=== PATIENT | female | born 1995 | race Caucasian/White ===

== ENCOUNTER 2019-03-23 10:57 | Outpatient (CLI) | payer BC, SELFPAY ==
[2019-03-23 11:50] LABS: Abs Immature Grans 0.01 k/cumm (0.0-0.09); Absolute Basophil Count 0.03 k/cumm (0.0-0.2); Absolute Eosinophil Count 0.13 k/cumm (0.0-0.7); Absolute Lymphocyte Count 1.49 k/cumm (1.2-3.4); Absolute Monocyte Count 0.58 k/cumm (0.11-0.7); Absolute Neutrophil Count 4.79 k/cumm (1.2-6.7); Basophils % 0.4; Eosinophils % 1.8; HCT 35.7 % (36.0-46.0); HGB 12.5 g/dL (12.0-15.5); Immature Grans % 0.1; Lymphocytes % 21.2; Mean Corpuscular Hemoglobin 32.1 pg (27.0-33.0); Mean Corpuscular Volume 91.5 fL (80-95); Mean Platelet Volume 11.5 fL (8.0-11.0); Monocytes % 8.3; Neutrophils % 68.2; Platelet Count 220 x1000/uL (130-400); White Blood Cell Count 7.03 k/cumm (4.4-10.8)
[2019-03-23 13:10] LABS: HCG Quant, Pregnancy 45346 mIU/mL (1-3); TSH (W/Ref FT4) 2.03 uIU/mL (0.36-3.74)
[2019-03-24 10:12] LABS: Rubella IgG Ab (UVM) Positive; Varicella IgG Antibody Negative
[2019-03-24 10:33] LABS: Hepatitis B Surface Ag Negative (NEGAT)
[2019-03-24 10:49] LABS: HIV-1/2 Ag & Ab Screen Negative (NEGAT)
[2019-03-24 10:50] LABS: Hepatitis C Ab w Rflx HCV PCR Negative (NEGAT)
[2019-03-24 12:57] LABS: Syphilis Total Ab w/Reflex Nonreactive (Nonreactive)
== END 2019-03-23 11:17 ==
PROVIDERS: PCP Internal Medicine; Visit Provider Advanced Practice Midwife
DX: Z34.91 Encounter for supervision of normal pregnancy, unspecified, first trimester (principal); R10.9 Unspecified abdominal pain
CPT/HCPCS: 36415; 86787; 86803; 86850; 86900; 86901; 87340; 87389; 84443; 84702; 85025; 86762; 86780

== ENCOUNTER 2019-04-02 11:03 | Outpatient (CLI) | payer BC, SELFPAY ==
[2019-04-02 13:50] LABS: HCG Quant, Pregnancy 53870 mIU/mL (1-3)
== END 2019-04-02 11:23 ==
PROVIDERS: PCP Internal Medicine; Visit Provider Obstetrics & Gynecology
DX: Z34.91 Encounter for supervision of normal pregnancy, unspecified, first trimester (principal)
CPT/HCPCS: 36415; 84702

== ENCOUNTER 2019-04-04 04:45 | Outpatient (CLI) | payer BC, SELFPAY | END 2019-04-04 05:05 | PROVIDERS: PCP Internal Medicine; Visit Provider Obstetrics & Gynecology | DX: Z34.91 Encounter for supervision of normal pregnancy, unspecified, first trimester (principal) | CPT/HCPCS: 36415; 84702 ==

== ENCOUNTER 2019-04-07 16:46 | Outpatient (CLI) | payer BC, SELFPAY ==
[2019-04-07 17:15] LABS: Abs Immature Grans 0.01 k/cumm (0.0-0.09); Absolute Basophil Count 0.03 k/cumm (0.0-0.2); Absolute Eosinophil Count 0.22 k/cumm (0.0-0.7); Absolute Lymphocyte Count 1.66 k/cumm (1.2-3.4); Absolute Monocyte Count 0.54 k/cumm (0.11-0.7); Absolute Neutrophil Count 5.07 k/cumm (1.2-6.7); Basophils % 0.4; Eosinophils % 2.9; HCT 37.5 % (36.0-46.0); HGB 12.9 g/dL (12.0-15.5); Immature Grans % 0.1; Mean Corp. HGB Concentration 34.4 g/dL (32.0-36.0); Mean Corpuscular Hemoglobin 31.4 pg (27.0-33.0); Mean Corpuscular Volume 91.2 fL (80-95); Mean Platelet Volume 11.4 fL (8.0-11.0); Monocytes % 7.2; Neutrophils % 67.4; Platelet Count 210 x1000/uL (130-400); RBC 4.11 m/cumm (4.00-5.20); RBC Distribution Width 12.1 % (11.7-14.6); White Blood Cell Count 7.53 k/cumm (4.4-10.8)
== END 2019-04-07 17:06 ==
PROVIDERS: PCP Internal Medicine; Visit Provider Urology
DX: O02.1 Missed abortion (principal)
CPT/HCPCS: 36415; 86850; 86900; 86901; 85025

== ENCOUNTER 2019-04-08 13:47 | Observation (INO) | payer BC, SELFPAY ==
[2019-04-08] VITALS (26 sets, daily range): BP systolic 86–116; BP diastolic 39–68; PULSE 60–91; RESP 10–20; TEMP 36.2–37.1; O2SAT 96–100
[2019-04-08] MEDS: Lactated Ringers 1,000 ML 125 ML IV ×3 (07:43→16:35)
--- NOTE | 2019-04-08 08:35 | POCSPONT_PTH ---
PATIENT: Madeleine Menchaca LOC: OBS U#:[id number] AGE/SX: 23/F ROOM: OBS.305 RE04/08/[address]: Marlon Bauer MD : 1995 BED: A DIS: 04/08/2019 SPEC #: [id number] RECD: 04/08/19 13:01 STATUS: RACHAEL REJessica #: [id number] MIAH: 04/08/19 08:[address]: Marlon Bauer DEPT: Surgical Specimen RECD BY: Naomi De La Cruz ENTERED: 04/08/19 13:04 SP TYPE: POCSPONT NAZ DR: Alis Castellon Tissues: 1 - ,SPONTANEOUS Procedures: GROSS AND MICRO LEVEL 4 Comments: [id number]
[2019-04-08] MEDS: fentaNYL 100 MCG/2 ML VIAL IVP ×3 (09:18→09:35)
--- NOTE | 2019-04-08 09:34 | W.PM.DSUDISC ---
Discharge Plan Disposition Patient Disposition: HOME Condition: Good Discharge Details Attending Provider: Marlon Bauer Primary Care Provider: Alis Castellon Home Meds and New Rx's Prescriptions: New hydrocodone-acetaminophen 5-325 mg Tablet 1 tab PO Q4H PRN PRNQty: 10 RF: 0 Continued acetaminophen 500 mg capsule 1,000 mg PO Q4H PRNRF: 0 albuterol sulfate 90 mcg/actuation HFA aerosol inhaler 2 puff IH Q4H PRNRF: 0 vitamin B complex Capsule 1 cap PO DAILY RF: 0 dicyclomine 20 mg tablet 20 mg PO QID PRNRF: 0 sucralfate [Carafate] 1 gram tablet 1 gm PO Q6H PRNRF: 0 pantoprazole [Protonix] 20 mg tablet,delayed release (DR/EC) 20 mg PO BID RF: 0 albuterol sulfate 8.5 GM HFA aerosol inhaler 2 puff PRN RF: 0 DS: Diagnosis Discharge Diagnosis (1) Missed : Status: Acute
[2019-04-08] MEDS: HYDROcodone 5/Acetaminophen 325 TAB PO (10:13)
[2019-04-08] MEDS: HYDROmorphone 2 MG/ML VIAL 0.5 MG IVP (11:15)
[2019-04-08] MEDS: LORazepam 2 MG/ML VIAL 0.5 MG IVP (11:31)
--- NOTE | 2019-04-08 14:45 | SUR.PHASEI ---
Pt was re-admitted to Phase 1 at 1110 for uncontrolled pain in Phase 2 recovery. Gege Neal from anesthesia was present and ordering pain medication to be administered. Pt was monitored and also received 0.5 mg ativan IV. Vital signs remained stable. When pt awoke from a nap her painand nausea were gone and she was ready to again be transferred to Phase 2 at 1216.
[2019-04-08] MEDS: Ketorolac 30 MG/ML VIAL IVP (16:33)
--- NOTE | 2019-04-08 17:05 | W.PM.OP ---
Date of service: 04/08/19 Time of Service: 17:05 Operative Note Operative Note DATE OF PROCEDURE: 04/08/19 PRE-OP DIAGNOSIS: Missed POST-OP DIAGNOSIS: same PROCEDURE: Suction D&C SURGEON: Marlon Bauer ANESTHESIA: MICHELLE ESTIMATED BLOOD LOSS: 50 PATHOLOGY: other (POC) COMPLICATIONS: None Patient was transported to: PACU Patient's condition: stable Procedure Description: The patient was taken to the operating room and after adequate level of general anesthesia was obtained the patient was placed in lithotomy position. The patient was prepped and draped in usual sterile manner. A weighted speculum was placed in the vagina with good visualization of the cervix. The anterior lip of the was grasped with a single-tooth tenaculum. The cervix was gently dilated with Echevarria dilators. An 8 [place] curved suction curette was advanced easily. Suction apparatus have been tested and activated. The curette was rotated. Copious products of conception were retrieved. Sharp curettage was performed. A second pass with the suction curette yielded additional products. A final sharp curettage confirmed uterine evacuation. The procedure was concluded at this point. All instrumentation was removed. The patient was transferred to PACU in stable condition.
--- NOTE | 2019-04-08 17:07 | W.PM.PROGNOT ---
Date of Service Date of service: 04/08/19 Time of Service: 17:08 Assessment and Plan Assessment and plan (1) Missed : Status: Acute Assessment and plan: Poor pain control postoperatively. This seems to be improved now. I feel that the patient is suitable for discharge home. We will follow-up with the patient over the phone tomorrow morning and she will follow-up in the office next week. Subjective Subjective Interval history since last seen: Postoperatively the patient was somewhat hypotensive in recovery. Her pain was poorly controlled. She had received 100 mcg of fentanyl immediately postoperatively. She was also supplied with 30 mg of IV Toradol and recovery. Due to pain she was given an additional dose of Dilaudid which did help her pain but also made her somewhat obtunded and nauseous. The decision was made to transfer the patient to the floor for observation through the day. Upon transfer she was given IV Tylenol and a B&O suppository. This afternoon she is still somewhat tired but feels better. Her pain is well controlled. Still has some mild nausea but has had no vomiting. Bleeding is minimal. Exam GI Other: On exam her abdomen is soft and appropriately tender. Objective Objective Clinical Data: Vital Signs Temperature 98.2 F 04/08/19 16:15 Temperature Source Tympanic 04/08/19 16:30 Pulse 87 04/08/19 16:30 Pulse Rhythm Regular 04/08/19 16:00 Respiratory Rate 18 04/08/19 16:30 Respiratory Effort 04/08/19 16:00 Respiratory Depth Normal 04/08/19 16:00 Respiratory Pattern Normal 04/08/19 16:00 Blood Pressure 116/68 04/08/19 16:30 Pulse Oximetry 96 04/08/19 16:30 Oxygen Delivery Method Room Air 04/08/19 16:30 Oxygen Flow Rate 0 04/08/19 16:30 Pain Level 5 04/08/19 16:33 Intake & Output 04/07/19 04/08/19 04/08/19 23:59 11:59 23:59 Intake Total 1022.917 / 2122.917 1100 / 2122.917 Balance 1022.917 / 2122.917 1100 / 2122.917 Weight 139 lb 15.896 oz Intake: IV 822.917 / 7045.216 4558 / 1822.917 Oral 200 / 300 100 / 300 Other: Urine Appearance Clear Emesis Description None None
== END 2019-04-08 17:34 | disposition home or self-care (01) ==
LOC: SUR 14:07 → OBS 16:33
PROVIDERS: Admitting Provider Obstetrics & Gynecology; PCP Internal Medicine; Visit Provider Obstetrics & Gynecology
PROC: 10D17ZZ Extraction of Products of Conception, Retained, Via Natural or Artificial Opening (ICD-10-PCS; CPT 59841; principal; 2019-04-08 08:15)
DX: O02.1 Missed abortion (principal); G89.18 Other acute postprocedural pain
CPT/HCPCS: 59820; 88305; 99233; J1100; J1885; J2060; J2250; J2405; J3010

== ENCOUNTER 2019-04-12 10:09 | Outpatient (CLI) | payer BC, SELFPAY ==
--- NOTE | 2019-04-12 09:47 | DI.US_ITS ---
EXAM: US PELVIS TRANSVAGINAL CLINICAL HISTORY: Missed , O02.1, Rule out retained products of conception, S/P D C TECHNIQUE: Ultrasound performed using standard protocol. COMPARISON: CHEST ABD PELVIS WITH CONTRAST from 05/30/2016 FINDINGS: The uterus measures 9.1 x 4.4 x 6.5 cm. There is mixed echogenicity material seen within the endome trium, which is avascular, likely representing clot. There is no definite evidence of retained produ cts of conception. The clot measures 4.3 x 1.8 x 3.5 cm. The ovaries are normal in size and appeara nce. There is no free fluid. IMPRESSION: Heterogeneous material within the endometrial cavity, consistent with clot. No visible retained prod ucts of conception.
[2019-04-12 10:39] LABS: Abs Immature Grans 0.01 k/cumm (0.0-0.09); Absolute Basophil Count 0.01 k/cumm (0.0-0.2); Absolute Eosinophil Count 0.19 k/cumm (0.0-0.7); Absolute Lymphocyte Count 0.91 k/cumm (1.2-3.4); Absolute Monocyte Count 0.65 k/cumm (0.11-0.7); Basophils % 0.2; Eosinophils % 3.1; HCT 29.7 % (36.0-46.0); HGB 10.1 g/dL (12.0-15.5); Immature Grans % 0.2; Lymphocytes % 14.7; Mean Platelet Volume 11.3 fL (8.0-11.0); Monocytes % 10.5; Neutrophils % 71.3; Platelet Count 173 x1000/uL (130-400); RBC 3.16 m/cumm (4.00-5.20); RBC Distribution Width 12.6 % (11.7-14.6); White Blood Cell Count 6.17 k/cumm (4.4-10.8)
== END 2019-04-12 10:29 ==
PROVIDERS: PCP Internal Medicine; Visit Provider Obstetrics & Gynecology
DX: O02.1 Missed abortion (principal); R10.9 Unspecified abdominal pain; N85.8 Other specified noninflammatory disorders of uterus; Z98.890 Other specified postprocedural states
CPT/HCPCS: 36415; 76830; 76856; 85025

== ENCOUNTER 2019-08-16 14:43 | Outpatient (CLI) | payer BC, SELFPAY ==
[2019-08-16 15:20] LABS: HCG Quant, Pregnancy 210 mIU/mL (1-3)
== END 2019-08-16 15:03 ==
PROVIDERS: PCP Internal Medicine; Visit Provider Obstetrics & Gynecology
DX: Z34.91 Encounter for supervision of normal pregnancy, unspecified, first trimester (principal)
CPT/HCPCS: 36415; 84702

== ENCOUNTER 2019-08-18 00:15 | Outpatient (CLI) | payer BC, SELFPAY ==
[2019-08-18 10:59] LABS: HCG Quant, Pregnancy 454 mIU/mL (1-3)
== END 2019-08-18 00:35 ==
PROVIDERS: Obstetrics & Gynecology; PCP Internal Medicine; Visit Provider Internal Medicine Gastroenterology
DX: R10.2 Pelvic and perineal pain (principal); Z32.01 Encounter for pregnancy test, result positive
CPT/HCPCS: 36415; 84702

== ENCOUNTER 2019-09-21 10:53 | Outpatient (REF) | payer BC, SELFPAY ==
--- NOTE | 2019-09-21 10:30 | PAPFT_PTH ---
PATIENT: Madeleine Menchaca LOC: [facility] U#:[id number] AGE/SX: 24/F ROOM: RE09/21/[address]: Rai Bailey RN : 1995 BED: DIS: 09/21/2019 SPEC #: [id number] RECD: 09/21/19 12:19 STATUS: RACHAEL REJessica #: [id number] MIAH: 09/21/19 10:[address]: Rai Bailey DEPT: [facility] Cytology RECD BY: Obed Davis ENTERED: 09/21/19 12:20 SP TYPE: PAPFT OTHR DR: Alis Castellon Tissues: 1 - CX/ENDOCX FOR PAP SMEARS Procedures: PAP THIN PREP/UVM Screening Comments: [id number]
[2019-09-21 11:33] LABS: Abs Immature Grans 0.03 k/cumm (0.0-0.09); Absolute Basophil Count 0.02 k/cumm (0.0-0.2); Absolute Eosinophil Count 0.32 k/cumm (0.0-0.7); Absolute Lymphocyte Count 1.46 k/cumm (1.2-3.4); Absolute Monocyte Count 0.55 k/cumm (0.11-0.7); Absolute Neutrophil Count 6.84 k/cumm (1.2-6.7); Basophils % 0.2; Eosinophils % 3.5; HCT 37.8 % (36.0-46.0); HGB 13.2 g/dL (12.0-15.5); Immature Grans % 0.3 %; Lymphocytes % 15.8; Mean Corp. HGB Concentration 34.9 g/dL (32.0-36.0); Mean Corpuscular Hemoglobin 31.6 pg (27.0-33.0); Mean Corpuscular Volume 90.4 fL (80-95); Mean Platelet Volume 10.4 fL (8.0-11.0); Neutrophils % 74.2; Platelet Count 271 x1000/uL (130-400); RBC 4.18 m/cumm (4.00-5.20); White Blood Cell Count 9.22 k/cumm (4.4-10.8)
[2019-09-21 12:07] LABS: TSH (W/Ref FT4) 1.46 uIU/mL (0.36-3.74)
[2019-09-21 14:31] LABS: *AMPHETAMINES SCREEN URINE Negative (Negative); *BARBITURATES SCREEN URINE Negative (Negative); *BENZODIAZEPINES SCREEN URINE Negative (Negative); Cannabinoids THC Negative (Negative); Cocaine Screen,Urine Negative (Negative); METHADONE URINE SCREEN Negative (Negative); OPIATES URINE SCREEN Negative (Negative)
[2019-09-21 14:36] LABS: Tricyclic Antidepressants Negative (Negative)
[2019-09-22 10:02] LABS: Hepatitis B Surface Ag Negative (Negative)
[2019-09-22 10:26] LABS: HIV-1/2 Ag & Ab Screen Negative (Negative)
[2019-09-22 10:28] LABS: Hepatitis C Ab w Rflx HCV PCR Negative (Negative)
[2019-09-22 14:41] LABS: Chlamydia Result Negative (Negative); GC Result Negative (Negative)
[2019-09-23 10:50] LABS: Syphilis Total Ab w/Reflex Nonreactive (Nonreactive)
[2019-09-24 11:38] LABS: Varicella IgG Antibody Negative (See Note)
[2019-09-24 11:50] LABS: Rubella IgG Ab (UVM) Positive (See Note)
[2019-09-26 05:56] LABS: Buprenorphine Negative; Norbuprenorphine Negative
== END 2019-09-21 11:13 ==
LOC: LBN 10:53
PROVIDERS: PCP Internal Medicine; Visit Provider Advanced Practice Midwife
DX: Z34.91 Encounter for supervision of normal pregnancy, unspecified, first trimester (principal); Z11.4 Encounter for screening for human immunodeficiency virus [HIV]; Z11.59 Encounter for screening for other viral diseases; Z01.84 Encounter for antibody response examination; Z11.3 Encounter for screening for infections with a predominantly sexual mode of transmission; Z12.4 Encounter for screening for malignant neoplasm of cervix
CPT/HCPCS: 80307; 86787; 86803; 86850; 86900; 86901; 87340; 87389; 87491; 87591; 88142; 84443; 85025; 86762; 86780; 87086

== ENCOUNTER 2019-11-22 00:26 | Outpatient (CLI) | payer BC, SELFPAY ==
--- NOTE | 2019-11-22 07:00 | DI.US_ITS ---
EXAM: US OB 2-3 TRIMESTER CLINICAL HISTORY: 18-WK ANATOMY SURVEY, Z3A.18. COMPARISON: No exams were available for comparison TECHNIQUE: Transabdominal obstetrical ultrasound performed. FINDINGS: Sonographic images demonstrate a single intrauterine gestation in breech position. Plancenta:Fundal and posterior Predicted gesational age: 18 weeks 0 days Estimated date of delivery 23 April 2020 weeks heart rate motion is Dopplered at: 157 BPM. BPD: 42 mm = 18+ 5 weeks HC: 154mm = 18+ 2 weeks AC: 125mm = 18+ 1 weeks FL: 27mm = 18+ 2 weeks EFW: N/a Grams = % Sonographically assessed composite gestational age: 18+ 3 weeks Estimated date of delivery based on this ultrasound is: 21 April 2020 Amniotic fluid index: N/a cm. Amount of fluid is within normal limits. The anatomy was reasonably well seen. No abnormalities are identified. IMPRESSION: survey is within normal limits. DATA REPOSITORY:
== END 2019-11-22 00:46 ==
PROVIDERS: PCP Internal Medicine; Visit Provider Advanced Practice Midwife
DX: Z34.92 Encounter for supervision of normal pregnancy, unspecified, second trimester (principal); Z3A.18 18 weeks gestation of pregnancy
CPT/HCPCS: 76805

== ENCOUNTER 2020-01-08 07:27 | Outpatient (CLI) | payer BC, SELFPAY | END 2020-01-08 07:47 | PROVIDERS: PCP Internal Medicine; Visit Provider Obstetrics & Gynecology | DX: O60.02 Preterm labor without delivery, second trimester (principal); Z3A.25 25 weeks gestation of pregnancy | CPT/HCPCS: 59025 ==

== ENCOUNTER 2020-01-17 04:47 | Outpatient (CLI) | payer BC, SELFPAY ==
[2020-01-17 16:46] LABS: Abs Immature Grans 0.07 10^3/uL (0.0-0.06); Absolute Basophil Count 0.02 10^3/uL (0.0-0.2); Absolute Eosinophil Count 0.19 10^3/uL (0.0-0.7); Absolute Lymphocyte Count 1.49 10^3/uL (1.2-3.4); Basophils % 0.2; Eosinophils % 2.2; HCT 30.8 % (36.0-46.0); HGB 10.7 g/dL (11.2-15.7); Immature Grans % 0.8; Lymphocytes % 17.2; MCH 31.6 pg (27.0-33.0); MCHC 34.7 % (32.0-36.0); MCV 90.9 fL (80-95); Monocytes % 6.9; Neutrophils % 72.7; Nucleated RBC 0 %; Platelet Count 202 10^3/uL (130-400); RBC 3.39 10^6/uL (3.93-5.22); RDW 12.2 % (11.7-14.6); RDW-SD 40.3 fL; WBC 8.67 10^3/uL (4.4-10.8)
[2020-01-17 17:00] LABS: Glucose,1 Hr (Glucola) 99 mg/dL (80-140)
== END 2020-01-17 05:07 ==
PROVIDERS: PCP Internal Medicine; Visit Provider Obstetrics & Gynecology
DX: Z34.90 Encounter for supervision of normal pregnancy, unspecified, unspecified trimester (principal)
CPT/HCPCS: 36415; 82950; 85025

== ENCOUNTER 2020-02-27 14:08 | Inpatient (IN) | payer BC, SELFPAY ==
[2020-02-27 14:40] VITALS: BP 103/60; PULSE 86; RESP 20; TEMP 36.6
[2020-02-27] MEDS: Terbutaline 1 MG/ML VIAL 0.25 MG SC ×2 (15:24→22:48)
[2020-02-27 16:08] VITALS: BP 111/67; PULSE 102
[2020-02-27] MEDS: Fluconazole 150 MG TAB PO (16:17)
[2020-02-27 16:21] VITALS: BP 111/67; PULSE 102
--- NOTE | 2020-02-27 18:20 | HPE_ITS ---
Date of service: 02/27/20 Time of Service: 18:20 Assessment and Plan Assessment and plan (1) contractions: Status: Acute Assessment and plan: Will place on 24 hour observation. IVF bolus with LR If contractions continue will trial Nifpedipine 10 mg PO q8h. She did have a history of hypotension from verapamil during treatment for headaches so she is at increased risk of hypotension with this approach. If contractions continue or cervical change occurs, will start on magnesium sulfate and consider transfer to [facility]. Will administer betamethasone series for lung maturity. OB-HPI Labor/Delivery History of Present Illness Reason for Visit: R/O LABOR Chief Complaint: Uterine Contractions. ТАТЬЯНА Calculator Estimated Delivery Date Method Current WG Current Estimate 04/23/20 LMP (Certain) 32w 0d Other Estimates 04/22/20 Ultrasound #1 32w 1d History of Present Expected Delivery Route/Plan - elects MD care FOB/ - Juliano Menchaca Varicella Non-Immune, pt accepts vaccination Specific Issues/Plan 1. low dose asa 2` to: nullip/mother w/ pre-e. Accepts rec. of low dose asa will initiate @ 12 weeks. 2. progesterone suppositories pv till [address] Bauer. 3. Declined all optional ap labs, declination signed al 4. Hx IBS and s/p cholecystectomy 2018 5. 28-week hematocrit 30%. Recommended patient begin daily supplemental iron. 6. Labia tenderness. No evidence of Bartholin's gland swelling. Narrative: 24 year old @ 32.0 weeks presents with complaints of possible contractions since approximately 7 am this morning. She denies leakage of fluid or vaginal bleeding. The contractions are reported as strong and ten minutes apart throughout the day. On initial evaluation the cervix was noted to be closed but 70% effaced and fetus at -3 station. She was provided a single dose of terbutaline which stopped the contractions for approximately one hour but the did recur and increase in frequency again. Review of Systems All systems reviewed & are unremarkable except as noted in HPI and below PFSH Medical History (Updated 02/27/20 @ 18:27 by Marlon Bauer MD) Anxiety Asthma Cyst of Bartholin's gland Dysuria Migraine headache with aura Surgical History History of esophagogastroduodenoscopy (EGD) Hx of appendectomy Family History (Updated 09/21/19 @ 09:55 by Rai Bailey CNM) Mother Diverticulosis of colon with hemorrhage Hypertension w/ Asthma H/O: hysterectomy Father Heart disease COPD (chronic obstructive pulmonary disease) Aneurysm of heart Social History (Updated 04/02/19 @ 10:21 by Dionne Eisenberg RN) Smoking/Tobacco Use Status: Never Alcohol Intake: never Drug use: Never Substance use type: does not use Current gender identity: female Seatbelt use: always Do you feel safe at home: Yes Do you feel safe in your relationship?: Yes History History 2 Para 0 Hx # Term Pregnancies 0 Multiple births 0 Hx # Pregnancies 0 Ectopic pregnancies 0 AB induced 0 Hx Number of Living Children 0 AB spontaneous 1 Past Pregnancies Del. Date GA/Weeks # Outcome Route Wgt Sex Labor Lgth Anesthes ia Location Prov Complic 04/08/[address] Whitman [place] Delivery Date: 04/08/19 Miscarriage at 8 with a D/C on 04/08/19 Belkis Rebolledo LPN [facility] Home Medications and Allergies Home Medications Medication Instructions Recorded Confirmed Type acetaminophen 500 mg capsule 1,000 mg PO Q4H PRN cap 03/23/19 02/27/20 History albuterol sulfate 90 mcg/actuation 2 puff IH Q4H PRN gm 03/23/19 02/27/20 History aerosol inhaler pantoprazole 20 mg tablet,delayed 20 mg PO BID tab 04/02/19 02/27/20 History release calcium carbonate 500 mg calcium 1,000 mg PO DAILY tab 08/20/19 02/27/20 History (1,250 mg) tablet prenat.vits,cierra,itd-pejy-isxla 1 tab PO DAILY 08/20/19 02/27/20 History aspirin 81 mg tablet,delayed 81 mg PO DAILY #90 tab 10/19/19 02/27/20 Rx release epinephrine 0.3 mg/0.3 mL 0.3 mg IM ONCE PRN 10/19/19 02/27/20 History injection, auto-injector promethazine 25 mg tablet 25 mg PO Q6H PRN #30 tab 02/04/20 02/27/20 Rx Allergies Allergy/AdvReac Type Severity Reaction Status Date / Time apple Allergy Verified 02/18/20 15:16 Cephalosporins Allergy Verified 02/18/20 15:16 egg Allergy Verified 02/18/20 15:16 gluten Allergy Verified 02/18/20 15:16 chico Allergy Verified 02/18/20 15:16 peach Allergy Verified 02/18/20 15:16 plum Allergy Verified 02/18/20 15:16 Sulfa (Sulfonamide Allergy Verified 02/18/20 15:16 Antibiotics) verapamil Allergy dizziness, Verified 02/18/20 15:16 headaches almonds Allergy Uncoded 02/18/20 15:16 mushrooms Allergy Uncoded 02/18/20 15:16 Exam Physical Exam Vital signs: Temp Pulse Resp BP 97.9 F 102 H 20 111/67 02/27/20 14:40 02/27/20 16:21 02/27/20 14:40 02/27/20 16:21 Detailed Labor and Delivery Exam Martinez Score: Cervical Points Exam 0 1 2 3 Dilation Closed 1-2cm 3-4 cm 5-6cm Effacement 0-30% 40-50% 60-70% 80% Consistency Firm Medium Soft Station -3 -2 -1,0 +1,+2 Position Posterior Mid Anterior Results Results Group Beta Strep: Not Done Blood Type: O+ Rubella Status: Immune Varicella Immunity: Nonimmune Risk Assessment Risk for Shoulder Dystocia Historical/Initial OB: NEGATIVE FOR: Pelvic Abnormality, Pre- BMI>30, Previous Shoulder Dystocia or Previous Macrosomia Increased Risk?: No Date/Initial: 09/21/19 al Risk for Pre-Eclampsia Daily Dose ASA Indicated: Yes (2` to nullip status & mother with b/p issues w/ her first . al) Date Initiated/Initials: 09/21/19 pt accepts rec. of low dose asa will start @ 12 weeks al. Yes, if one or more: POSTIVE FOR: APA Syndrome; NEGATIVE FOR: Hx Pre-E/Gest HTN, Chronic HTN, Multiple Gestation, Pre- gestational DM, Renal Disease or Systemic Lupus Yes, if 2 or more: POSITIVE FOR: Nulliparity and Mother/Sister w/ Pre-E (pt states her mother had b/p issues w/ her first of 3 pregnancies.); NEGATIVE FOR: Age>= 35 yrs, >10yr btwn pregnancies, BMI>30, ethinicty or Previous IUGR Risk for Post- Hemorrhage Initial: NEGATIVE FOR: Multiple Gestation, Previous PPH, Known Clotting Deficiency, Grand Multiparity or Anticoagulation At Risk?: No (@ iob 09/21/19 al) Risks Reviewed Risks Reviewed Upon Admission: Yes
[2020-02-27 18:23] VITALS: BP 108/59; PULSE 82; RESP 20; TEMP 36.9
[2020-02-27] MEDS: Lactated Ringers 1,000 ML 125 ML IV ×2 (18:24→22:48)
[2020-02-27] MEDS: Normal Saline Flush 10 ML SYR IVP (18:24)
[2020-02-27] MEDS: Lactated Ringers 500 ML IV (18:24)
[2020-02-27] MEDS: Betamet Acet/Betamet Na Ph Inj. 30 MG/5 ML 12 MG IM (19:29)
[2020-02-27 20:55] VITALS: BP 97/56; PULSE 76
[2020-02-27] MEDS: Pantoprazole 40 MG TABCR PO (22:48)
[2020-02-28] VITALS (23 sets, daily range): BP systolic 90–122; BP diastolic 50–58; PULSE 86–103; RESP 16–18; TEMP 36.5–36.8; O2SAT 99
[2020-02-28] MEDS: Normal Saline Flush 10 ML SYR IVP (03:09)
[2020-02-28] MEDS: Ondansetron 4 MG/2 ML VIAL IVP (03:09)
[2020-02-28] MEDS: MAGNESIUM SULFATE 20 GM/500 ML BAG IV ×2 (05:59→14:12)
[2020-02-28] MEDS: Lactated Ringers 1,000 ML 125 ML IV (06:05)
--- NOTE | 2020-02-28 08:19 | W.PM.PROGNOT ---
Date of Service Date of service: 02/28/20 Time of Service: 08:19 Assessment and Plan Assessment and plan (1) contractions: Status: Acute Assessment and plan: Change to full admit Continue magnesium sulfate infusion until betamethasone series is complete. If patient displays cervical change will arrange transfer to [facility]. Obtain CBC, T&S, GBS and Covid today. Subjective Subjective Interval history since last seen: The patient did receive two doses of terbutaline yesterday and continued to report contractions. At approximately 4 am the contractions increased in intensity and she displayed no cervical change overnight on multiple examinations. Because of the increase in intensity of the contractions we did start her on Magnesium sulfate this morning with a 4gm loading dose followed by 2 gm / hour thereafter. First dose of betamethasone was administered at 1900 hrs. Objective Last Vital Signs Temp 97.7 F 02/28/20 07:26 Pulse 90 02/28/20 07:26 Resp 18 02/28/20 07:26 BP 97/54 L 02/28/20 07:26 Pulse Ox 99 02/28/20 06:06
[2020-02-28 08:48] LABS: Abs Immature Grans 0.13 10^3/uL (0.0-0.06); Absolute Basophil Count 0.02 10^3/uL (0.0-0.2); Absolute Lymphocyte Count 0.75 10^3/uL (1.2-3.4); Basophils % 0.2; HCT 31.6 % (36.0-46.0); Immature Grans % 1.1; Lymphocytes % 6.3; MCH 32.4 pg (27.0-33.0); MCHC 34.8 % (32.0-36.0); MCV 92.9 fL (80-95); MPV 10.9 fL (8.0-11.0); Monocytes % 2.5; Neutrophils % 89.9; Nucleated RBC 0 %; Platelet Count 189 10^3/uL (130-400); RDW 12.5 % (11.7-14.6); RDW-SD 42.7 fL; WBC 11.83 10^3/uL (4.4-10.8)
[2020-02-28 08:50] LABS: Absolute Neutrophil Count 10.64 10^3/uL (1.2-6.7)
--- NOTE | 2020-02-28 11:30 | W.PM.PROGNOT ---
Date of Service Date of service: 02/28/20 Time of Service: 11:31 Assessment and Plan Assessment and plan (1) contractions: Status: Acute Assessment and plan: Patient has had contractions at 32 weeks and 1 day. She initially was seen last night and received tocolytics including terbutaline. This did not cease her contractions. She was not a candidate for fibronectin at that time, in light of the fact that she had had a previous cervical examination. Her contractions persisted without significant cervical change though patient at that point was somewhat uncomfortable. She was started on magnesium sulfate for tocolyse this and neuro protection in order to allow patient to have both doses of steroids 24 hours apart. I saw her and evaluated her this morning at approximately 1130. She reports subjective contractions however these do not palpate nor do the graft particularly well. Cervical change is negligible with a cervix that is approximately 50% effaced and closed with vertex high out of the pelvis. Have a 20-minute conversation both with patient and her parent regarding neuro protection, pulmonary lung maturity, delivery at 32 weeks. My impression is that at this point she is clinically stable. The suggestion would be to maintain her on her magnesium sulfate in light of the fact that that was started this morning. No cervical checks if possible for 24 hours for collection of a fibronectin swab in 24 hours time. Laboratory studies that were done are essentially unremarkable. She will have pneumatic compression stockings to help prevent thromboembolism. Spoke with Dr. Dunbar at [facility] who agrees with the current plan. We will continue tocolyse this for now. Patient will receive her second dose of steroids. She will have cervical examination as indicated for increased contractions. If no increasing contractions, defer cervical examination for 24 hours to obtain a fibronectin swab at 11 AM. If negative DC magnesium sulfate. If progression of recurrent contractions to labor would consider transfer of care to tertiary care center at [facility]. (2) : Status: Acute Subjective Subjective Patient reports: no new complaints and no bowel movement Interval history since last seen: Still having contractions, irregular. Concern about transfer to tertiary care posed by patient and mother. Numerous questions answered Exam Narrative Exam Narrative: Comfortable Const General: cooperative, healthy appearing, comfortable and no acute distress Nutritional Appearance: average body habitus Orientation: alert and oriented x3 HENMT Head: normal to inspection Eyes General: appearance normal, both eyes and all related structures Resp Effort & Inspection: normal respiratory effort and able to speak in complete sentences Auscultation: clear to auscultation bilaterally Cardio Jugular venous pressure: no JVD Palpation: normal PMI Rate: regular rate Rhythm: regular rhythm GI Inspection: normal to inspection Palpation: soft External Female Exam: normal external appearance Speculum Exam - Cervix: No cervical os open OB/External & Speculum: no bleeding, no vulvar tenderness and No cervical os open Manual OB Exam: not dilated, effaced 50% and station high Skin General skin exam: no rashes or lesions noted Neuro General: patient alert and patient oriented x3 Cognition: normal cognition Speech: speech normal Objective Last Vital Signs Temp 98.1 F 02/28/20 11:15 Pulse 93 H 02/28/20 11:18 Resp 16 02/28/20 11:15 BP 105/57 L 02/28/20 11:18 Pulse Ox 99 02/28/20 06:06 Laboratory Results - last 24 hr 02/28/20 02/28/20 08:36 08:36 WBC 11.83 H RBC 3.40 L Hgb 11.0 L Hct 31.6 L MCV 92.9 MCH 32.4 MCHC 34.8 RDW 12.5 Plt Count 189 MPV 10.9 Immature Gran % 1.1 Neutrophils % 89.9 Lymphocytes % 6.3 Monocytes % 2.5 Eosinophils % 0.0 Basophils % 0.2 Nucleated RBC % 0 Absolute Neutrophils 10.64 H Absolute Lymphocytes 0.75 L Absolute Monocytes 0.30 Absolute Eosinophils 0.00 Absolute Basophils 0.02 Patient ABO/Rh O Positive Antibody Screen Negative
[2020-02-28] MEDS: Lactated Ringers 1,000 ML 75 ML IV (14:11)
[2020-02-28] MEDS: Acetaminophen 500 MG TAB 1000 MG PO (15:29)
--- NOTE | 2020-02-28 16:40 | PGE_ITS ---
Date of Service Date of service: 02/28/20 Time of Service: 16:40 Assessment and Plan Assessment and plan (1) contractions: Status: Acute Assessment and plan: Patient has had contractions without significant labor. She has had no cervical change. She has had an overwhelmingly reactive heart rate tracing during the course of her stay with us. She has no bleeding or discharge. She is received 1 dose of betamethasone is due for her second to complete a course. Due to her symptomatology and her lack of contractions magnesium sulfate was discontinued. We had a lengthy conversation both with patient and her mother regarding the difference between contractions and true labor. She appears to be well, and not in labor. We will discontinue her magnesium sulfate. She will receive that second dose of betamethasone this evening. If she continues to be asymptomatic, she will be discharged home. She understands pelvic rest. She will be seen back in the hospital tomorrow at 11:00 for fibronectin swab. If her fibronectin is negative she will have a routine care. If it is positive we may modify with more frequent monitoring. Subjective Subjective Interval history since last seen: Patient seen and examined this afternoon. On presentation to the room she states that she was having some chest heaviness in her upper chest and neck area. Her vital signs are stable. She has had a scant and irregular contraction. Baby is moving and active. She denies vaginal bleeding. She has no chest pain other than her reported heaviness. Exam Narrative Exam Narrative: Patient seen and examined and magnesium sulfate was turned off due to this chest heaviness. Her lungs are clear her abdomen is soft and no ntender. Category 1 heart rate tracing with no palpable or appreciable contractions noted. Her extremities have no clubbing cyanosis or edema. She has Objective Last Vital Signs Temp 98.1 F 02/28/20 14:15 Pulse 89 02/28/20 15:12 Resp 16 02/28/20 14:15 BP 98/56 L 02/28/20 15:12 Pulse Ox 99 02/28/20 06:06 Laboratory Results - last 24 hr 02/28/20 02/28/20 08:36 08:36 WBC 11.83 H RBC 3.40 L Hgb 11.0 L Hct 31.6 L MCV 92.9 MCH 32.4 MCHC 34.8 RDW 12.5 Plt Count 189 MPV 10.9 Immature Gran % 1.1 Neutrophils % 89.9 Lymphocytes % 6.3 Monocytes % 2.5 Eosinophils % 0.0 Basophils % 0.2 Nucleated RBC % 0 Absolute Neutrophils 10.64 H Absolute Lymphocytes 0.75 L Absolute Monocytes 0.30 Absolute Eosinophils 0.00 Absolute Basophils 0.02 Patient ABO/Rh O Positive Antibody Screen Negative
--- NOTE | 2020-02-28 16:46 | DSE_ITS ---
Date of service: 02/28/20 Time of Service: 16:46 DS: Diagnosis Discharge Diagnosis (1) contractions: Status: Acute Discharge Plan Disposition Patient Disposition: HOME Condition: Good Discharge Details Reason For Visit: R/O LABOR Admit Date/Time: 02/28/20 08:25 Admit Provider: Marlon Bauer Attending Provider: Marlon Bauer Primary Care Provider: Krys Bey Hospital Course Hospital Course: Patient was admitted to the center with complaints of uterine contractions. She had slight amount of cervical shortening without cervical dilation. This remained persistent. She was given tocolyse this with terbutaline per Dr. Bauer and subsequently started on magnesium sulfate for continued uterine activity. She did receive first dose of betamethasone and laboratory studies. She has also had a COVID-19 swab. Due to the fact that she remained stable without significant contractility or cervical change and some mild symptoms with her magnesium magnesium was discontinued. During the course of her stay, I did also contact maternal- medicine at [facility] and spoke with Dr. Dunbar regarding the patient's condition. If her her condition deteriorated or labor increased they would be happy to receive her as a transfer. She was discharged to home today at modified rest and will be seen in the center tomorrow for a fibronectin swab Home Meds and New Rx's Prescriptions: No Action prenat.vits,cierra,efn-flho-xuzkp Tablet 1 tab PO DAILY RF: 0 calcium carbonate [Calcium 500] 500 mg calcium (1,250 mg) tablet 1,000 mg PO DAILY RF: 0 promethazine 25 mg tablet 25 mg PO Q6H PRN (Reason: nausea and vomiting) Qty: 30 RF: 1 acetaminophen 500 mg capsule 1,000 mg PO Q4H PRNRF: 0 albuterol sulfate 90 mcg/actuation HFA aerosol inhaler 2 puff IH Q4H PRNRF: 0 pantoprazole [Protonix] 20 mg tablet,delayed release (DR/EC) 20 mg PO BID RF: 0 epinephrine [EpiPen 2-[place]] 0.3 mg/0.3 mL auto-injector 0.3 mg IM ONCE PRNRF: 0 aspirin 81 mg tablet,delayed release (DR/EC) 81 mg PO DAILY Qty: 90 RF: 4 Discharge Instructions Activity:: Pelvic rest Equipment/Supplies:: No Equipment Needed Diet:: Normal Diet Discharge Orders Discharge Orders: Discharge Order (Routine); Ordered 02/28/20 Ordered By: Shima Medrano DS: Summary Summary Time spent discussing smoking cessation with patient: more than 10 minutes Status at Discharge Functional status at discharge: independent ambulation Overall status at discharge: patient is back to baseline Mental Status: mental status grossly normal Speech and Movement: speech and movement normal Mood: congruent mood Affect: normal affect Time Spent with Patient providing and/or coordinating discharge services: Greater than 30 minutes Exam Const General: cooperative, healthy appearing, comfortable and no acute distress Orientation: alert and oriented x3 HENMT Head: normocephalic and atraumatic Eyes General: appearance normal, both eyes and all related structures Resp Effort & Inspection: normal respiratory effort, no cough and not labored Auscultation: clear to auscultation bilaterally, no rales, no rhonchi and no wheezes Cardio Jugular venous pressure: no JVD Palpation: normal PMI Rate: regular rate Rhythm: regular rhythm Heart Sounds: S1 normal, S2 normal and no murmurs GI Inspection: normal to inspection Palpation: soft OB/External & Speculum: deferred, external exam normal and no bleeding Other: Uterus soft, no contractions noted Skin General skin exam: no rashes or lesions noted Hair: normal Psych Mental Status: mental status grossly normal Speech and Movement: speech and movement normal Mood: congruent mood Affect: normal affect DS: Data Vitals/I&O Vitals and I&O: Vital Signs Temperature 98.1 F 02/28/20 14:15 Pulse 89 02/28/20 15:12 Pulse Rhythm Regular 02/28/20 08:00 Respiratory Rate 16 02/28/20 14:15 Blood Pressure 98/56 L 02/28/20 15:12 Blood Pressure Mean 81 02/27/20 16:21 Pulse Oximetry 99 02/28/20 06:06 Oxygen Delivery Method Room Air 02/27/20 14:40 Oxygen Flow Rate 0 02/27/20 14:40 Pain Level 3 02/28/20 15:29 Intake & Output 02/27/20 02/28/20 02/28/20 23:59 11:59 23:59 Intake Total 1450 / 1450 1545.834 / 3182.917 1637.083 / 3182.917 Output Total 550 / 550 2225 / 3625 1400 / 3625 Balance 900 / 900 -679.166 / -442.083 237.083 / -442.083 Weight 162 lb Intake: IV 1050 / 1050 1545.834 / 2182.917 637.083 / 2182.917 Oral 400 / 400 1000 / 1000 Output: Urine 550 / 550 2225 / 3625 1400 / 3625 Other: Urine Color Yellow Yellow Data Completed and Pending Labs on day of discharge: Labs from last 24 hours 02/28/20 02/28/20 02/28/20 08:36 08:36 08:15 WBC 11.83 H RBC 3.40 L Hgb 11.0 L Hct 31.6 L MCV 92.9 MCH 32.4 MCHC 34.8 RDW 12.5 Plt Count 189 MPV 10.9 Immature Gran % 1.1 Neutrophils % 89.9 Lymphocytes % 6.3 Monocytes % 2.5 Eosinophils % 0.0 Basophils % 0.2 Nucleated RBC % 0 Absolute Neutrophils 10.64 H Absolute Lymphocytes 0.75 L Absolute Monocytes 0.30 Absolute Eosinophils 0.00 Absolute Basophils 0.02 COVID-19 PCR Pending Nasopharyn COVID-19 PCR Pending Ref Test Perform Site Pending Patient ABO/Rh O Positive Antibody Screen Negative 02/28/20 08:40 Vaginal/Rectal Group B Streptococcus Screen (QING) - Pending Preliminary micro results at discharge 02/28/20 08:40 Group B Streptococcus Screen (QING) - Pending Vaginal/Rectal PFSH Medical History (Updated 02/27/20 @ 18:27 by Marlon Bauer MD) Anxiety Asthma Cyst of Bartholin's gland Dysuria Migraine headache with aura Surgical History History of esophagogastroduodenoscopy (EGD) Hx of appendectomy Family History (Updated 09/21/19 @ 09:55 by Rai Bailey CNM) Mother Diverticulosis of colon with hemorrhage Hypertension w/ Asthma H/O: hysterectomy Father Heart disease COPD (chronic obstructive pulmonary disease) Aneurysm of heart Social History (Updated 04/02/19 @ 10:21 by Dionne Eisenberg RN) Smoking/Tobacco Use Status: Never Alcohol Intake: never Drug use: Never Substance use type: does not use Current gender identity: female Seatbelt use: always Do you feel safe at home: Yes Do you feel safe in your relationship?: Yes History History 2 Para 0 Hx # Term Pregnancies 0 Multiple births 0 Hx # Pregnancies 0 Ectopic pregnancies 0 AB induced 0 Hx Number of Living Children 0 AB spontaneous 1 Past Pregnancies Del. Date GA/Weeks # Outcome Route Wgt Sex Labor Lgth Anesthes ia Location Prov Complic 04/08/[address] Antonette mayberry Delivery Date: 04/08/19 Miscarriage at 8 with a D/C on 04/08/19 Belkis Rebolledo LPN
[2020-02-28 21:02] LABS: COVID-19 RT-PCR UVMMC Result Negative (Negative)
== END 2020-02-28 18:10 | disposition home or self-care (01) | DRG 833 ==
PROVIDERS: Admitting Provider Obstetrics & Gynecology; PCP Internal Medicine; Visit Provider Obstetrics & Gynecology
DX: O60.03 Preterm labor without delivery, third trimester (principal); Z79.82 Long term (current) use of aspirin; Z11.59 Encounter for screening for other viral diseases; Z3A.32 32 weeks gestation of pregnancy
CPT/HCPCS: 36415; 86850; 86900; 86901; 96360; 96361; 96365; 96366; 96372; 99232; 99233; 99239; U0003; 85025; 87081; G0378; J0702; J2405; J3475

== ENCOUNTER 2020-02-29 20:49 | Outpatient (REF) | payer BC, SELFPAY ==
[2020-02-29 15:22] LABS: Fetal Fibronectin Negative (Negative)
== END 2020-02-29 21:09 ==
LOC: LBN 20:49
PROVIDERS: PCP Internal Medicine; Visit Provider Obstetrics & Gynecology
DX: O47.9 False labor, unspecified (principal)
CPT/HCPCS: 82731

== ENCOUNTER 2020-03-28 12:44 | Outpatient (REF) | payer BC, SELFPAY ==
[2020-03-28 14:13] LABS: *AMPHETAMINES SCREEN URINE Negative (Negative); *BARBITURATES SCREEN URINE Negative (Negative); *BENZODIAZEPINES SCREEN URINE Negative (Negative); Cannabinoids THC Negative (Negative); Cocaine Screen,Urine Negative (Negative); METHADONE URINE SCREEN Negative (Negative); OPIATES URINE SCREEN Negative (Negative)
[2020-03-28 14:14] LABS: Tricyclic Antidepressants Negative (Negative)
[2020-04-01 11:08] LABS: Buprenorphine Negative
== END 2020-03-28 13:04 ==
LOC: LBN 12:44
PROVIDERS: Obstetrics & Gynecology Gynecology; PCP Internal Medicine; Visit Provider Nurse Practitioner
DX: Z34.93 Encounter for supervision of normal pregnancy, unspecified, third trimester (principal)
CPT/HCPCS: 80307; 87081

== ENCOUNTER 2020-04-24 09:53 | Outpatient (CLI) | payer BC, SELFPAY ==
[2020-04-24 11:50] VITALS: BP 110/63; PULSE 90; TEMP 36.6
--- NOTE | 2020-04-24 12:42 | W.OBNST ---
Date of service: 04/24/20 Time of Service: 12:42 NST Evaluation Reason for NST Reasons for Nonstress Test: POSTDATES Gestational Age Gestational Age in Weeks and Days: 40 Weeks and 1Days Test and Monitor Explained Test/Monitor Explained: Test Explained Vital Signs Blood Pressure: 110/63 Pulse: 90 Temperature: 97.9 F NST Information Date on Monitor: 04/24/20 Time on Monitor: 11:50 Date off Monitor: 04/24/20 Time off Monitor: 12:10 Total Time on Monitor: 20 NST Interventions: None Contraction Frequency: rare NST Evaluation Patient States Movement: Present FHR Baseline: 135 Variability: Moderate 6-25 bpm Accelerations: 15x15 Decelerations: None NST Results: Reactive Note NST Note Note: Category 1 nonstress test. Cervical exam closed, 50%, posterior, firm. Will follow up on for NST. Possible induction next week if undelivered. NST Reviewed and Verified by: Shima Medrano
[2020-04-24 12:43] VITALS: BP 110/63; PULSE 90; TEMP 36.6
== END 2020-04-24 12:25 | disposition home or self-care (01) ==
LOC: BCD 09:54 → OBS 12:16
PROVIDERS: PCP Internal Medicine; Visit Provider Obstetrics & Gynecology
DX: O48.0 Post-term pregnancy (principal); Z3A.41 41 weeks gestation of pregnancy
CPT/HCPCS: 59025

== ENCOUNTER 2020-04-27 07:07 | Outpatient (CLI) | payer BC, SELFPAY ==
[2020-04-27 11:30] VITALS: BP 104/62; PULSE 77; TEMP 36.8
[2020-04-27 12:08] VITALS: BP 104/62; PULSE 77
--- NOTE | 2020-04-27 17:11 | W.OBNST ---
Date of service: 04/27/20 Time of Service: 17:14 NST Evaluation Reason for NST Reasons for Nonstress Test: POSTDATES Gestational Age Gestational Age in Weeks and Days: 40 Weeks and 4Days Test and Monitor Explained Test/Monitor Explained: Test Explained, Monitor Explained and Patient Verbalized Understanding Vital Signs Blood Pressure: 104/62 Pulse: 77 Temperature: 98.2 F NST Information Date on Monitor: 04/27/20 Time on Monitor: 11:54 NST Interventions: None NST Evaluation Patient States Movement: Present FHR Baseline: 140 Variability: Moderate 6-25 bpm Accelerations: 15x15 Decelerations: None NST Results: Reactive Note ZULAY (2 of 4 quadrants measured. ) Results of ZULAY: 10.3cm NST Note Note: Pt reports lots of Switchback Junior contractions. OK with admission 05/01/20 in PM for cervical ripening secondary to postdates. NST Reviewed and Verified by: Mone Vincent
[2020-04-27 17:14] VITALS: BP 104/62; PULSE 77; TEMP 36.8
--- NOTE | 2020-06-15 10:53 | W.OBNST ---
Date of service: 06/15/20 Time of Service: 10:53 NST Evaluation Reason for NST Reasons for Nonstress Test: POSTDATES Gestational Age Gestational Age in Weeks and Days: 41 Weeks and 1Days Test and Monitor Explained Test/Monitor Explained: Test Explained, Monitor Explained and Patient Verbalized Understanding Vital Signs Blood Pressure: 104/62 Pulse: 77 Temperature: 98.2 F NST Information Date on Monitor: 04/27/20 Time on Monitor: 11:54 NST Interventions: None NST Evaluation Patient States Movement: Present FHR Baseline: 140 Variability: Moderate 6-25 bpm Accelerations: 15x15 Decelerations: None NST Results: Reactive Note NST Note Note: Reactive NST. Pt will f/u in office regarding plans for postdates management. NST Reviewed and Verified by: Mone Vincent
[2020-06-15 10:54] VITALS: BP 104/62; PULSE 77; TEMP 36.8
== END 2020-04-27 12:40 ==
LOC: BCD 07:10 → OBS 11:46
PROVIDERS: PCP Internal Medicine; Visit Provider Obstetrics & Gynecology Gynecology
DX: O48.0 Post-term pregnancy (principal); Z3A.40 40 weeks gestation of pregnancy
CPT/HCPCS: 59025; 76815

== ENCOUNTER 2020-05-01 17:25 | Inpatient (IN) | payer BC, SELFPAY ==
[2020-05-01 17:44] VITALS: BP 112/67; PULSE 77; RESP 18; TEMP 36.6; O2SAT 98
[2020-05-01 18:14] LABS: HCT 34.6 % (36.0-46.0); HGB 11.9 g/dL (11.2-15.7); MCH 31.3 pg (27.0-33.0); MCHC 34.4 % (32.0-36.0); MCV 91.1 fL (80-95); MPV 12.7 fL (8.0-11.0); Platelet Count 166 10^3/uL (130-400); RDW 12.5 % (11.7-14.6); RDW-SD 41.4 fL; WBC 9.09 10^3/uL (4.4-10.8)
--- NOTE | 2020-05-01 18:29 | HPE_ITS ---
Date of service: 05/01/20 Time of Service: 18:29 Assessment and Plan Assessment and plan (1) Post-dates : Status: Acute Assessment and plan: Patient is a 25-year-old functional primip. Who is now at 41 weeks gestation. She did have a history of having contractions during this at approximately 30 weeks where she received magnesium sulfate for prophylaxis and tocolyse she had received 1 course of betamethasone. Her contractions ceased and she went on to the point that she is now postdates. She is here for day for cervical ripening, followed by subsequent Pitocin augmentation of labor. The risks and benefits of this were explained to the patient in full informed consent was obtained. She will have Ms. ca for cervical ripening followed by Pitocin augmentation of labor when her cervix is more favorable. She has a category 1 heart rate tracing OB-HPI Labor/Delivery History of Present Illness Reason for Visit: IOL POSTDATES Chief Complaint: Scheduled Induction of Labor Indication for Induction: Post Date. ТАТЬЯНА Calculator Estimated Delivery Date Method Current WG Current Estimate 04/23/20 LMP (Certain) 41w 1d Other Estimates 04/22/20 Ultrasound #1 41w 2d History of Present Expected Delivery Route/Plan - elects MD care FOB/ - Juliano Menchaca Varicella Non-Immune, pt accepts vaccination Specific Issues/Plan 1. low dose asa 2` to: nullip/mother w/ pre-e. Accepts rec. of low dose asa will initiate @ 12 weeks. 2. progesterone suppositories pv till [address] Bauer. 3. Declined all optional ap labs, declination signed al 4. Hx IBS and s/p cholecystectomy 2018 5. 28-week hematocrit 30%. Recommended patient begin daily supplemental iron. 04/05/20. Stopped Iron secondary to constipation. 6. Labia tenderness. No evidence of Bartholin's gland swelling. Review of Systems All systems reviewed & are unremarkable except as noted in HPI and below Constitutional Constitutional: Reports as per HPI, Denies fatigue, Denies headache(s) and Denies poor appetite Eyes Eyes: Reports system reviewed and no additional complaints, except as documented ENT Ears, Nose, Mouth, and Throat: Denies headache(s) Cardiovascular Cardiovascular: Reports system reviewed and no additional complaints, except as documented Respiratory Respiratory: Reports system reviewed and no additional complaints, except as documented Gastrointestinal Gastrointestinal: Reports system reviewed and no additional complaints, except as documented Genitourinary Genitourinary: Reports system reviewed and no additional complaints, except as documented Comments: Normal movement. No signs or symptoms of preeclampsia. No vaginal bleeding or loss of fluid. Occasional irregular contractions Musculoskeletal Musculoskeletal: Reports system reviewed and no additional complaints, except as documented Neurologic Neurologic: Reports system reviewed and no additional complaints, except as documented and Denies headache(s) Endocrine Endocrine: Denies fatigue PFSH Medical History Anxiety Asthma Cyst of Bartholin's gland Dysuria Migraine headache with aura Surgical History History of esophagogastroduodenoscopy (EGD) Hx of appendectomy Family History Mother Diverticulosis of colon with hemorrhage Hypertension w/ Asthma H/O: hysterectomy Father Heart disease COPD (chronic obstructive pulmonary disease) Aneurysm of heart Social History Smoking/Tobacco Use Status: Never Smoking risk assessment performed?: Yes Alcohol Intake: never Drug use: Never Substance use type: does not use Current gender identity: female Seatbelt use: always Do you feel safe at home: Yes Do you feel safe in your relationship?: Yes History History 2 Para 0 Hx # Term Pregnancies 0 Multiple births 0 Hx # Pregnancies 0 Ectopic pregnancies 0 AB induced 0 Hx Number of Living Children 0 AB spontaneous 1 Past Pregnancies Del. Date GA/Weeks # Outcome Route Wgt Sex Labor Lgth Anesthes ia Location Prov Complic 04/08/[address] Antonette mayberry Delivery Date: 04/08/19 Miscarriage at 8 with a D/C on 04/08/19 Belkis Rebolledo LPN Home Medications and Allergies Home Medications Medication Instructions Recorded Confirmed Type acetaminophen 500 mg capsule 1,000 mg PO Q4H PRN cap 03/23/19 04/19/20 History albuterol sulfate 90 mcg/actuation 2 puff IH Q4H PRN gm 03/23/19 04/19/20 History aerosol inhaler pantoprazole 20 mg tablet,delayed 20 mg PO BID tab 04/02/19 04/19/20 History release calcium carbonate 500 mg calcium 1,000 mg PO DAILY tab 08/20/19 04/19/20 History (1,250 mg) tablet prenat.vits,cierra,[id number] 1 tab PO DAILY 08/20/19 04/19/20 History aspirin 81 mg tablet,delayed 81 mg PO DAILY #90 tab 10/19/19 04/19/20 Rx release epinephrine 0.3 mg/0.3 mL 0.3 mg IM ONCE PRN 10/19/19 04/19/20 History injection, auto-injector promethazine 25 mg tablet 25 mg PO Q6H PRN #30 tab 02/04/20 04/19/20 Rx Allergies Allergy/AdvReac Type Severity Reaction Status Date / Time apple Allergy Verified 04/19/20 10:17 Cephalosporins Allergy Verified 04/19/20 10:17 egg Allergy Verified 04/19/20 10:17 gluten Allergy Verified 04/19/20 10:17 chico Allergy Verified 04/19/20 10:17 peach Allergy Verified 04/19/20 10:17 plum Allergy Verified 04/19/20 10:17 Sulfa (Sulfonamide Allergy Verified 04/19/20 10:17 Antibiotics) verapamil Allergy dizziness, Verified 04/19/20 10:17 headaches almonds Allergy Uncoded 04/19/20 10:17 mushrooms Allergy Uncoded 04/19/20 10:17 Exam Physical Exam Vital signs: Temp Pulse Resp BP Pulse Ox 97.9 F 77 18 112/67 98 05/01/20 17:44 05/01/20 17:44 05/01/20 17:44 05/01/20 17:44 05/01/20 17:44 Detailed Labor and Delivery Exam Martinez Score: Cervical Points Exam 0 1 2 3 Dilation Closed 1-2cm 3-4 cm 5-6cm Effacement 0-30% 40-50% 60-70% 80% Consistency Firm Medium Soft Station -3 -2 -1,0 +1,+2 Position Posterior Mid Anterior Fetus A Heart Rate Baseline: 140 Monitor Accelerations: 10 X 10 Monitor Decelerations: None Variability: Moderate (6-25 BPM) Presentation: Cephalic Categories: Category I Est. Weight: 7 lb Assessment Note: Category 1 heart rate tracing HEENT Exam HEENT Exam: Normal Neck Exam Neck Exam: Normal Respiratory Exam Respiratory Exam: Normal Cardiovascular Exam Cardiovascular Exam: Normal Abdominal Exam Abdominal Exam: Normal Exam Exam: Normal Back/Spine/Pelvis Exam Back Exam: Normal Pelvis Adequate: Yes Skin Exam Skin Exam: Normal Detailed Neurological Exam Neurological: Present alert and oriented X3 Psychiatric Exam Psychiatric Exam: Normal Additional findings Additional findings: Cervix fingertip, 60%, mid position, firm . Score calculation is 5 Results Results Group Beta Strep: Negative Blood Type: O+ Rubella Status: Immune Varicella Immunity: Nonimmune Abnormal Lab Findings: Abnormal Labs 05/01/20 18:00 RBC 3.80 L Hct 34.6 L MPV 12.7 H Risk Assessment Risk for Shoulder Dystocia Historical/Initial OB: NEGATIVE FOR: Pelvic Abnormality, Pre- BMI>30, Previous Shoulder Dystocia or Previous Macrosomia 40 Weeks: POSTIVE FOR: Post Dates Increased Risk?: No Date/Initial: 09/21/19 al Delivery Plan @ 40 wks: Labor induction Risk for Pre-Eclampsia Daily Dose ASA Indicated: No Date Initiated/Initials: 09/21/19 pt accepts rec. of low dose asa will start @ 12 weeks al. Yes, if one or more: POSTIVE FOR: APA Syndrome; NEGATIVE FOR: Hx Pre-E/Gest HTN, Chronic HTN, Multiple Gestation, Pre- gestational DM, Renal Disease or Systemic Lupus Yes, if 2 or more: POSITIVE FOR: Nulliparity and Mother/Sister w/ Pre-E (pt states her mother had b/p issues w/ her first of 3 pregnancies.); NEGATIVE FOR: Age>= 35 yrs, >10yr btwn pregnancies, BMI>30, ethinicty or Previous IUGR Risk for Post- Hemorrhage Initial: NEGATIVE FOR: Multiple Gestation, Previous PPH, Known Clotting Deficiency, Grand Multiparity or Anticoagulation At Risk?: No Counseled re: Active Management: Yes Date/Initials: LISA 05/01/2020 Risks Reviewed Risks Reviewed Upon Admission: Yes
[2020-05-01] MEDS: miSOPROStol 25 MCG TAB PO ×2 (18:55→23:09)
[2020-05-01 20:57] VITALS: BP 110/62; PULSE 70
[2020-05-01] MEDS: Zolpidem 5 MG TAB 10 MG PO (21:37)
[2020-05-01 22:38] VITALS: BP 107/55; PULSE 76
[2020-05-01 23:43] VITALS: BP 107/58; PULSE 76; RESP 18
[2020-05-02] VITALS (32 sets, daily range): BP systolic 95–135; BP diastolic 52–77; PULSE 63–103; RESP 16–20; TEMP 36.6–36.9; O2SAT 95–100
[2020-05-02] MEDS: miSOPROStol 25 MCG TAB PO ×2 (03:12→09:06)
--- NOTE | 2020-05-02 08:12 | W.PM.OBNL1 ---
Date of service: 05/02/20 Time of Service: 08:12 Informed Consent Informed Consent: Induction of Labor Pelvic Exam Dilation: 1 Effacement (%): 50 station: -2 Cervix Position: mid Consistency: firm Vaginal Exam Presentation: Cephalic Contractions Intensity: Strong Fetus A Heart Rate Baseline: 140 Variability: Moderate (6-25 BPM) Categories: Category I FHR Rhythm: Regular Accelerations: Present Decelerations: None Assessment and Plan Assessment and plan (1) Post-dates : Status: Acute Assessment and plan: Continue cervical ripening. Anticipate vaginal delivery Objective Abnormal lab results 05/01/20 Range/Units 18:00 RBC 3.80 L (3.93-5.22) 10^6/uL Hct 34.6 L (36.0-46.0) % MPV 12.7 H (8.0-11.0) fL Temp Pulse Resp BP Pulse Ox 97.9 F 71 16 106/65 98 05/02/20 07:38 05/02/20 07:38 05/02/20 07:38 05/02/20 07:38 05/01/20 17:44 Laboratory Results WBC 9.09 10^3/uL (4.4-10.8) 05/01/20 18:00 RBC 3.80 10^6/uL (3.93-5.22) L 05/01/20 18:00 Hgb 11.9 g/dL (11.2-15.7) 05/01/20 18:00 Hct 34.6 % (36.0-46.0) L 05/01/20 18:00 MCV 91.1 fL (80-95) 05/01/20 18:00 MCH 31.3 pg (27.0-33.0) 05/01/20 18:00 MCHC 34.4 % (32.0-36.0) 05/01/20 18:00 RDW 12.5 % (11.7-14.6) 05/01/20 18:00 Plt Count 166 10^3/uL (130-400) 05/01/20 18:00 MPV 12.7 fL (8.0-11.0) H 05/01/20 18:00 Patient ABO/Rh O Positive 05/01/20 18:00 Antibody Screen Negative 05/01/20 18:00 Subjective Patient Reports: No new Complaints Interval history since last seen: Some nausea after PO cytocec Results Hemoglobin/Hematocrit: Hgb 11.9 g/dL (11.2-15.7) 05/01/20 18:00 Hct 34.6 % (36.0-46.0) L 05/01/20 18:00 Abnormal Lab Findings: Abnormal Labs 05/01/20 18:00 RBC 3.80 L Hct 34.6 L MPV 12.7 H Procedure Procedures: Cervical Ripening
--- NOTE | 2020-05-02 09:08 | W.PM.OBNL1 ---
Date of service: 05/02/20 Time of Service: 09:08 Informed Consent Informed Consent: Induction of Labor Pelvic Exam Dilation: 1 Effacement (%): 75 station: +1 Position: OA Cervix Position: mid Consistency: medium BISHOPS Score(Cervical Ripeness Score): 6 Vaginal Exam Presentation: Cephalic Pooling: Negative Contractions Monitor Mode: External Contraction Frequency(min): irregular Contraction Duration(sec): 50 Intensity: Mild/Moderate Fetus A Monitor: External (US) Heart Rate Baseline: 150 Presentation: Cephalic Variability: Moderate (6-25 BPM) Categories: Category I FHR Rhythm: Regular Characteristics: Normal Accelerations: Present Decelerations: None Amniotic Membrane Status: Intact Assessment and Plan Assessment and plan (1) Post-dates : Status: Acute Assessment and plan: introduced myself to pt and her partner Juliano. I recommended continuing administration of Misoprostil and to use vaginal route going forward. I briefly discussed simpson bulb for cervical ripening if another route chosen. (2) Encounter for induction of labor: Status: Acute Objective Abnormal lab results 05/01/20 Range/Units 18:00 RBC 3.80 L (3.93-5.22) 10^6/uL Hct 34.6 L (36.0-46.0) % MPV 12.7 H (8.0-11.0) fL Temp Pulse Resp BP Pulse Ox 97.9 F 71 16 106/65 98 05/02/20 07:38 05/02/20 07:38 05/02/20 07:38 05/02/20 07:38 05/01/20 17:44 Laboratory Results WBC 9.09 10^3/uL (4.4-10.8) 05/01/20 18:00 RBC 3.80 10^6/uL (3.93-5.22) L 05/01/20 18:00 Hgb 11.9 g/dL (11.2-15.7) 05/01/20 18:00 Hct 34.6 % (36.0-46.0) L 05/01/20 18:00 MCV 91.1 fL (80-95) 05/01/20 18:00 MCH 31.3 pg (27.0-33.0) 05/01/20 18:00 MCHC 34.4 % (32.0-36.0) 05/01/20 18:00 RDW 12.5 % (11.7-14.6) 05/01/20 18:00 Plt Count 166 10^3/uL (130-400) 05/01/20 18:00 MPV 12.7 fL (8.0-11.0) H 05/01/20 18:00 Patient ABO/Rh O Positive 05/01/20 18:00 Antibody Screen Negative 05/01/20 18:00 Subjective Patient Reports: No new Complaints Interval history since last seen: Patient received oral misoprostol overnight. She reported contractions intermittently during the night. She is experiencing nausea that she believes is secondary to a medicine for insomnia. She is agreeable to continue the misoprostol cervical ripening. We will proceed with vaginal doses today. Interventions Other (no interventions.) Results Hemoglobin/Hematocrit: Hgb 11.9 g/dL (11.2-15.7) 05/01/20 18:00 Hct 34.6 % (36.0-46.0) L 05/01/20 18:00 Abnormal Lab Findings: Abnormal Labs 05/01/20 18:00 RBC 3.80 L Hct 34.6 L MPV 12.7 H Procedure Procedures: Cervical Ripening Cervical Ripening: Misoprostol (25mcg administered at ~0900)
--- NOTE | 2020-05-02 11:59 | W.PM.OBNL1 ---
Date of service: 05/02/20 Time of Service: 11:59 Informed Consent Informed Consent: Induction of Labor Pelvic Exam Comments: Sterile vaginal exam deferred. Will recheck cervix approximately 1 to 2 hours and consider AROM if centimeters.. Contractions Contraction Frequency(min): 2-3 Contraction Duration(sec): 60 Intensity: Moderate Fetus A Monitor: Doppler Assessment and Plan Assessment and plan (1) Encounter for induction of labor: Status: Acute Assessment and plan: Patient appears more comfortable approximately 4 hours after 25 mcg dose of his proximal given vaginally. We will recheck cervix in the near future to determine if AROM possible. Objective Abnormal lab results 05/01/20 Range/Units 18:00 RBC 3.80 L (3.93-5.22) 10^6/uL Hct 34.6 L (36.0-46.0) % MPV 12.7 H (8.0-11.0) fL Temp Pulse Resp BP Pulse Ox 97.9 F 71 16 106/65 98 05/02/20 07:38 05/02/20 07:38 05/02/20 07:38 05/02/20 07:38 05/01/20 17:44 Laboratory Results WBC 9.09 10^3/uL (4.4-10.8) 05/01/20 18:00 RBC 3.80 10^6/uL (3.93-5.22) L 05/01/20 18:00 Hgb 11.9 g/dL (11.2-15.7) 05/01/20 18:00 Hct 34.6 % (36.0-46.0) L 05/01/20 18:00 MCV 91.1 fL (80-95) 05/01/20 18:00 MCH 31.3 pg (27.0-33.0) 05/01/20 18:00 MCHC 34.4 % (32.0-36.0) 05/01/20 18:00 RDW 12.5 % (11.7-14.6) 05/01/20 18:00 Plt Count 166 10^3/uL (130-400) 05/01/20 18:00 MPV 12.7 fL (8.0-11.0) H 05/01/20 18:00 Patient ABO/Rh O Positive 05/01/20 18:00 Antibody Screen Negative 05/01/20 18:00 Subjective Patient Reports: New Complaints (increasingly uncomfortable.) Interval history since last seen: Patient reports increase in intensity and frequency of uterine contractions. Requesting to use nitrous during oxide for labor analgesia during contractions. Interventions Pain Management Interventions: Nitrous Oxide (Patient instructed in use of nitrous oxide and has been using it during contractions.) , Self administered without problems . Results Hemoglobin/Hematocrit: Hgb 11.9 g/dL (11.2-15.7) 05/01/20 18:00 Hct 34.6 % (36.0-46.0) L 05/01/20 18:00 Abnormal Lab Findings: Abnormal Labs 05/01/20 18:00 RBC 3.80 L Hct 34.6 L MPV 12.7 H Procedure Procedures: Cervical Ripening
--- NOTE | 2020-05-02 13:06 | W.PM.OBNL1 ---
Date of service: 05/02/20 Time of Service: 13:06 Informed Consent Informed Consent: Induction of Labor Pelvic Exam Dilation: 2 Effacement (%): 75 station: +2 Position: OA Cervix Position: mid Consistency: medium Vaginal Exam Presentation: Cephalic Comments: AROM with return of clear amniotic fluid Contractions Monitor Mode: External Contraction Frequency(min): 1-2min Contraction Duration(sec): 45-60 Fetus A Monitor: External (US) Heart Rate Baseline: 145 Presentation: Cephalic Variability: Moderate (6-25 BPM) Categories: Category I FHR Rhythm: Regular Characteristics: Normal Accelerations: 15 X 15 Decelerations: None Amniotic Membrane Status: Ruptured Rupture Method: Artifical Amniotic Fluid: Clear Amount: small Date of Membrane Rupture: 05/02/20 Time of Membrane Rupture: 13:00 Assessment Note: reassuring assessment. Assessment and Plan Assessment and plan (1) Encounter for induction of labor: Status: Acute Assessment and plan: Pt increasingly uncomfortable. Does not feel that she gets much relief between contractions. FHR reassuring. Pt's PO intake limited during the day. I have recommended beginning IV fluids - 500cc bolus of LR. Will continue to follow contraction pattern after sufficient IV hydration. (2) Post-dates : Status: Acute Qualifiers: Post-term type: 40-42 weeks gestation Qualified Code(s): O48.0 - Post-term Objective Abnormal lab results 05/01/20 Range/Units 18:00 RBC 3.80 L (3.93-5.22) 10^6/uL Hct 34.6 L (36.0-46.0) % MPV 12.7 H (8.0-11.0) fL Temp Pulse Resp BP Pulse Ox 97.9 F 71 16 106/65 98 05/02/20 07:38 05/02/20 07:38 05/02/20 07:38 05/02/20 07:38 05/01/20 17:44 Laboratory Results WBC 9.09 10^3/uL (4.4-10.8) 05/01/20 18:00 RBC 3.80 10^6/uL (3.93-5.22) L 05/01/20 18:00 Hgb 11.9 g/dL (11.2-15.7) 05/01/20 18:00 Hct 34.6 % (36.0-46.0) L 05/01/20 18:00 MCV 91.1 fL (80-95) 05/01/20 18:00 MCH 31.3 pg (27.0-33.0) 05/01/20 18:00 MCHC 34.4 % (32.0-36.0) 05/01/20 18:00 RDW 12.5 % (11.7-14.6) 05/01/20 18:00 Plt Count 166 10^3/uL (130-400) 05/01/20 18:00 MPV 12.7 fL (8.0-11.0) H 05/01/20 18:00 Patient ABO/Rh O Positive 05/01/20 18:00 Antibody Screen Negative 05/01/20 18:00 Vital Signs Reviewed: Yes Subjective Interval history since last seen: Continues to experience lower pelvic pressure with contractions. Using Nitrous Oxide during contractions. Interventions Pain Management Interventions: Epidural (I have recommended epidural for labor analgesia. IV fluid bolus initiated and Anesthesia provider notified.) . Results Hemoglobin/Hematocrit: Hgb 11.9 g/dL (11.2-15.7) 05/01/20 18:00 Hct 34.6 % (36.0-46.0) L 05/01/20 18:00 Abnormal Lab Findings: Abnormal Labs 05/01/20 18:00 RBC 3.80 L Hct 34.6 L MPV 12.7 H Procedure Procedures: Cervical Ripening Cervical Ripening: Misoprostol (last dose at 0900 this am)
[2020-05-02] MEDS: FentaNYL/ROPIvacaine 2 mcg/ml and 0.1% 200 ML CADD Cassette EP (13:30)
--- NOTE | 2020-05-02 14:29 | W.PM.OBNL1 ---
Date of service: 05/02/20 Time of Service: 14:29 Informed Consent Informed Consent: Induction of Labor Contractions Monitor Mode: External Contraction Frequency(min): Every 4 Contraction Duration(sec): 60 Intensity: Moderate Fetus A Monitor: External (US) Heart Rate Baseline: 150 Variability: Moderate (6-25 BPM) FHR Rhythm: Regular Decelerations: Late (Brief interval late decelerations with patient on her back. Resolved with change of position to right side) Amniotic Membrane Status: Ruptured Assessment Note: No evidence of late decelerations once position change was performed. We will continue to follow. Objective Abnormal lab results 05/01/20 Range/Units 18:00 RBC 3.80 L (3.93-5.22) 10^6/uL Hct 34.6 L (36.0-46.0) % MPV 12.7 H (8.0-11.0) fL Temp Pulse Resp BP Pulse Ox 98.2 F 75 16 108/70 99 05/02/20 13:30 05/02/20 14:16 05/02/20 13:30 05/02/20 14:16 05/02/20 14:16 Laboratory Results WBC 9.09 10^3/uL (4.4-10.8) 05/01/20 18:00 RBC 3.80 10^6/uL (3.93-5.22) L 05/01/20 18:00 Hgb 11.9 g/dL (11.2-15.7) 05/01/20 18:00 Hct 34.6 % (36.0-46.0) L 05/01/20 18:00 MCV 91.1 fL (80-95) 05/01/20 18:00 MCH 31.3 pg (27.0-33.0) 05/01/20 18:00 MCHC 34.4 % (32.0-36.0) 05/01/20 18:00 RDW 12.5 % (11.7-14.6) 05/01/20 18:00 Plt Count 166 10^3/uL (130-400) 05/01/20 18:00 MPV 12.7 fL (8.0-11.0) H 05/01/20 18:00 Patient ABO/Rh O Positive 05/01/20 18:00 Antibody Screen Negative 05/01/20 18:00 Subjective Interval history since last seen: Patient comfortable with epidural in place Interventions Other (Continue with present management recheck cervix in approximately 1 hour) Results Hemoglobin/Hematocrit: Hgb 11.9 g/dL (11.2-15.7) 05/01/20 18:00 Hct 34.6 % (36.0-46.0) L 05/01/20 18:00 Abnormal Lab Findings: Abnormal Labs 05/01/20 18:00 RBC 3.80 L Hct 34.6 L MPV 12.7 H
--- NOTE | 2020-05-02 15:34 | W.PM.OBNL1 ---
Date of service: 05/02/20 Time of Service: 15:34 Informed Consent Informed Consent: Induction of Labor Pelvic Exam Dilation: 4 Effacement (%): 100 station: +1 Position: OA Cervix Position: mid Consistency: soft Vaginal Exam Presentation: Cephalic Contractions Monitor Mode: External Contraction Frequency(min): 2-4min Contraction Duration(sec): 50-60 Intensity: Moderate Fetus A Monitor: External (US) (changed to FSE while pt in knee chest position) Heart Rate Baseline: 145 Presentation: Cephalic Variability: Moderate (6-25 BPM) Categories: Category II FHR Rhythm: Regular Characteristics: Normal Accelerations: 15 X 15 Decelerations: Late (pt ) Recurrence: Recurrent (pt's position changed to hands and knees. FSE placed. + response to FSS with FSE) Amniotic Membrane Status: Ruptured Assessment Note: Recurrent late decels after previous SVE. Pt on back. Late decels resolved when in hands and knees. FSE placed and pt returned to supine position. Another late decel noted then FHR returned to Category1. Will continue to follow closely. Objective Abnormal lab results 05/01/20 Range/Units 18:00 RBC 3.80 L (3.93-5.22) 10^6/uL Hct 34.6 L (36.0-46.0) % MPV 12.7 H (8.0-11.0) fL Temp Pulse Resp BP Pulse Ox 98.2 F 93 H 16 108/70 95 05/02/20 13:30 05/02/20 15:27 05/02/20 13:30 05/02/20 14:16 05/02/20 15:27 Laboratory Results WBC 9.09 10^3/uL (4.4-10.8) 05/01/20 18:00 RBC 3.80 10^6/uL (3.93-5.22) L 05/01/20 18:00 Hgb 11.9 g/dL (11.2-15.7) 05/01/20 18:00 Hct 34.6 % (36.0-46.0) L 05/01/20 18:00 MCV 91.1 fL (80-95) 05/01/20 18:00 MCH 31.3 pg (27.0-33.0) 05/01/20 18:00 MCHC 34.4 % (32.0-36.0) 05/01/20 18:00 RDW 12.5 % (11.7-14.6) 05/01/20 18:00 Plt Count 166 10^3/uL (130-400) 05/01/20 18:00 MPV 12.7 fL (8.0-11.0) H 05/01/20 18:00 Patient ABO/Rh O Positive 05/01/20 18:00 Antibody Screen Negative 05/01/20 18:00 Subjective Patient Reports: No new Complaints Interventions Pain Management Interventions: Epidural (Pt comfortable. Feeling rectal pressure) . Results Hemoglobin/Hematocrit: Hgb 11.9 g/dL (11.2-15.7) 05/01/20 18:00 Hct 34.6 % (36.0-46.0) L 05/01/20 18:00 Abnormal Lab Findings: Abnormal Labs 05/01/20 18:00 RBC 3.80 L Hct 34.6 L MPV 12.7 H
[2020-05-02] MEDS: Ondansetron 4 MG/2 ML VIAL IVP (16:37)
[2020-05-02] MEDS: Normal Saline Flush 10 ML SYR IVP ×2 (16:40→21:00)
--- NOTE | 2020-05-02 17:09 | W.PM.OBNL1 ---
Date of service: 05/02/20 Time of Service: 17:10 Informed Consent Informed Consent: Induction of Labor Pelvic Exam Dilation: 4 Effacement (%): 100 station: +1 Cervix Position: mid Vaginal Exam Presentation: Cephalic (moulding present. No appreciable descent from previous exams) Contractions Monitor Mode: External Contraction Frequency(min): 2-3 Contraction Duration(sec): 60 IUPC resting tone (mmHg): 30 IUPC peak pressure (mmHg): 50 Fetus A Monitor: Internal (FSE) Heart Rate Baseline: 150 Presentation: Cephalic Variability: Moderate (6-25 BPM) Categories: Category II FHR Rhythm: Regular Characteristics: Normal Accelerations: 15 X 15 Decelerations: Late (immediately after IUPC inserted. resolved spontaneously) Recurrence: Intermittent Amniotic Membrane Status: Ruptured Assessment and Plan Assessment and plan (1) Encounter for induction of labor: Status: Acute Objective Abnormal lab results 05/01/20 Range/Units 18:00 RBC 3.80 L (3.93-5.22) 10^6/uL Hct 34.6 L (36.0-46.0) % MPV 12.7 H (8.0-11.0) fL Temp Pulse Resp BP Pulse Ox 98.1 F 75 20 104/65 95 05/02/20 16:15 05/02/20 16:15 05/02/20 16:15 05/02/20 16:15 05/02/20 15:27 Laboratory Results WBC 9.09 10^3/uL (4.4-10.8) 05/01/20 18:00 RBC 3.80 10^6/uL (3.93-5.22) L 05/01/20 18:00 Hgb 11.9 g/dL (11.2-15.7) 05/01/20 18:00 Hct 34.6 % (36.0-46.0) L 05/01/20 18:00 MCV 91.1 fL (80-95) 05/01/20 18:00 MCH 31.3 pg (27.0-33.0) 05/01/20 18:00 MCHC 34.4 % (32.0-36.0) 05/01/20 18:00 RDW 12.5 % (11.7-14.6) 05/01/20 18:00 Plt Count 166 10^3/uL (130-400) 05/01/20 18:00 MPV 12.7 fL (8.0-11.0) H 05/01/20 18:00 Patient ABO/Rh O Positive 05/01/20 18:00 Antibody Screen Negative 05/01/20 18:00 Subjective Patient Reports: No new Complaints Interval history since last seen: Pt continues comfortable with epidural. Was OOB and sat of commode for ~ 45min. After returning to bed FSE fell off. Interventions Pain Management Interventions: Epidural (continues comfortable.) . Results Hemoglobin/Hematocrit: Hgb 11.9 g/dL (11.2-15.7) 05/01/20 18:00 Hct 34.6 % (36.0-46.0) L 05/01/20 18:00 Abnormal Lab Findings: Abnormal Labs 05/01/20 18:00 RBC 3.80 L Hct 34.6 L MPV 12.7 H Procedure Procedures: Scalp Electrode Placement , indication for electrode: accurate recording of FHR. / IUPC Insertion , indication for IUPC: need to assess adequacy of contractions. No appreciable descent or cervical change for several hours.
--- NOTE | 2020-05-02 19:40 | W.PM.OBNL1 ---
Date of service: 05/02/20 Time of Service: 19:40 Informed Consent Informed Consent: Induction of Labor Pelvic Exam Dilation: 4 Effacement (%): 4 station: +1 (swelling at 2 o'clock position on cervix. change from previous exam.) Cervix Position: mid Consistency: soft Vaginal Exam Presentation: Cephalic Contractions Contraction Frequency(min): 2 Contraction Duration(sec): 50 IUPC resting tone (mmHg): 20 IUPC peak pressure (mmHg): 80 IUPC Five [place] units: 200 Fetus A Monitor: Internal (FSE) Presentation: Cephalic Variability: Moderate (6-25 BPM) Categories: Category II FHR Rhythm: Regular Accelerations: 15 X 15 Decelerations: Late (intermittent) Assessment Note: After reexamining the patient cervix I spoke to the patient and her about my concern regarding lack of progress and possible obstructive labor. The plan is to have her return on her left side for the next hour to see if the edema of the cervix resolves and follow heart rate pattern. If there is no appreciable change in either cervical exam or improvement in the heart rate pattern from the occasional late decelerations will perform a delivery Objective Temp Pulse Resp BP Pulse Ox 98.1 F 65 20 119/65 95 05/02/20 16:15 05/02/20 18:13 05/02/20 16:15 05/02/20 18:13 05/02/20 15:27 Laboratory Results WBC 9.09 10^3/uL (4.4-10.8) 05/01/20 18:00 RBC 3.80 10^6/uL (3.93-5.22) L 05/01/20 18:00 Hgb 11.9 g/dL (11.2-15.7) 05/01/20 18:00 Hct 34.6 % (36.0-46.0) L 05/01/20 18:00 MCV 91.1 fL (80-95) 05/01/20 18:00 MCH 31.3 pg (27.0-33.0) 05/01/20 18:00 MCHC 34.4 % (32.0-36.0) 05/01/20 18:00 RDW 12.5 % (11.7-14.6) 05/01/20 18:00 Plt Count 166 10^3/uL (130-400) 05/01/20 18:00 MPV 12.7 fL (8.0-11.0) H 05/01/20 18:00 Patient ABO/Rh O Positive 05/01/20 18:00 Antibody Screen Negative 05/01/20 18:00 Results Hemoglobin/Hematocrit: Hgb 11.9 g/dL (11.2-15.7) 05/01/20 18:00 Hct 34.6 % (36.0-46.0) L 05/01/20 18:00 Abnormal Lab Findings: Abnormal Labs 05/01/20 18:00 RBC 3.80 L Hct 34.6 L MPV 12.7 H
--- NOTE | 2020-05-02 20:54 | W.PM.OBNL1 ---
Date of service: 05/02/20 Time of Service: 20:54 Informed Consent Informed Consent: Induction of Labor Pelvic Exam Dilation: 3 station: +1 Consistency: soft (edematous from 12 to 6 o'clock) Vaginal Exam Presentation: Cephalic Comments: Arrest of dilation. I have counseled pt and sheila that vaginal delivery is not possible and have advised to undergo delivery Contractions Contraction Frequency(min): 2-3 Fetus A Heart Rate Baseline: 140 Categories: Category II (ocassional late decels with return to category 1 strip.) CategoryII Plan of Care: Reassess (I have decided to proceed with urgent, unscheduled c/s. Not emergency. Currently status is reassuring) FHR Rhythm: Regular Accelerations: 15 X 15 Decelerations: Late (ocassional and resolve spontaneously) Recurrence: Intermittent Amniotic Membrane Status: Ruptured Assessment and Plan Assessment and plan (1) Arrested active phase of labor: Status: Acute Assessment and plan: Patient has consented to a primary delivery. The risks of the procedure were discussed with patient and her . I discussed the risk of infection damage to surrounding structures including bowel bladder and ureters. Also discussed the risk of bleeding. Her questions were answered. Patient has a distant history of a allergic reaction to a cephalosporin. She describes her rash as a child. No history of breathing difficulties with administration of cephalosporin. Objective Temp Pulse Resp BP Pulse Ox 98.1 F 79 20 95/52 L 95 05/02/20 16:15 05/02/20 19:50 05/02/20 16:15 05/02/20 19:50 05/02/20 15:27 Laboratory Results WBC 9.09 10^3/uL (4.4-10.8) 05/01/20 18:00 RBC 3.80 10^6/uL (3.93-5.22) L 05/01/20 18:00 Hgb 11.9 g/dL (11.2-15.7) 05/01/20 18:00 Hct 34.6 % (36.0-46.0) L 05/01/20 18:00 MCV 91.1 fL (80-95) 05/01/20 18:00 MCH 31.3 pg (27.0-33.0) 05/01/20 18:00 MCHC 34.4 % (32.0-36.0) 05/01/20 18:00 RDW 12.5 % (11.7-14.6) 05/01/20 18:00 Plt Count 166 10^3/uL (130-400) 05/01/20 18:00 MPV 12.7 fL (8.0-11.0) H 05/01/20 18:00 Patient ABO/Rh O Positive 05/01/20 18:00 Antibody Screen Negative 05/01/20 18:00 Subjective Patient Reports: No new Complaints Interventions Assisted Delivery Results Hemoglobin/Hematocrit: Hgb 11.9 g/dL (11.2-15.7) 05/01/20 18:00 Hct 34.6 % (36.0-46.0) L 05/01/20 18:00 Abnormal Lab Findings: Abnormal Labs 05/01/20 18:00 RBC 3.80 L Hct 34.6 L MPV 12.7 H
[2020-05-02] MEDS: Sodium Citrate 30 ML CUP PO (20:56)
[2020-05-02] MEDS: Azithromycin 500 MG VIAL (20:57)
[2020-05-02] MEDS: AZITHROMYCIN 500 MG in Normal Saline 250 ML 250 MG IVPB (21:13)
[2020-05-02] MEDS: Lidocaine 2% Pres-Free 5 ML VIAL (21:30)
[2020-05-02] MEDS: ceFAZolin 2,000 MG in Normal Saline 100 ML 200 MG IVPB (21:42)
[2020-05-02] MEDS: Oxytocin 10 UNITS/ML VIAL 12 UNITS IV (21:50)
--- NOTE | 2020-05-02 22:41 | W.PM.OP ---
Date of service: 05/02/20 Time of Service: 22:41 Operative Note Operative Note DATE OF PROCEDURE: 05/02/20 PRE-OP DIAGNOSIS: Arrest of dilation, arrest of descent at 41w1d EGA POST-OP DIAGNOSIS: same PROCEDURE: Unscheduled low transverse delivery SURGEON: Mone Vincent SOFTWARE ENGINEER WEB SERVICES: Lakeisha Skelton ANESTHESIA: epidural ESTIMATED BLOOD LOSS: 700 PATHOLOGY: other (Cord blood to lab) COMPLICATIONS: None Patient was transported to: floor Patient's condition: stable Indications: 25-year-old female admitted 21 weeks estimated stational age for post dates induction of labor. Patient had misoprostol for cervical ripening and spontaneous labor. Maximum dilatation achieved 3 cm despite adequate contractions. Findings: Viable female in the OA position with clear amniotic fluid. Weight . Apgars. Normal uterus and adnexa. Parents plan to name her Maral Procedure Description: Patient was taken to the operating room where she was placed in the dorsal supine position and her previously placed epidural was redosed. A Malik catheter was placed to gravity drainage. SCDs were in place. She received 2 g of Ancef IV prior to skin incision following 500mg of IV Azithromycin. A vaginal prep was performed with Betadine and her abdomen was then preped and draped in the usual fashion. After an adequate level of anesthesia was obtained and timeout performed a scalpel was used to incise the skin in a transverse fashion 2cm superior to the symphysis pubis. The underlying subcutaneous tissue was dissected with Bovie electrocautery to the level of the rectus fascia. The rectus fascia was incised and the incision was extended laterally with curved Ordaz scissors. Clementine clamps were applied to the superior aspect of the rectus fascia and the rectus fascia was dissected off of the underlying rectus muscles with combination of blunt technique and Bovie electrocautery. A similar technique was carried out on the inferior aspect of the same incision. Rectus muscles were in the midline and the peritoneum was entered bluntly and the incision was extended laterally using blunt technique. An Pedro retractor was then placed into the abdomen and secured in place. The vesicouterine peritoneum over the lower uterine segment was incised and the incision extended laterally with the bladder flap created digitally. Scalpel was used to incise the lower uterine segment in transverse fashion and upon entry into the uterine cavity the uterine incision was extended laterally The intact amniotic sac was then ruptured with light meconium stained fluid noted. A single gloved hand was placed into the uterus and the 's head was delivered atraumatically followed by trunk and extremities. The cord was doubly clamped and cut and the handed off to waiting pediatric team. The placenta was delivered intact with a combination of gentle cord traction and fundal massage. Cord blood was collected. The uterus was not exteriorized. The uterine cavity was cleared of clots and debris using a laparotomy sponge. The uterine incision was then reapproximated with a running lock suture of 0 Vicryl followed by a second imbricated suture of 0 Vicryl. An interrupted suture of 0 Vicryl was placed at the right lateral margin to control a small amount of oozing. The incision was hemostatic at the completion of the procedure. The paracolic gutters were cleared of any clots and debris. Final inspection showed the anterior abdominal wall in the cul-de-sac to be hemostatic. The visceral peritoneum was reapproximated with a running suture of 2-0 Vicryl followed by closure of the rectus fascia with 0 Vicryl beginning at the lateral margins and overlapping in the midline. The subcutaneous tissue was irrigated with normal saline was then reapproximated with a running suture of 2-0 Vicryl. The skin incision was closed with a 4-0 Vicryl suture in a subcuticular fashion. The skin was then sealed with skin glue and the uterus was massaged for any remaining clots and debris. The patient was then transported to recovery in stable condition. All sponge lap needle counts are correct x2.
[2020-05-02] MEDS: Ketorolac 30 MG/ML VIAL IVP (23:49)
[2020-05-03] VITALS (11 sets, daily range): BP systolic 96–125; BP diastolic 60–78; PULSE 61–85; RESP 16–99; TEMP 36.6–37; O2SAT 96–100
[2020-05-03] MEDS: Ketorolac 30 MG/ML VIAL IVP ×3 (05:14→16:09)
[2020-05-03 06:37] LABS: Abs Immature Grans 0.06 10^3/uL (0.0-0.06); Absolute Basophil Count 0.03 10^3/uL (0.0-0.2); Absolute Eosinophil Count 0.03 10^3/uL (0.0-0.7); Absolute Lymphocyte Count 1.42 10^3/uL (1.2-3.4); Absolute Monocyte Count 0.79 10^3/uL (0.1-0.8); Basophils % 0.2; Eosinophils % 0.2; HCT 31.2 % (36.0-46.0); HGB 10.5 g/dL (11.2-15.7); Immature Grans % 0.4; Lymphocytes % 10.1; MCH 31.3 pg (27.0-33.0); MCHC 33.7 % (32.0-36.0); MCV 92.9 fL (80-95); MPV 12.3 fL (8.0-11.0); Monocytes % 5.6; Neutrophils % 83.5; Nucleated RBC 0 %; Platelet Count 138 10^3/uL (130-400); RBC 3.36 10^6/uL (3.93-5.22); RDW 12.7 % (11.7-14.6); RDW-SD 43.6 fL; WBC 14.04 10^3/uL (4.4-10.8)
[2020-05-03 06:40] LABS: Absolute Neutrophil Count 11.72 10^3/uL (1.2-6.7)
[2020-05-03] MEDS: Acetaminophen 325 MG TAB 650 MG PO ×2 (08:33→16:08)
[2020-05-03 08:50] LABS: COVID-19 RT-PCR UVMMC Result Negative (Negative)
[2020-05-03] MEDS: Normal Saline Flush 10 ML SYR IVP ×2 (10:51→16:09)
[2020-05-03] MEDS: Pantoprazole 20 MG TABCR PO (20:25)
[2020-05-03] MEDS: Ibuprofen 600 MG TAB PO (22:00)
[2020-05-04] MEDS: Acetaminophen 325 MG TAB 650 MG PO (01:25)
[2020-05-04] MEDS: Ibuprofen 600 MG TAB PO (04:15)
[2020-05-04 07:30] VITALS: BP 110/75; PULSE 61; RESP 14; TEMP 36.6
--- NOTE | 2020-05-04 09:09 | PDOC.DSDIS_ITS ---
Discharge Plan Disposition Patient Disposition: HOME Condition: Good Discharge Details Reason For Visit: IOL POSTDATES Admit Date/Time: 05/01/20 17:25 Admit Provider: Shima Medrano Attending Provider: Shima Medrano Primary Care Provider: Krys Bey [facility] Course Hospital Course: Patient is a 25-year-old G2 now P1 female admitted at 41 weeks estimated gestational age for postdates induction of labor. She underwent cervical ripening with misoprostol and eventually had spontaneous labor. Maximum cervical dilatation 3 cm despite adequate contractions. surveillance was reassuring during labor process. She underwent a primary delivery on 05/02/2020 with delivery of a health the female infant named Maral. Patient was discharged home on post op day 2 successfully breast-feeding. Plan is to have her follow-up in approximately 2 weeks for incision check. Home Meds and New Rx's Prescriptions: No Action prenat.vits,cierra,[id number] Tablet 1 tab PO DAILY RF: 0 calcium carbonate [Calcium 500] 500 mg calcium (1,250 mg) tablet 1,000 mg PO DAILY RF: 0 promethazine 25 mg tablet 25 mg PO Q6H PRN (Reason: nausea and vomiting) Qty: 30 RF: 1 acetaminophen 500 mg capsule 1,000 mg PO Q4H PRNRF: 0 albuterol sulfate 90 mcg/actuation HFA aerosol inhaler 2 puff IH Q4H PRNRF: 0 pantoprazole [Protonix] 20 mg tablet,delayed release (DR/EC) 20 mg PO DAILY RF: 0 epinephrine [EpiPen 2-[place]] 0.3 mg/0.3 mL auto-injector 0.3 mg IM ONCE PRNRF: 0 aspirin 81 mg tablet,delayed release (DR/EC) 81 mg PO DAILY Qty: 90 RF: 4 Discharge Instructions Additional Instructions: You may use [id number] ibuprofen take 600 mg every 6 hours as needed for pain Tylenol 1 g every 6 hours for pain is also okay to take. Stand Alone Forms: BC Instructions, BC Discharge Instruc Activity:: Activity as Tolerated Equipment/Supplies:: No Equipment Needed Diet:: As Tolerated Discharge Orders Discharge Orders: Discharge Order (Routine); Ordered 05/04/20 Ordered By: Mone Vincent DS: Diagnosis Discharge Diagnosis (1) Arrested active phase of labor: Status: Acute
[2020-05-04] MEDS: Varicella Virus Vaccine (Live) 0.5 ML SC (09:14)
--- NOTE | 2020-05-04 09:31 | DSE_ITS ---
Date of service: 05/04/20 Time of Service: 09:31 DS: Diagnosis Discharge Diagnosis (1) Arrested active phase of labor: Status: Acute (2) Hx of section: Status: Inactive Asessment and Plan: 05/02/2020 primary unscheduled low transverse delivery. Female. 7/9. Weight 3530 g Discharge Plan Disposition Patient Disposition: HOME Condition: Good Discharge Details Reason For Visit: IOL POSTDATES Admit Date/Time: 05/01/20 17:25 Admit Provider: Shima Medrano Attending Provider: Shima Medrano Primary Care Provider: Krys Bey Hospital Course Hospital Course: Patient is a 25-year-old G2 now P1 female admitted at 41 weeks estimated gestational age for postdates induction of labor. She underwent cervical ripening with misoprostol and eventually had spontaneous labor. Maximum cervical dilatation 3 cm despite adequate contractions. surveillance was reassuring during labor process. She underwent a primary delivery on 05/02/2020 with delivery of a health the female named Maral. Weight 3530 g. Apgars 7/9. Patient was discharged home on post op day 2 successfully breast-feeding. Plan is to have her follow-up in approximately 2 weeks for incision check. Home Meds and New Rx's Prescriptions: No Action prenat.vits,cierra,xxt-aker-jbbqa Tablet 1 tab PO DAILY RF: 0 calcium carbonate [Calcium 500] 500 mg calcium (1,250 mg) tablet 1,000 mg PO DAILY RF: 0 acetaminophen 500 mg capsule 1,000 mg PO Q4H PRNRF: 0 albuterol sulfate 90 mcg/actuation HFA aerosol inhaler 2 puff IH Q4H PRNRF: 0 pantoprazole [Protonix] 20 mg tablet,delayed release (DR/EC) 20 mg PO DAILY RF: 0 epinephrine [EpiPen 2-[place]] 0.3 mg/0.3 mL auto-injector 0.3 mg IM ONCE PRNRF: 0 Discharge Instructions Additional Instructions: You may use [id number] ibuprofen take 600 mg every 6 hours as needed for pain Tylenol 1 g every 6 hours for pain is also okay to take. Stand Alone Forms: BC Instructions, BC Discharge Instruc Activity:: Activity as Tolerated Equipment/Supplies:: No Equipment Needed Diet:: As Tolerated Discharge Orders Discharge Orders: Discharge Order (Routine); Ordered 05/04/20 Ordered By: Mone Vincent Discharge Data Discharge Date/Time-TO BE ENTERED AT DEPARTURE: 05/04/20 11:35 DS: Summary Status at Discharge Functional status at discharge: independent ambulation Overall status at discharge: patient is progressing back to baseline Mental Status: mental status grossly normal Speech and Movement: speech and movement normal Mood: congruent mood Affect: normal affect Exam Narrative Exam Narrative: Satisfactory postop recovery after urgent unscheduled delivery for arrest of dilation and descent. She was discharged home successfully breast-feeding. Pain was controlled with as needed Tylenol and ibuprofen. Const General: no acute distress Nutritional Appearance: overweight Orientation: alert, awake and oriented x3 Chest Chest: normal inspection of the chest Resp Effort & Inspection: normal respiratory effort Auscultation: clear to auscultation bilaterally Cardio Rate: regular rate Rhythm: regular rhythm GI Palpation: mass (Uterine fundus 3 fingerbreadths below umbilicus. Nontender.) General: deferred Skin General skin exam: no ecchymosis, no erythema and scars (Pfannenstiel skin incision well approximated skin glue in place. ) Rashes: no rashes Extrem General: normal to inspection Psych Appearance: grossly normal Mental Status: mental status grossly normal Speech and Movement: speech and movement normal Mood: congruent mood Affect: normal affect DS: Data Vitals/I&O Vitals and I&O: Vital Signs Temperature 98.6 F 05/03/20 22:00 Temperature Source Oral 05/02/20 16:15 Pulse 61 05/03/20 22:00 Pulse Rhythm Regular 05/03/20 09:15 Respiratory Rate 16 05/03/20 22:00 Blood Pressure 98/60 L 05/03/20 22:00 Blood Pressure Mean 72 05/03/20 22:00 Pulse Oximetry 98 05/03/20 22:00 Oxygen Delivery Method Room Air 05/02/20 16:15 Oxygen Flow Rate 0 05/02/20 16:15 Pain Level 0 05/03/20 22:00 Intake & Output 05/03/20 05/03/20 05/04/20 11:59 23:59 11:59 Intake Total 550 / 550 Output Total 600 / 850 250 / 850 Balance -50 / -300 -250 / -300 Intake: Oral 550 / 550 Output: Urine 600 / 850 250 / 850 Other: Urine Color Light Janine Yellow [facility] Medical History Anxiety Asthma Cyst of Bartholin's gland Dysuria Encounter for induction of labor Migraine headache with aura Post-dates Urinary tract infection Wound infection after surgery Surgical History History of esophagogastroduodenoscopy (EGD) Hx of appendectomy Hx of section 05/02/2020. Arrest of dilation and descent at 41 weeks [place]HON[place]NAMarielos Alicia. Status post primary low transverse section Family History Mother Diverticulosis of colon with hemorrhage Hypertension w/ Asthma H/O: hysterectomy Father Heart disease COPD (chronic obstructive pulmonary disease) Aneurysm of heart Social History Smoking/Tobacco Use Status: Never Smoking risk assessment performed?: Yes Alcohol Intake: never Drug use: Never Substance use type: does not use Current gender identity: female Seatbelt use: always Do you feel safe at home: Yes Do you feel safe in your relationship?: Yes History History 2 Para 1 Hx # Term Pregnancies 0 Multiple births 0 Hx # Pregnancies 0 Ectopic pregnancies 0 AB induced 0 Hx Number of Living Children 1 AB spontaneous 1 Past Pregnancies Del. Date GA/Weeks # Outcome Route Wgt Sex Labor Lgth Anesthes ia Location Prov Complic 04/08/[address] Antonette mayberry 05/02/20 41 No Successful 7 lb 12.517 oz Female mone o'josse Delivery Date: 04/08/19 Miscarriage at 8 with a D/C on 04/08/19 Belkis Rebolledo LPN Delivery Date: 05/02/20 No notes to display
--- NOTE | 2020-05-04 10:17 | OBPPV_ITS ---
Date of service: 05/03/20 Time of Service: 08:18 Assessment and Plan Assessment and plan (1) Arrested active phase of labor: Status: Acute Assessment and plan: Patient recovering from primary delivery. We will continue to support breast-feeding. Plan discharge to home tomorrow 05/04/2020. Subjective Subjective Patient comments: Pain well controlled and Tolerating diet baby status: Supplemental feeding going well, Rooming in and Strong Bonding Observed [place] feeding status: Exclusively breast feeding Narrative: Postop day 1 after unscheduled primary delivery for arrest of dilatation and descent. Patient has received Toradol and ibuprofen for pain relief. She declines narcotics and has done well with NSAIDs. Interest remains sleepy and has not latched on well but patient in are supplementing nursing. Exam Physical Exam Vital signs: Temp Pulse Resp BP Pulse Ox 98.6 F 61 16 98/60 L 98 05/03/20 22:00 05/03/20 22:00 05/03/20 22:00 05/03/20 22:00 05/03/20 22:00 Vital Signs Reviewed: Yes Constitutional Constitutional: no acute distress HEENT Exam HEENT Exam: Not Done Neck Exam Neck Exam: Normal Respiratory Exam Respiratory Exam: Normal Cardiovascular Exam Cardiovascular Exam: Normal Abdominal Exam Comments: Pfannenstiel skin incision clean dry and intact. Skin glue in place Fundal Exam Fundus: Below Umbilicus and Firm Rectal Exam Rectal Exam: Not Done Extremities Exam Extremity Exam: Normal Back/Spine/Pelvis Exam Back Exam: Normal Skin Exam Skin Exam: Normal (Penicillin skin incision: No ecchymosis or induration) Neurological Exam Neurological Exam: Normal Psychiatric Exam Psychiatric Exam: Normal Results Hemoglobin/Hematocrit: Hgb 10.5 g/dL (11.2-15.7) L 05/03/20 06:15 Hct 31.2 % (36.0-46.0) L 05/03/20 06:15 Abnormal Lab Findings: Abnormal Labs 05/01/20 05/03/20 18:00 06:15 WBC 14.04 H RBC 3.80 L 3.36 L Hgb 10.5 L Hct 34.6 L 31.2 L MPV 12.7 H 12.3 H Absolute Neutrophils 11.72 H
== END 2020-05-04 11:35 | disposition home or self-care (01) | DRG 787 ==
PROVIDERS: Obstetrics & Gynecology Gynecology; Admitting Provider Obstetrics & Gynecology; PCP Internal Medicine; Visit Provider Obstetrics & Gynecology
PROC: (CPT 59514; principal; 2020-05-02 21:40)
DX: Z37.0 Single live birth (principal); O48.0 Post-term pregnancy; O62.1 Secondary uterine inertia; O99.354 Diseases of the nervous system complicating childbirth; Z3A.41 41 weeks gestation of pregnancy; O99.344 Other mental disorders complicating childbirth; O99.52 Diseases of the respiratory system complicating childbirth; G43.109 Migraine with aura, not intractable, without status migrainosus; J45.909 Unspecified asthma, uncomplicated
CPT/HCPCS: 59514; 36415; 85027; 86850; 86900; 86901; NC; U0003; 85025; J0131; J0456; J0690; J1885; J2405; J2590; J3490

== ENCOUNTER 2020-05-08 20:28 | Outpatient (REF) | payer BC, SELFPAY | END 2020-05-08 20:48 | LOC: LBN 20:28 | PROVIDERS: PCP Internal Medicine; Visit Provider Obstetrics & Gynecology | DX: N39.0 Urinary tract infection, site not specified (principal) | CPT/HCPCS: 87086 ==

== ENCOUNTER 2021-08-22 08:02 | Outpatient (CLI) | payer MEDICAID, SELFPAY | END 2021-08-22 08:03 | disposition home or self-care (01) | LOC: LBO 08:03 | PROVIDERS: Visit Provider Advanced Practice Midwife ==

== ENCOUNTER 2021-08-23 02:04 | Outpatient (CLI) | payer MEDICAID, SELFPAY ==
[2021-08-23 10:27] LABS: Kit/Specimen SENT
[2021-08-23 10:48] LABS: Abs Immature Grans 0.05 10^3/uL (0.0-0.06); Absolute Basophil Count 0.03 10^3/uL (0.0-0.2); Absolute Eosinophil Count 0.42 10^3/uL (0.0-0.7); Absolute Lymphocyte Count 1.32 10^3/uL (1.2-3.4); Absolute Monocyte Count 0.42 10^3/uL (0.1-0.8); Absolute Neutrophil Count 6.86 10^3/uL (1.2-6.7); Basophils % 0.3; Eosinophils % 4.6; HCT 38.7 % (36.0-46.0); HGB 13.1 g/dL (11.2-15.7); Immature Grans % 0.5; Lymphocytes % 14.5; MCH 31.2 pg (27.0-33.0); MCHC 33.9 % (32.0-36.0); MCV 92.1 fL (80-95); MPV 10.2 fL (8.0-11.0); Monocytes % 4.6; Neutrophils % 75.5; Nucleated RBC 0 %; Platelet Count 247 10^3/uL (130-400); RDW 12.4 % (11.7-14.6); RDW-SD 42.2 fL
[2021-08-23 11:28] LABS: TSH (W/Ref FT4) 1.51 uIU/mL (0.36-3.74)
[2021-08-24 10:10] LABS: Hepatitis C Ab w Rflx HCV PCR Negative (Negative)
[2021-08-24 10:26] LABS: HIV-1/2 Ag & Ab Screen Negative (Negative)
[2021-08-24 12:20] LABS: Varicella IgG Antibody Positive (See Note)
[2021-08-24 12:26] LABS: Rubella IgG Ab (UVM) Positive (See Note)
[2021-08-24 16:16] LABS: Hepatitis B Surface Ag Negative (Negative)
[2021-08-26 15:12] LABS: Syphilis IgG w/Reflex Nonreactive (Nonreactive)
[2021-08-28 23:30] LABS: Result Summary NEGATIVE; Specimen WB Whole Blood
== END 2021-08-23 02:05 | disposition home or self-care (01) ==
LOC: LBO 02:05
PROVIDERS: Visit Provider Advanced Practice Midwife
DX: Z34.91 Encounter for supervision of normal pregnancy, unspecified, first trimester (principal); Z3A.11 11 weeks gestation of pregnancy
CPT/HCPCS: 86787; 86803; 86850; 86900; 86901; 87340; 87389; 81220; 84443; 85025; 86762; 86780

== ENCOUNTER 2021-08-23 18:16 | Outpatient (REF) | payer MEDICAID, SELFPAY ==
[2021-08-23 13:18] LABS: *AMPHETAMINES SCREEN URINE Negative (Negative); *BARBITURATES SCREEN URINE Negative (Negative); *BENZODIAZEPINES SCREEN URINE Negative (Negative); Cannabinoids THC Negative (Negative); Cocaine Screen,Urine Negative (Negative); METHADONE URINE SCREEN Negative (Negative); OPIATES URINE SCREEN Negative (Negative)
[2021-08-23 13:19] LABS: Tricyclic Antidepressants Negative (Negative)
[2021-08-29 15:42] LABS: Buprenorphine Negative ng/mL (Cutoff: 5.0); Norbuprenorphine Negative ng/mL (Cutoff: 2.5)
== END 2021-08-23 18:17 | disposition home or self-care (01) ==
LOC: LBN 18:16
PROVIDERS: Visit Provider Advanced Practice Midwife
DX: Z34.91 Encounter for supervision of normal pregnancy, unspecified, first trimester (principal); Z3A.11 11 weeks gestation of pregnancy
CPT/HCPCS: 80307; 87086

== ENCOUNTER 2021-09-20 19:45 | Outpatient (REF) | payer MEDICAID, SELFPAY ==
[2021-09-27 09:59] LABS: Chlamydia Result Negative (Negative)
[2021-09-27 10:00] LABS: GC Result Negative (Negative)
== END 2021-09-20 19:46 | disposition home or self-care (01) ==
LOC: LBN 19:45
PROVIDERS: Visit Provider Advanced Practice Midwife
DX: Z34.92 Encounter for supervision of normal pregnancy, unspecified, second trimester (principal); Z3A.15 15 weeks gestation of pregnancy
CPT/HCPCS: 87491; 87591

== ENCOUNTER → 2021-10-10 03:44 | Outpatient (CLI) | payer MEDICAID, SELFPAY ==
--- NOTE | 2021-10-10 07:45 | DI.US_ITS ---
Exam(s) US OB 2-3 TRIMESTER EXAM: US OB 2-3 TRIMESTER CLINICAL HISTORY: 18 wk anatomy survey, Z34.90. TECHNIQUE: Transabdominal obstetrical ultrasound performed. COMPARISON: US US OB 2-3 TRIMESTER from 11/22/2019 FINDINGS: Transabdominal obstetrical ultrasound performed. FINDINGS: Number of fetuses: One. position: Cephalic heart rate: 143 bpm. Placental location: There is a grade 1 anterior placenta. No evidence of previa. Amniotic fluid index: Amount of fluid is within normal limits. ANATOMICAL SURVEY: Within normal limits. BIOMETRIC DATA: BPD: 4.1cm consistent with 18 weeks 2 days. HC: 15cm consistent with 18 weeks 1 day. AC: 12.5cm consistent with 18 weeks 1 day. FL: 2.7cm consistent with 18 weeks 2 days. Cisterna Magna: 3 mm Cerebellum: 1.9 cm EFW: 229 grms 49% Composite Age: 18 weeks 2 days EDC by US: 03/11/2022 IMPRESSION: 1. Single live intrauterine gestation as above. 2. Normal anatomic survey. DATA REPOSITORY:
== END ==
PROVIDERS: Visit Provider Advanced Practice Midwife
DX: Z34.92 Encounter for supervision of normal pregnancy, unspecified, second trimester (principal); Z3A.18 18 weeks gestation of pregnancy
CPT/HCPCS: 76805

== ENCOUNTER 2021-12-14 01:16 | Outpatient (CLI) | payer MEDICAID, SELFPAY ==
[2021-12-14 14:50] LABS: HCT 33.6 % (36.0-46.0); HGB 11.7 g/dL (11.2-15.7); MCH 31.6 pg (27.0-33.0); MCHC 34.8 % (32.0-36.0); MCV 91 fL (80-95); MPV 10.3 fL (8.0-11.0); Platelet Count 198 10^3/uL (130-400); RDW 12.6 % (11.7-14.6); RDW-SD 41.4 fL; WBC 8.47 10^3/uL (4.4-10.8)
[2021-12-14 15:26] LABS: Glucose,1 Hr (Glucola) 99 mg/dL (80-140)
== END 2021-12-14 01:17 | disposition home or self-care (01) ==
LOC: LBO 01:17
PROVIDERS: PCP Nurse Practitioner Adult Health; Visit Provider Advanced Practice Midwife
DX: Z34.92 Encounter for supervision of normal pregnancy, unspecified, second trimester (principal); Z3A.27 27 weeks gestation of pregnancy
CPT/HCPCS: 36415; 82950; 85027

== ENCOUNTER 2022-01-17 16:54 | Outpatient (REF) | payer MEDICAID, SELFPAY | END 2022-01-17 16:55 | disposition home or self-care (01) | LOC: LBN 16:54 | PROVIDERS: PCP Nurse Practitioner Adult Health; Visit Provider Obstetrics & Gynecology | DX: Z34.93 Encounter for supervision of normal pregnancy, unspecified, third trimester (principal) | CPT/HCPCS: 87086 ==

== ENCOUNTER 2022-02-11 14:51 | Outpatient (REF) | payer MEDICAID, SELFPAY ==
[2022-02-11 18:21] LABS: *AMPHETAMINES SCREEN URINE Negative (Negative); *BARBITURATES SCREEN URINE Negative (Negative); *BENZODIAZEPINES SCREEN URINE Negative (Negative); Cannabinoids THC Negative (Negative); Cocaine Screen,Urine Negative (Negative); METHADONE URINE SCREEN Negative (Negative); OPIATES URINE SCREEN Negative (Negative)
[2022-02-11 18:23] LABS: Tricyclic Antidepressants Negative (Negative)
[2022-02-16 17:23] LABS: Buprenorphine Negative ng/mL (Cutoff: 5.0); Norbuprenorphine Negative ng/mL (Cutoff: 2.5)
== END 2022-02-11 14:52 | disposition home or self-care (01) ==
LOC: LBN 14:51
PROVIDERS: PCP Nurse Practitioner Adult Health; Visit Provider Advanced Practice Midwife
DX: Z34.93 Encounter for supervision of normal pregnancy, unspecified, third trimester (principal); Z36.85 Encounter for antenatal screening for Streptococcus B; Z3A.35 35 weeks gestation of pregnancy
CPT/HCPCS: 80307; 87081

== ENCOUNTER 2022-02-18 15:05 | Outpatient (CLI) | payer MEDICAID, SELFPAY ==
[2022-02-18 16:21] VITALS: BP 111/65; PULSE 82
[2022-02-18 16:32] VITALS: BP 111/65; PULSE 82
--- NOTE | 2022-02-18 16:32 | W.OBNST ---
Date of service: 02/18/22 Time of Service: 16:32 NST Evaluation Reason for NST Reasons for Nonstress Test: OTHER, SEE COMMENT Reason for NST Other: decreased Movement in office Gestational Age Gestational Age in Weeks and Days: 37 Weeks and 0Days Test and Monitor Explained Test/Monitor Explained: Test Explained and Monitor Explained Vital Signs Blood Pressure: 111/65 Pulse: 82 NST Information Date on Monitor: 02/18/22 Time on Monitor: 14:30 Date off Monitor: 02/18/22 Time off Monitor: 16:32 Total Time on Monitor: 122 NST Interventions: None Contraction Frequency: none noted NST Evaluation Patient States Movement: Present FHR Baseline: 130 Variability: Moderate 6-25 bpm Accelerations: 15x15 Decelerations: None NST Results: Reactive Note NST Note NST Reviewed and Verified by: Jamaica Berger
== END 2022-02-18 16:00 | disposition home or self-care (01) ==
LOC: BCD 15:07 → OBS 15:45
PROVIDERS: PCP Nurse Practitioner Adult Health; Visit Provider Advanced Practice Midwife
DX: O36.8130 Decreased fetal movements, third trimester, not applicable or unspecified (principal); O36.8330 Maternal care for abnormalities of the fetal heart rate or rhythm, third trimester, not applicable or unspecified; Z3A.37 37 weeks gestation of pregnancy
CPT/HCPCS: 59025

== ENCOUNTER 2022-03-18 11:16 | Inpatient (IN) | payer MEDICAID, SELFPAY ==
[2022-03-18] VITALS (55 sets, daily range): BP systolic 97–120; BP diastolic 53–75; PULSE 59–106; RESP 16–22; TEMP 36.7–37; TEMPC 36.4–36.7; O2SAT 95–100; BMI 31.8
--- NOTE | 2022-03-18 11:39 | HPE_ITS ---
Date of service: 03/18/22 Time of Service: 11:39 Assessment and Plan Assessment and plan (1) Uterine contractions: Status: Acute Assessment and plan: 1. Admit and IV access / fluid bolus. 2. Dr. Vincent notified of patient's admission and that she is tired, but wanting a few more hours of assessment when comfortable from epidural to assess for progress. 3. Anesthesia will place epidural and rfp writer will reassess cervix in 2 hours or prn. 4. Admission labs obtained, will get COVID test. (2) Patient desires vaginal after section (): Status: Acute Assessment and plan: 1. Account Manager Employee Benefits verified with patient that she would like to continue to be assessed for cervical change and then determine plan for continued TOLAC vs repeat C/S. Patient is happy with that plan. 2. MD aware of patient's arrival and plan and Dr. Vincent has notified OR/ FOOD SUPERVISOR. TAMMI OB-HPI Labor/Delivery History of Present Illness Reason for Visit: contractions Chief Complaint: Uterine Contractions. ТАТЬЯНА Calculator Estimated Delivery Date Method Current WG Current Estimate 03/12/22 Ultrasound #1 40w 6d Other Estimates 03/09/22 LMP (Certain) 41w 2d Comments: VE done in office for regular contractions. Madeleine has been having some contractions since Friday and they have been regular since 03/18/22 at 0130. Denies ROM or show. Baby has been somewhat active. She does not want to go home to see if her labor progresses, she is fatigued and is uncertain at this time if she wants to persist with pursuing TOLAC. Patient is admitted to for pain management and monitoring for progress. She is very tired but does not want to go immediately to C/S at this time. Dr. Vincent also presented at time of admission and reviewed option of C/S now VS expectant management with good pain relief. Patient would like epidural and reassessment. I don't want to do this for too long so I'm so tired I can't enjoy the baby either. VIANNEY Neal is also attending shortly after patient arrives to place epidural. TAMMI History of Present Expected Delivery Route/Plan TOLAC/ - CNM FOB/ - Joss Menchaca (2nd child together) Doesn't want to know gender; if male, no circ Would choose repeat C/S over IOL @ [facility]: book for 03/20/22 GBS negative Specific Issues/Plan 1. Desires TOLAC/ 1a. 30 wk consult with for consent 01/24/2022 1b. double layer uterine closure verified per op report -RCS scheduled for 41wks: 03/20/22 2. Hx IBS managed w/diet, s/p cholecystectomy 2018; appendectomy 1997 3. Pt and FOB are vaccinated x2, not boosted 4. Nursing her toddler (16 mo) 5. Hx migraine SCALES, occasional w/ 6. Desires cfDNA (LR panorama) and CF screen, drawn @ 11 wks: CF negative; Declines- AFP 7. 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 High fiber has helped. Uses Dicyclomine PRN. History of heartburn (~2018) s/p several normal EGDs History of migraine hemiplegic--[facility] neuro; resolved s/p History of sleep walking ?Amitriptyline related Surgical History (Updated 08/06/21 @ 15:18 by Jamaica Berger) H/O dilation and curettage (~02/2019) missed miscarriage History of esophagogastroduodenoscopy (EGD) (~2019) 2013 & 2019-->normal; neg celiac biopsies Hx laparoscopic cholecystectomy (~05/17/19) [facility] Hx of appendectomy (~1997) Hx of section (~05/02/20) 05/02/2020. Arrest of dilation and descent at 41 weeks EGA. Crystal Alicia. Family History Mother Diverticulosis of colon with hemorrhage Hypertension w/ Asthma H/O: hysterectomy Father Heart disease stent; mild heart attack COPD (chronic obstructive pulmonary disease) H/O nicotine Aneurysm of heart Paternal Grandfather Dementia Paternal Grandmother Dementia Maternal Grandfather Dementia Maternal Grandmother Uterine cancer Leukemia chronic myeloid leukemia Other Alcohol use disorder Depression Social History Smoking/Tobacco Use Status: Never Smoking risk assessment performed?: Yes Alcohol Intake: never Drug use: Never Substance use type: does not use Adopted: No Caregiver/Support person: No Foster care: No Household members: spouse and children Housing: house Number of Children: 1 number of grandchildren: 0 Communication Needs: None Education Level: college Details: Associate's Degree Do you need help understanding health information?: Rarely current occupation: stay at home parent Pets and animals: Yes (1, 6) Pets and animals: cat(s) and dog(s) Sexually active: Yes Do you think of yourself as: straight/heterosexual Current gender identity: female What is your relationship status?: How often do you talk on the phone with friends or family?: three or more times per week How often do you get together with friends or relatives?: three or more times per week Do you belong to any clubs or organized social groups?: no Panel score (0-1 are the most socially isolated patients): 2 What type of physical activity do you participate in: walking and regular exercise Duration: 30-45 minutes/day Frequency: daily Rosemarie/Yazidism: None Special rosemarie needs: No Seatbelt use: always Helmet use: Yes Helmet use: always Drive intox or ride w/intox diesel truck driver: No Working smoke detector in home: Yes Fire extinguisher in home: Yes Carbon monox detector in home: Yes Do you feel safe at home: Yes Do you feel safe in your relationship?: Yes History History 3 Para 1 Hx # Term Pregnancies 1 Multiple births 0 Hx # Pregnancies 0 Ectopic pregnancies 0 AB induced 0 Hx Number of Living Children 1 AB spontaneous 1 Past Pregnancies Del. Date GA/Weeks # Preg Succ Route Wgt Sex Labor Lgth Anesth esia Location Prov Complic 04/08/[address] Bauer 05/02/20 41 No 7 lb 12.517 oz Female yocasta jimenez Delivery Date: 04/08/19 Last Updated by: eBlkis Rebolledo LPN Miscarriage at 8 with a D/C on 04/08/19 Delivery Date: 05/02/20 Last Updated by: Savanna Rodriguez CNM labor, IOL postdates, arrest at 3-4 cm for many hrs, then FHT decels. Inadequate anesthesia during surgery. wound infection. Meds Allergies and Home Medications Allergies Allergy/AdvReac Type Severity Reaction Status Date / Time apple Allergy Anaphylaxis Verified 03/18/22 11:20 Cephalosporins Allergy Rash (full Verified 03/18/22 11:20 body) chico Allergy Verified 03/18/22 11:20 peach Allergy Verified 03/18/22 11:20 plum Allergy Verified 03/18/22 11:20 Sulfa (Sulfonamide Allergy Verified 03/18/22 11:20 Antibiotics) verapamil Allergy dizziness, Verified 03/18/22 11:20 headaches almonds Allergy Uncoded 03/18/22 11:20 mushrooms Allergy Uncoded 03/18/22 11:20 Home Medications Medication Instructions Recorded Confirmed Type acetaminophen 500 mg capsule 1,000 mg PO Q4H PRN 03/23/19 03/18/22 History prenat.vits,cierra,xfu-pozx-ezurf 1 tab PO DAILY 08/20/19 03/18/22 History albuterol sulfate 90 mcg/actuation 1 - 2 puff inhalation Q4H PRN 05/21/21 03/18/22 Rx aerosol inhaler shortness of breath or wheezing #8.5 grams epinephrine 0.3 mg/0.3 mL 0.3 mg (0.3 mL) IM ONCE PRN 05/21/21 03/18/22 Rx injection, auto-injector (EpiPen anaphylaxis #1 ea 2-[place]) loratadine 10 mg tablet (Claritin) 10 mg PO DAILY PRN allergic 11/07/21 03/18/22 History symptoms promethazine 12.5 mg tablet 25 mg PO Q6H PRN nausea and 01/18/22 03/18/22 Rx vomiting #30 tabs pantoprazole 20 mg tablet,delayed 20 mg PO DAILY 01/28/22 03/18/22 History release (Protonix) Exam Physical Exam Narrative: VS in office normal. TAMMI Constitutional Constitutional: mild distress (pain due to regular contractions every 3-5 minutes and fatigue) Detailed Labor and Delivery Exam Dilation: 1 Effacement (%): 80 station: -3 Position: OP Cervix position: posterior Consistency: soft Martinez Score: Cervical Points Exam 0 1 2 3 Dilation Closed 1-2cm 3-4 cm 5-6cm Effacement 0-30% 40-50% 60-70% 80% Consistency Firm Medium Soft Station -3 -2 -1,0 +1,+2 Position Posterior Mid Anterior Amniotic Membrane Status: Intact Contraction Frequency(min): 3-5 Contraction Duration(sec): 50-90 Contraction Intensity: Moderate/Strong Fetus A Heart Rate Baseline: 134 Monitor Accelerations: 10 X 10 Monitor Decelerations: None Variability: Moderate (6-25 BPM) Categories: Category I Est. Weight: 7 lb 8 oz HEENT Exam HEENT Exam: Normal (has nose ring left side) Neck Exam Neck Exam: Normal Chest/Brest/Axilla Exam Chest Exam: Normal Breast Exam Breast Exam: Not Done Respiratory Exam Respiratory Exam: Normal Cardiovascular Exam Cardiovascular Exam: Normal Abdominal Exam Abdominal Exam: Normal (gravid, size equals dates) Rectal Exam Rectal Exam: Not Done Exam Exam: Normal Extremities Exam Extremities Exam: Normal Back/Spine/Pelvis Exam Back Exam: Normal Pelvis Adequate: Yes Skin Exam Skin Exam: Normal Neurological Exam Neurological Exam: Normal Psychiatric Exam Psychiatric Exam: Normal Risk Assessment Risk for Shoulder Dystocia Historical/Initial OB: NEGATIVE FOR: Pelvic Abnormality, Pre- BMI>30, Previous Shoulder Dystocia or Previous Macrosomia 40 Weeks: NEGATIVE FOR: EFW> 4500 gms, Maternal Weight Gain >40lb or Post Dates Date/Initial: 03/18/22: TAMMI Delivery Plan @ 36wks: spont labor for Delivery Plan @ 40 wks: TOLAC unless no cervical change a few hours after epidural. KH Risk for Pre-Eclampsia Date Initiated/Initials: not indicated. jk Yes, if one or more: NEGATIVE FOR: Hx Pre-E/Gest HTN, Chronic HTN, Multiple Gestation, Pre-gestational DM, Renal Disease, Systemic Lupus or APA Syndrome Yes, if 2 or more: POSITIVE FOR: Mother/Sister w/ Pre-E; NEGATIVE FOR: Nulliparity, Age>= 35 yrs, >10yr btwn pregnancies, BMI>30, ethinicty or Previous IUGR Risk for Post- Hemorrhage Initial: NEGATIVE FOR: Multiple Gestation, Previous PPH, Known Clotting Deficiency, Grand Multiparity or Anticoagulation At Risk?: Yes (moderate risk due to TOLAC and regular contractions for 10 hours at admit) Counseled re: Active Management: Yes Risks Reviewed Risks Reviewed Upon Admission: Yes
--- NOTE | 2022-03-18 11:44 | ANES.PREOP_ITS ---
General Info Date of Service Date Performed: 03/18/22 Height: 5 ft 2 in Weight: 78.925 kg Body Mass Index (BMI): 31.8 Surgical Procedure: Operation Date: 03/18/22 12:10 Proposed Procedure Side Surgeon p Section Mone Vincent MD Meds Allergies and Home Medications Allergies Allergy/AdvReac Type Severity Reaction Status Date / Time apple Allergy Anaphylaxis Verified 03/18/22 11:20 Cephalosporins Allergy Rash (full Verified 03/18/22 11:20 body) chico Allergy Verified 03/18/22 11:20 peach Allergy Verified 03/18/22 11:20 plum Allergy Verified 03/18/22 11:20 Sulfa (Sulfonamide Allergy Verified 03/18/22 11:20 Antibiotics) verapamil Allergy dizziness, Verified 03/18/22 11:20 headaches almonds Allergy Uncoded 03/18/22 11:20 mushrooms Allergy Uncoded 03/18/22 11:20 Home Medication Medication Instructions Recorded acetaminophen 500 mg capsule 1,000 mg PO Q4H PRN 03/23/19 prenat.vits,cierra,rlg-ujqr-oddzt 1 tab PO DAILY 08/20/19 albuterol sulfate 90 mcg/actuation 1 - 2 puff inhalation Q4H PRN 05/21/21 aerosol inhaler shortness of breath or wheezing #8.5 grams epinephrine 0.3 mg/0.3 mL 0.3 mg (0.3 mL) IM ONCE PRN 05/21/21 injection, auto-injector (EpiPen anaphylaxis #1 ea 2-[place]) loratadine 10 mg tablet (Claritin) 10 mg PO DAILY PRN allergic 11/07/21 symptoms promethazine 12.5 mg tablet 25 mg PO Q6H PRN nausea and 01/18/22 vomiting #30 tabs pantoprazole 20 mg tablet,delayed 20 mg PO DAILY 01/28/22 release (Protonix) Current Visit Medications: Current Medications Generic Name Dose Route Start Last Admin Trade Name Freq PRN Reason Stop Dose Admin Bupivacaine HCl 0 ml 03/18/22 11:43 Bupivacaine 0.25% Pres-Free 10 Ml Vial EP 03/18/22 11:44 NOW ONE Fentanyl 0 mcg 03/18/22 11:43 Fentanyl 100 Mcg/2 Ml Vial EP 03/18/22 11:44 NOW ONE Fentanyl/Ropivacaine 200 ml 03/18/22 11:45 Fentanyl/Ropivacaine 2 Mcg/Ml And 0.1% 200 Ml [place] EP DIRECTED GLO Sodium Chloride 500 mls @ 0 mls/hr 03/18/22 11:16 Saline 500ml Bag IV PRN PRN As Directed Ringer's Solution 500 mls @ 500 mls/hr 03/18/22 11:43 IV 03/18/22 12:42 BOLUS ONE IV Miscellaneous Supplies 1 each 03/18/22 11:30 Iv Access IV DIRECTED GLO Sodium Chloride 0 ml 03/18/22 11:16 Normal Saline Flush 10 Ml Syr IVP PRN PRN PFSH Active Problems Active Problems: Problem Status Onset Code Left lower quadrant abdominal pain affecting in second trimester O 26.892, R10.32 Allergy to sulfa drugs Z88.2 Patient desires vaginal after section () O34.219 Z34.90 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 High fiber has helped. Uses Dicyclomine PRN. History of heartburn (~2018) s/p several normal EGDs History of migraine hemiplegic--[facility] [place]; resolved s/p History of sleep walking ?Amitriptyline related Surgical History Surgical History (Updated 08/06/21 @ 15:18 by Jamaica Berger) H/O dilation and curettage (~02/2019) missed miscarriage History of esophagogastroduodenoscopy (EGD) (~2018) 2013 & 2019-->normal; neg celiac biopsies Hx laparoscopic cholecystectomy (~05/17/19) [facility] Hx of appendectomy (~1997) Hx of section (~05/02/20) 05/02/2020. Arrest of dilation and descent at 41 weeks EGA. Crystal Alicia. Tobacco Smoking/Tobacco Use Status: Never Alcohol Alcohol Intake: never Substance Use Substance use: Never Substance use type: does not use Prental History History 3 Para 1 Hx # Term Pregnancies 1 Multiple births 0 Hx # Pregnancies 0 Ectopic pregnancies 0 AB induced 0 Hx Number of Living Children 1 AB spontaneous 1 Past Pregnancies Del. Date GA/Weeks # Preg Succ Route Wgt Sex Labor Lgth Anesth esia Location Prov [facility] 04/08/[address] Bauer 05/02/20 41 No 3530 g Female mone jimenez Delivery Date: 04/08/19 Last Updated by: Belkis Rebolledo LPN Miscarriage at 8 with a D/C on 04/08/19 Delivery Date: 05/02/20 Last Updated by: Savanna Rodriguez CNM labor, IOL postdates, arrest at 3-4 cm for many hrs, then FHT decels. Inadequate anesthesia during surgery. wound infection. Vital Signs and Lab Results Vital Signs Most Recent Vital Signs in EMR: Most Recent Vital Signs Pulse BP 81 111/67 03/18/22 11:40 03/18/22 11:40 Manually Entered Vital Signs Most Recent Manually Entered Vital Signs: Adult Blood Pressure: 111/67 Heart Rate: 89 Respirations: 18 Oxygen Saturation (%): 97 Temperature (C): 36.7 C Lab Results Result Diagrams: 03/18/22 11:16 Blood Type / Crossmatch: No Data to Display Complete Blood Count: No Data to Display Complete Metabolic Panel: No Data to Display Liver Function Panel: No Data to Display Coagulation Panel: No Data to Display Cardiac Panel: No Data to Display Arterial Blood Gas: No Data to Display Venous Blood Gas: No Data to Display Pancreas Panel: No Data to Display Thyroid Panel: No Data to Display Infectious Disease: No Data to Display Blood Cultures: No Data to Display Toxicology Panel: No Data to Display Panel: No Data to Display Anesthesia Assessment and Plan Anesthesia History Personal History: No History of Anesthesia Complications Family History: No Family History of Anesthesia Complications Exercise Tolerance Exercise Tolerance: Metabolic Equivalents>4 Pertinent Negatives Pertinent Negatives: No Major Cardiovascular Symptoms or Complaints and No Major Pulmonary Symptoms or Complaints Cardiac & Pulmonary Exam Cardiac Exam: Normal S1/S2 Heart Sounds Pulmonary Exam: Clear Bilateral Breath Sounds Implantable Cardiac Device Does patient have a Pacemaker or an ICD?: No Airway Exam Known Difficult Airway: No Mallampati Class: 2 Mouth Opening: Normal (> 3cm) Thyromental Distance: Greater than 3 cm Neck Range of Motion: Full ROM Neck Circumference: Normal Teeth Condition: Normal Dentition ASA Classification ASA Score: ASA 2 Emergency Case?: No NPO Status NPO Status: NPO Clears >2 hours, Solids >8 hours Status Status: Confirmed Anesthesia Plan Resuscitation Status: Full Code Anesthesia Technique: Epidural Anesthesia Airway Planned: Natural Airway Pain Management: Epidural Monitors Used: Standard Monitors
[2022-03-18 11:48] LABS: HCT 37.2 % (36.0-46.0); HGB 12.7 g/dL (11.2-15.7); MCH 30.5 pg (27.0-33.0); MCHC 34.1 % (32.0-36.0); MCV 89 fL (80-95); MPV 12.2 fL (8.0-11.0); Platelet Count 162 10^3/uL (130-400); RBC 4.16 10^6/uL (3.93-5.22); RDW 12.6 % (11.7-14.6); RDW-SD 41.3 fL; WBC 10.48 10^3/uL (4.4-10.8)
--- NOTE | 2022-03-18 12:45 | ANES_ITS ---
Date of service: 03/18/22 Time of Service: 12:00 Anesthesia Note Report Anesthesia Note: Requested by Dr. Vincent to discuss epidural placement for patient who wishes to attempt . After the preoperative anesthesia assessment and consent were obtained, epidural placement was attempted. Patient was anxious and having difficutly sitting through procedure. Attempt x2 interspaces unsuccessful, U/S utilized, but patient requested break. Claire Crandall CRNA senior information security engineer aware at at bedside. Will plan to follow-up for epidural placement at patient's request.
--- NOTE | 2022-03-18 12:48 | PGE_ITS ---
Date of service: 03/18/22 Time of Service: 12:48 Informed Consent Informed Consent: Regional Anesthesia, Risk,Benefits,Alternatives Discussed and Vaginal after Pelvic Exam Comments: Plan VE between 2 and 4 pm unless otherwise indicated by maternal status. TAMMI Contractions Monitor Mode: External Contraction Frequency(min): 3-5 Contraction Duration(sec): 60 Intensity: Moderate/Strong Fetus A Monitor: External (US) Heart Rate Baseline: 130 Variability: Moderate (6-25 BPM) Categories: Category I Assessment and Plan Assessment and plan (1) Patient desires vaginal after section (): Status: Acute Assessment and plan: 1. Continue with Nitrous and labor support for 2-3 hours and then reassess for cervical change unless otherwise indicated by maternal / status. 2. Will notify Dr. Vincent that epidural was not placed and patient's request to wait for a while. TAMMI Objective Abnormal lab results 03/18/22 Range/Units 11:35 MPV 12.2 H (8.0-11.0) fL Temp Pulse Resp BP Pulse Ox 98.1 F 106 H 20 111/67 100 03/18/22 11:46 03/18/22 12:14 03/18/22 11:46 03/18/22 11:46 03/18/22 12:11 Laboratory Results WBC 10.48 10^3/uL (4.4-10.8) 03/18/22 11:35 RBC 4.16 10^6/uL (3.93-5.22) 03/18/22 11:35 Hgb 12.7 g/dL (11.2-15.7) 03/18/22 11:35 Hct 37.2 % (36.0-46.0) 03/18/22 11:35 MCV 89 fL (80-95) 03/18/22 11:35 MCH 30.5 pg (27.0-33.0) 03/18/22 11:35 MCHC 34.1 % (32.0-36.0) 03/18/22 11:35 RDW 12.6 % (11.7-14.6) 03/18/22 11:35 Plt Count 162 10^3/uL (130-400) 03/18/22 11:35 MPV 12.2 fL (8.0-11.0) H 03/18/22 11:35 Patient ABO/Rh O Positive 03/18/22 11:35 Subjective Interval history since last seen: SUPERVISOR HOUSECLEANER's were unable to place epidural and patient requested a break from trying. She is using nitrous with some relief. Sitting at edge of bed and doing well with contractions. Results Hemoglobin/Hematocrit: Hgb 12.7 g/dL (11.2-15.7) 03/18/22 11:35 Hct 37.2 % (36.0-46.0) 03/18/22 11:35 Abnormal Lab Findings: Abnormal Labs 03/18/22 11:35 MPV 12.2 H
[2022-03-18] MEDS: FentaNYL/ROPIvacaine 2 mcg/ml and 0.1% 200 ML CADD Cassette EP (13:22)
--- NOTE | 2022-03-18 13:38 | W.ANESNEU ---
Epidural/Spinal Catheter Date Performed: 03/18/22 Procedure Start: 13:00 Procedure Stop: 13:11 Requesting Provider: Savanna Perez Procedure Location: Obstetrics Reason Performed: Labor Epidural Standard Monitors Applied: ECG, Blood Pressure and SpO2 Patient Position: Sitting Sedation Given (Indicate Dose Given): No Sedation given Patient Mental Status: Awake Sterility: Hand Hygiene, Surgical Cap, Surgical Mask, Sterile Gloves, Sterile Drape/Sheet and Chlorhexidine Procedure Location: L3-L4 Interspace Epidural Needle: Tuohy 18 Gauge Needle Length: 3.5 Inch Needle Approach: Midline Epidural Procedure: LOVE to Saline Used, Epidural Catheter Placed, Negative Heme and Negative CSF Flow Catheter Placed?: Catheter Placed Test Dose (Indicate Dose Given): 3ml 1.5% Lidocaine with 1:200K Epinephrine Given and Negative Test Dose Loss of Resistance Depth (cm): 5 Catheter depth at skin (cm): 10 Dressing: Sorbaview Dressing Placed Epidural Provider Bolus (Indicate Dose Given): Total Ropivacaine 0.1% with Fentanyl 2mcg/ml Given from pump. (ml) Dose:: 7 mL Additives (Indicate Dose Given ): None Infusion Medication: Medication Infusion Began Medication Infusion: Ropivacaine 0.1% with Fentanyl 2mcg/ml Maintenance Infusion Rate (ml/hour): 10 PCEA Bolus Dose (ml): 5 Block Level: N/A Paresthesia: None Ultrasound: Used to piedad site Number of Attempts (See previous attempts in note section): 1 Procedure Tolerated: No Complications Procedure Outcome: Successful Procedure Comment:: Given previous attempts and likely spine rotation, US was used to scan and piedad out. A space was found roughly 1 cm to the left of midline at ~ L3-4. Easy LOVE resistance was found at 4.5 cm and catheter was threaded without difficulty. After a negative test dose, a 7 mL load off the pump was performed with improved pain with contractions. We discussed the risks, benefits, and alternatives of spinal vs epidural, with GA backup. If she was needed to go to section she would like to elect to have the epidural removed and have her section under spinal given her last section was uncomfortable with the epidural in place. We did discuss that once the epidural comes out, if the spinal fails or I am unable to get the space, that we would have to go to GA. she and her SO understand. Performed By: Cesar Carias
--- NOTE | 2022-03-18 13:49 | W.PM.OBNL1 ---
Date of service: 03/18/22 Time of Service: 13:49 Informed Consent Informed Consent: Regional Anesthesia, Risk,Benefits,Alternatives Discussed and Vaginal after Pelvic Exam Dilation: 1 Effacement (%): 90 station: -3 Position: OP Cervix Position: posterior Contractions Monitor Mode: External Contraction Frequency(min): 3-5 Contraction Duration(sec): 50-80 Intensity: Moderate/Strong Fetus A Monitor: External (US) Heart Rate Baseline: 130 Variability: Moderate (6-25 BPM) Categories: Category I Accelerations: 15 X 15 Decelerations: None Amniotic Membrane Status: Ruptured Rupture Method: Artifical Amniotic Fluid: Meconium Amount: moderate Date of Membrane Rupture: 03/18/22 Time of Membrane Rupture: 13:42 Assessment and Plan Assessment and plan (1) Patient desires vaginal after section (): Status: Acute Assessment and plan: 1. Repeat VE after patient is comfortable status post epidural with no significant change. She agreed to AROM and then repeat assessment in 2 hours for possible change 2. Multiple position changes to encourage rotation of head 3. Reassess 1600 or prn. KH Objective Abnormal lab results 03/18/22 Range/Units 11:35 MPV 12.2 H (8.0-11.0) fL Temp Pulse Resp BP Pulse Ox 98.1 F 87 20 110/63 99 03/18/22 11:46 03/18/22 13:47 03/18/22 11:46 03/18/22 13:47 03/18/22 13:37 Laboratory Results WBC 10.48 10^3/uL (4.4-10.8) 03/18/22 11:35 RBC 4.16 10^6/uL (3.93-5.22) 03/18/22 11:35 Hgb 12.7 g/dL (11.2-15.7) 03/18/22 11:35 Hct 37.2 % (36.0-46.0) 03/18/22 11:35 MCV 89 fL (80-95) 03/18/22 11:35 MCH 30.5 pg (27.0-33.0) 03/18/22 11:35 MCHC 34.1 % (32.0-36.0) 03/18/22 11:35 RDW 12.6 % (11.7-14.6) 03/18/22 11:35 Plt Count 162 10^3/uL (130-400) 03/18/22 11:35 MPV 12.2 fL (8.0-11.0) H 03/18/22 11:35 Patient ABO/Rh O Positive 03/18/22 11:35 Vital Signs Reviewed: Yes Subjective Interval history since last seen: Anesthesia was able to return and place epidural which is working well for patient at this time. She was OK with AROM and VE at 1342 /-3 AROM thin mec fluid. Patient will try positions to try to change OP presentation. Agrees to repeat exam in 2 hours or prn. KH Results Hemoglobin/Hematocrit: Hgb 12.7 g/dL (11.2-15.7) 03/18/22 11:35 Hct 37.2 % (36.0-46.0) 03/18/22 11:35 Abnormal Lab Findings: Abnormal Labs 03/18/22 11:35 MPV 12.2 H
[2022-03-18 13:53] LABS: Source Nasal/Nares
[2022-03-18 14:26] LABS: COVID-19 PCR Negative (Negative)
[2022-03-18] MEDS: Lactated Ringers 500 ML IV (15:33)
[2022-03-18] MEDS: Acetaminophen 325 MG TAB (15:53)
--- NOTE | 2022-03-18 16:48 | W.PM.OBNL1 ---
Date of service: 03/18/22 Time of Service: 16:48 Informed Consent Informed Consent: Regional Anesthesia, Risk,Benefits,Alternatives Discussed and Vaginal after Pelvic Exam Dilation: 1 Effacement (%): 90 station: -3 Contractions Monitor Mode: External Contraction Frequency(min): 3-5 Contraction Duration(sec): 50-60 Intensity: Moderate Fetus A Monitor: External (US) Heart Rate Baseline: 120 Variability: Moderate (6-25 BPM) Categories: Category I Accelerations: 15 X 15 Decelerations: None Assessment and Plan Assessment and plan (1) Patient desires vaginal after section (): Status: Acute Assessment and plan: 1. No cervical change despite continued contractions, AROM and good pain relief 2. Reviewed option of expectant management VS repeat C/S, Madeleine and her prefer to meet their baby by RC/S 3. Dr. Vincent aware and will begin arrangements to move forward with C/S 4. Malik placed and is draining large amounts of clear urine. KH Objective Abnormal lab results 03/18/22 Range/Units 11:35 MPV 12.2 H (8.0-11.0) fL Temp Pulse Resp BP Pulse Ox 98.1 F 65 16 111/64 97 03/18/22 11:46 03/18/22 16:36 03/18/22 16:25 03/18/22 16:36 03/18/22 16:25 Laboratory Results WBC 10.48 10^3/uL (4.4-10.8) 03/18/22 11:35 RBC 4.16 10^6/uL (3.93-5.22) 03/18/22 11:35 Hgb 12.7 g/dL (11.2-15.7) 03/18/22 11:35 Hct 37.2 % (36.0-46.0) 03/18/22 11:35 MCV 89 fL (80-95) 03/18/22 11:35 MCH 30.5 pg (27.0-33.0) 03/18/22 11:35 MCHC 34.1 % (32.0-36.0) 03/18/22 11:35 RDW 12.6 % (11.7-14.6) 03/18/22 11:35 Plt Count 162 10^3/uL (130-400) 03/18/22 11:35 MPV 12.2 fL (8.0-11.0) H 03/18/22 11:35 COVID-19 Source Nasal/Nares 03/18/22 13:30 SARS-CoV-2 (PCR) Negative (Negative) 03/18/22 13:30 Patient ABO/Rh O Positive 03/18/22 11:35 Antibody Screen NEGATIVE 03/18/22 11:35 Vital Signs Reviewed: Yes Subjective Interval history since last seen: No cervical changes, patient is now ready to move forward and meet her baby by C/S. Dr. Vincent aware and will review plans with OR. KH Results Hemoglobin/Hematocrit: Hgb 12.7 g/dL (11.2-15.7) 03/18/22 11:35 Hct 37.2 % (36.0-46.0) 03/18/22 11:35 Abnormal Lab Findings: Abnormal Labs 03/18/22 11:35 MPV 12.2 H
[2022-03-18] MEDS: Sodium Citrate 30 ML CUP (17:09)
--- NOTE | 2022-03-18 17:10 | OBCE_ITS ---
Date of service: 03/18/22 Time of Service: 17:10 Assessment and Plan Assessment and plan (1) Patient desires vaginal after section (): Status: Acute Assessment and plan: Unsuccessful trial of labor. Patient counseled regarding repeat delivery.Preop counseling: She was informed of the risks of procedure including risk of damage to bowel, bladder, and blood vessels during the time of the delivery. If any of those injuries were to occur she may require a repair at the time of surgery or blood transfusion or possible hysterectomy. I reviewed the risk of infection and the administration of IV Abx prior to the surgery. Her questions answered and consent was obtained (2) Uterine contractions: Status: Acute History of Present Illness History of Present Illness Chief Complaint: Unsuccessful trial of labor, arrest of cervical dilatation Narrative: Patient is a 26-year-old 3 para 1 female currently at 40W6D EGA who presented earlier today with painful regular contractions beginning early this morning. Cervical exam was approximately 1 cm dilated with a high vertex presentation. Went on to have an painful regular contractions she received a epidural for labor analgesia. Patient was followed over the course of the afternoon and continues to have regular contractions and rupture membranes was performed with meconium stained amniotic fluid. Afte approximately 4 hours of observation with regular contractions decision was made to proceed with a repeat delivery for arrest of dilatation and unsuccessful trial of labor Consults Consult date: 03/18/22 Requesting physician: Savanna Perez Review of Systems Narrative: Patient comfortable with labor analgesia. 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 High fiber has helped. Uses Dicyclomine PRN. History of heartburn (~2018) s/p several normal EGDs History of migraine hemiplegic--[facility] [place]; resolved s/p History of sleep walking ?Amitriptyline related Surgical History (Updated 08/06/21 @ 15:18 by Jamaica Berger) H/O dilation and curettage (~02/2019) missed miscarriage History of esophagogastroduodenoscopy (EGD) (~2018) 2013 & 2019-->normal; neg celiac biopsies Hx laparoscopic cholecystectomy (~05/17/19) [facility] Hx of appendectomy (~1997) Hx of section (~05/02/20) 05/02/2020. Arrest of dilation and descent at 41 weeks EGA. Crystal Alicia. Family History Mother Diverticulosis of colon with hemorrhage Hypertension w/ Asthma H/O: hysterectomy Father Heart disease stent; mild heart attack COPD (chronic obstructive pulmonary disease) H/O nicotine Aneurysm of heart Paternal Grandfather Dementia Paternal Grandmother Dementia Maternal Grandfather Dementia Maternal Grandmother Uterine cancer Leukemia chronic myeloid leukemia Other Alcohol use disorder Depression Social History Smoking/Tobacco Use Status: Never Smoking risk assessment performed?: Yes Alcohol Intake: never Drug use: Never Substance use type: does not use Adopted: No Caregiver/Support person: No Foster care: No Household members: spouse and children Housing: house Number of Children: 1 number of grandchildren: 0 Communication Needs: None Education Level: college Details: Associate's Degree Do you need help understanding health information?: Rarely current occupation: stay at home parent Pets and animals: Yes (1, 6) Pets and animals: cat(s) and dog(s) Sexually active: Yes Do you think of yourself as: straight/heterosexual Current gender identity: female What is your relationship status?: How often do you talk on the phone with friends or family?: three or more times per week How often do you get together with friends or relatives?: three or more times per week Do you belong to any clubs or organized social groups?: no Panel score (0-1 are the most socially isolated patients): 2 What type of physical activity do you participate in: walking and regular exercise Duration: 30-45 minutes/day Frequency: daily Rosemarie/Baptism: None Special rosemarie needs: No Seatbelt use: always Helmet use: Yes Helmet use: always Drive intox or ride w/intox lead driver: No Working smoke detector in home: Yes Fire extinguisher in home: Yes Carbon monox detector in home: Yes Do you feel safe at home: Yes Do you feel safe in your relationship?: Yes History History 3 Para 1 Hx # Term Pregnancies 1 Multiple births 0 Hx # Pregnancies 0 Ectopic pregnancies 0 AB induced 0 Hx Number of Living Children 1 AB spontaneous 1 Past Pregnancies Del. Date GA/Weeks # Preg Succ Route Wgt Sex Labor Lgth Anesth esia Location [facility] 04/08/[address] Bauer 05/02/20 41 No 7 lb 12.517 oz Female yocasta [email or web address]'josse Delivery Date: 04/08/19 Last Updated by: Belkis Rebolledo LPN Miscarriage at 8 with a D/C on 04/08/19 Delivery Date: 05/02/20 Last Updated by: Savanna Rodriguez CNM labor, IOL postdates, arrest at 3-4 cm for many hrs, then FHT decels. Inadequate anesthesia during surgery. wound infection. Exam Const General: comfortable and no acute distress Nutritional Appearance: overweight Orientation: alert, awake and oriented x3 Resp Effort & Inspection: normal respiratory effort Auscultation: clear to auscultation bilaterally Cardio Rate: regular rate Rhythm: regular rhythm GI Inspection: normal to inspection (Gravid. No focal abdominal tenderness) General: deferred (Patient is most recent SVE performed by Lovely Perez CNM) Skin General skin exam: no rashes or lesions noted Extrem General: normal to inspection Psych Appearance: grossly normal Mental Status: mental status grossly normal Speech and Movement: speech and movement normal Mood: congruent mood (Patient patient is agreeable to having a repeat delivery) Results Last Vital Signs Temp 98.1 F 03/18/22 11:46 Pulse 77 03/18/22 17:06 Resp 16 03/18/22 16:25 BP 103/66 03/18/22 17:06 Pulse Ox 97 03/18/22 16:25 Labs Result diagrams: 03/18/22 11:35 Labs: Laboratory Results - last 24 hr 03/18/22 03/18/22 03/18/22 11:35 11:35 13:30 WBC 10.48 RBC 4.16 Hgb 12.7 Hct 37.2 MCV 89 MCH 30.5 MCHC 34.1 RDW 12.6 Plt Count 162 MPV 12.2 H COVID-19 Source Nasal/Nares SARS-CoV-2 (PCR) Negative Patient ABO/Rh O Positive Antibody Screen NEGATIVE
[2022-03-18] MEDS: CLINDAMYCIN 900 MG/50 ML BAG 50 MG IVPB (17:29)
[2022-03-18] MEDS: Lactated Ringers 1,000 ML 200 ML IV (17:40)
[2022-03-18] MEDS: Bupivacaine 0.25% Pres-Free 30 ML VIAL (18:05)
--- NOTE | 2022-03-18 19:21 | W.ANESPOSTOP ---
Postoperative Evaluation Date, Time and Location Date Performed: 03/18/22 Time Performed: 19:21 Patient Location: Obstetrics Vital Signs Most Recent Imported Vital Signs: Most Recent Vital Signs Temp Pulse Resp BP Pulse Ox 36.7 C 77 18 103/66 97 03/18/22 17:18 03/18/22 17:06 03/18/22 17:18 03/18/22 17:06 03/18/22 16:25 Most Recent Manually Entered Vital Signs: Adult Blood Pressure: 102/60 Heart Rate: 72 Respirations: 22 Oxygen Saturation (%): 95 Temperature (C): 36.4 C Pain Score (0-10 Scale): 0 Pain Score Most Recent Pain Score: Most Recent Pain Score Pain Level 9 03/18/22 11:46 Assessment Mental Status: Awake (Alert & Oriented to Patient Baseline) Airway and Respiratory Function: Patent airway with normal (patient baseline) respiratory exam Cardiovascular Function: Hemodynamically Stable Hydration Status: Adequately Hydrated Nausea & Vomiting: No Nausea or Vomiting Pain: Other (spinal not fully worn off. ) Peripheral Nerve Block: Patient did not receive a nerve block
--- NOTE | 2022-03-18 19:27 | W.PM.OP ---
Date of service: 03/18/22 Time of Service: 19:27 Operative Note Operative Note DATE OF PROCEDURE: 03/18/22 PRE-OP DIAGNOSIS: IUP at 40W6D EGA, in labor, arrest of dilation, unsuccessful trial of labor. PROCEDURE: Unscheduled repeat low-transverse delivery SURGEON: Mone Vincent ASSISTING SURGEON: Savanna Perez Refer to Anesthesia Record ESTIMATED BLOOD LOSS: 400 PATHOLOGY: other (Cord blood to lab) COMPLICATIONS: None Patient was transported to: floor Patient's condition: stable Indications: 26-year-old female at 40W6D EGA who presented and labor morning of 03/18/2022. At that time she was 1 cm dilated. She continues to contract regularly throughout the day received an epidural for labor analgesia. AROM revealed meconium stained amniotic fluid. heart rate was reassuring throughout her labor. Despite adequate contractions she had minimal cervical change and no descent of the vertex. She agreed to a repeat delivery Findings: Viable female in the OP position with meconium stained amniotic fluid. Weight: 7lb8oz Apgars:8/9. No evidence of cystotomy on retrograde bladder filling. Normal tubes and ovaries normal uterus. Adhesions of bladder to lower uterine segment present, fascia and rectus muscles with dense adhesions. Her parents plan to name her Lana Wolf. Procedure Description: Patient was taken to the operating room she is placed in the sitting position and spinal anesthesia was administered without difficulty. She was then placed in the dorsal supine position with a leftward tilt. SCDs and a Malik catheter to gravity drainage were in place. A vaginal prep with Betadine was performed and the patient was prepped and draped in the usual sterile fashion.Surgical timeout was performed. After a adequate level of anesthesia was achieved a Pfannenstiel skin incision was made approximately 2 cm superior to the pubic symphysis using a scalpel and the underlying subcutaneous tissue dissected using Bovie electrocautery to the level of the rectus fascia. The rectus fascia was then nicked in the midline and the fascial incision extended laterally using curved Ordaz scissors and Bovie electrocautery. 2 Elijah clamps were applied to the superior rectus fascia and the rectus fascia was dissected off of the underlying rectus muscles using Bovie electrocautery and blunt technique. A similar technique was carried out on the inferior rectus fascia. The vesicle uterine peritoneum was densely adherent to the lower uterine segement and was carefully dissected off the site and retracted away from the operative field with a bladder blade. Rectus muscles were using curved Ordaz scissors allowing entry into the peritoneum. The The peritoneal incision was extended superiorly and caudally with curved Ordaz scissors with care taken to identify the superor aspect of the bladder. The vesicle-uterine peritoneum over lower uterine segment was incised with curved Ordaz scissors and the bladder flap created bluntly. A scalpel was used to incise the lower uterine segment in a transverse fashion. The uterine incision was extended bluntly and the amniotic sac was ruptured with meconium stained amniotic fluid noted. A single gloved hand was placed into the uterine cavity and the head was successfully delivered in the OP position through the uterine incision followed by the trunk and extremities with the assistance of fundal pressure. The cord was doubly clamped and cut and the handed off to the waiting pediatric team. Cord blood was obtained and the placenta was extracted with a combination of fundal massage and gentle cord traction. The uterus was exteriorized cleared of all clots and debris and the uterine incision reapproximated with a running lock suture of 0 Vicryl followed by a second imbricating suture of 0 Vicryl. The urinary bladder was retrograde filled with 60cc of sterile formula and the bladder carefully inspected and there was no evidence of leaking of formula from the bladder. The bladder edges were identified and were remote from the lower uterine segment. Uterine incision was noted be hemostatic. The uterus was returned to the abdomen and the paracolic gutters cleared of all clots and debris. Uterine incision, the bladder flap and the abdominal wall were all inspected and noted to be hemostatic. The rectus fascia was reapproximated with a running suture of 0 Vicryl from the right and left lateral margins and overlapping in the midline. space within the subcutaneous tissue closed with a running suture of 2-0 Vicryl. The skin incision was reapproximated with a subcuticular closure of 4-0 Monocryl. Steristrips were then applied to the incision and the incision was then covered with a dry sterile dressing. The uterus was massaged for any remaining clots and debris's. The patient was transported to recovery area in stable condition. All sponge, lap, and needle counts correct x2.
[2022-03-18] MEDS: Lactated Ringers 1,000 ML 120 ML IV (19:30)
[2022-03-18] MEDS: Oxytocin/Normal Saline 30 UNIT/500 ML BAG 95 UNITS IV (19:31)
[2022-03-18] MEDS: Naloxone 0.4 MG/ML VIAL IVP (20:00)
[2022-03-18] MEDS: ACETAMINOPHEN 1,000 MG/100 ML BTL 400 MG IVPB (21:30)
[2022-03-19] VITALS (8 sets, daily range): BP systolic 97–109; BP diastolic 53–64; PULSE 59–70; RESP 17–20; TEMP 36.6–36.9; O2SAT 97–98
[2022-03-19] MEDS: Ketorolac 30 MG/ML VIAL IVP ×3 (01:19→13:11)
[2022-03-19] MEDS: Lactated Ringers 1,000 ML 125 ML IV (06:35)
[2022-03-19 06:51] LABS: Abs Immature Grans 0.07 10^3/uL (0.0-0.06); Absolute Basophil Count 0.01 10^3/uL (0.0-0.2); Absolute Neutrophil Count 11.97 10^3/uL (1.2-6.7); Basophils % 0.1; HCT 33.2 % (36.0-46.0); HGB 11.1 g/dL (11.2-15.7); Immature Grans % 0.5; Lymphocytes % 8.2; MCH 30.7 pg (27.0-33.0); MCHC 33.4 % (32.0-36.0); MCV 92 fL (80-95); MPV 12.6 fL (8.0-11.0); Monocytes % 4.6; Neutrophils % 86.6; Platelet Count 137 10^3/uL (130-400); RBC 3.62 10^6/uL (3.93-5.22); RDW 12.8 % (11.7-14.6); RDW-SD 42.3 fL; WBC 13.82 10^3/uL (4.4-10.8)
[2022-03-19 06:52] LABS: Absolute Lymphocyte Count 1.13 10^3/uL (1.2-3.4); Absolute Monocyte Count 0.64 10^3/uL (0.1-0.8)
[2022-03-19] MEDS: Normal Saline Flush 10 ML SYR IVP ×3 (07:15→13:12)
[2022-03-19] MEDS: Docusate Sodium 100 MG CAP PO ×2 (07:27→17:51)
[2022-03-19] MEDS: HYDROmorphone 2 MG TAB PO ×3 (08:07→17:51)
--- NOTE | 2022-03-19 08:15 | W.PM.OBPNV1 ---
Date of service: 03/19/22 Time of Service: 08:15 Assessment and Plan Assessment and plan (1) Status post repeat low transverse section: Status: Acute Assessment and plan: POD1 s/p unscheduled RC/S after pt had arrest of cervical dilation during attempt. Stable H/H this am. (2) Failed trial of labor following previous , delivered: Status: Acute Assessment and plan: Continue I&O when ambulatory and simpson discontinued. Continue to support breast feeding. Exam Physical Exam Vital signs: Temp Pulse Resp BP Pulse Ox 98.4 F 67 17 102/63 98 03/19/22 08:10 03/19/22 08:10 03/19/22 08:10 03/19/22 08:10 03/19/22 08:10 Vital Signs Reviewed: Yes Narrative: UO was decreased overnight. The simpson catheter was flushed this morning and clear francisco javier urine began to flow more briskly into the simpson bag. Will continue IV hydration and discontinue simpson when ambulatory. Will monitor I&Os. Constitutional Constitutional: no acute distress Comments: Post op pt received Narcan to treat pruritis with good relief. After receiving the Narcan she began to experience more abdominal discomfort. Pt was treated with 1000mg of Acetaminophen IV with improvement in discomfort. Plan to begin PO Dilaudid for pain relief along with NSAIDs. HEENT Exam HEENT Exam: Normal Neck Exam Neck Exam: Normal Respiratory Exam Respiratory Exam: Normal Cardiovascular Exam Cardiovascular Exam: Normal Abdominal Exam Abdomen: Tender Comments: Dressing changed during the night. Serous sanguineous drainage present. Incision intact. Steristrips in place. No ecchymosis or erythema Fundal Exam Fundus: Below Umbilicus Rectal Exam Rectal Exam: Not Done Extremities Exam Extremity Exam: Normal Back/Spine/Pelvis Exam Back Exam: Normal (no bruising over spinal site. ) Skin Exam Skin Exam: Normal Neurological Exam Neurological Exam: Normal Psychiatric Exam Psychiatric Exam: Normal Results Hemoglobin/Hematocrit: Hgb 11.1 g/dL (11.2-15.7) L 03/19/22 06:36 Hct 33.2 % (36.0-46.0) L 03/19/22 06:36 Abnormal Lab Findings: Abnormal Labs 03/18/22 03/19/22 11:35 06:36 WBC 13.82 H RBC 3.62 L Hgb 11.1 L Hct 33.2 L MPV 12.2 H 12.6 H Absolute Neutrophils 11.97 H Absolute Lymphocytes 1.13 L
[2022-03-19] MEDS: Prenatal Multivitamin w/CA,FE TAB 1 TAB PO (11:56)
[2022-03-19] MEDS: Acetaminophen 325 MG TAB 650 MG PO ×2 (13:13→19:42)
[2022-03-19] MEDS: Ibuprofen 600 MG TAB PO (19:42)
[2022-03-20 04:00] VITALS: BP 102/65; PULSE 67; RESP 18; TEMP 36.3
[2022-03-20] MEDS: Acetaminophen 325 MG TAB 650 MG PO ×2 (04:03→08:08)
[2022-03-20] MEDS: HYDROmorphone 2 MG TAB PO ×2 (04:03→08:08)
[2022-03-20] MEDS: Prenatal Multivitamin w/CA,FE TAB 1 TAB PO (08:07)
[2022-03-20] MEDS: Pantoprazole 20 MG TABCR PO (08:08)
[2022-03-20 08:14] VITALS: BP 102/65; PULSE 88; RESP 14; TEMP 36.9
[2022-03-20] MEDS: Docusate Sodium 100 MG CAP PO (08:20)
--- NOTE | 2022-03-20 10:47 | W.PM.OBDISCH ---
Date of service: 03/20/22 Time of Service: 10:47 DS: Diagnosis Discharge Diagnosis (1) Status post repeat low transverse section: Status: Acute (2) Failed trial of labor following previous , delivered: Status: Acute Discharge Plan Disposition Patient Disposition: HOME Condition: Good Discharge Details Reason For Visit: Term Labor Admit Date/Time: 03/18/22 11:16 Admit Provider: Savanna Perez Attending Provider: Savanna Perez Primary Care Provider: Susan Moulton Hospital Course Hospital Course: 26-year-old female at 40W6D EGA who presented and labor morning of 03/18/2022.? At that time she was 1 cm dilated.? She continues to contract regularly throughout the day received an epidural for labor analgesia.? AROM revealed meconium stained amniotic fluid.? heart rate was reassuring throughout her labor.? Despite adequate contractions she had minimal cervical change and no descent of the vertex.? She agreed to a repeat delivery Viable female infant in the OP position with meconium stained amniotic fluid.? Weight: 7lb8oz Apgars:8/9. No evidence of cystotomy on retrograde bladder filling.? Normal tubes and ovaries normal uterus. Dense adhesions of bladder to lower uterine segment present, fascia and rectus muscles. Her parents plan to name her Lana Wolf. Discharged home on postop day #2 successfully breast-feeding tolerating a regular diet and voiding spontaneously. Patient will be discharged home with Dilaudid 2 mg every 6 hours as needed for pain along with instructions to use ibuprofen 600 mg every 6 hours for mild pain in addition to Dilaudid. She will follow-up in 2 weeks for an incision check with Dr. Vincent in 6 weeks with the [facility] service. Home Meds and New Rx's Prescriptions: No Action prenat.vits,cierra,[id number] Tablet 1 tab PO DAILY albuterol sulfate 90 mcg/actuation HFA aerosol inhaler 1 - 2 puff IH Q4H PRN (Reason: shortness of breath or wheezing) Qty: 8.5 1RF Rx Instructions: Asthma epinephrine [EpiPen 2-[place]] 0.3 mg/0.3 mL auto-injector 0.3 mg IM ONCE PRN (Reason: anaphylaxis) Qty: 1 1RF Rx Instructions: as a single dose loratadine [Claritin] 10 mg tablet 10 mg PO DAILY PRN (Reason: allergic symptoms) pantoprazole [Protonix] 20 mg tablet,delayed release (DR/EC) 20 mg PO DAILY acetaminophen 500 mg capsule 1,000 mg PO Q4H PRN promethazine 12.5 mg tablet 25 mg PO Q6H PRN (Reason: nausea and vomiting) Qty: 30 1RF Discharge Instructions Additional Instructions: F/U with Dr. Vincent in 2 weeks for inspection of incision. F/U in 6weeks with CNMs Activity:: Activity as Tolerated Equipment/Supplies:: No Equipment Needed Diet:: As Tolerated Discharge Orders Discharge Orders: Discharge Order (Routine); Ordered 03/20/22 Ordered By: Mone Vincent OB:DS Summary Contraception Discussed Contraception Discussed: No, [place] Infant Gender-Baby A: Female weight: 7 lb 8.108 oz Status at Discharge Functional status at discharge: independent ambulation Overall status at discharge: patient is progressing back to baseline Mental Status: mental status grossly normal Speech and Movement: speech and movement normal Mood: congruent mood Affect: normal affect Exam Physical Exam Vital signs: Temp Pulse Resp BP Pulse Ox 98.4 F 88 14 102/65 97 03/20/22 08:14 03/20/22 08:14 03/20/22 08:14 03/20/22 08:14 03/19/22 16:30 Vital Signs Reviewed: Yes Constitutional Constitutional: no acute distress Comments: Taking Dilaudid for pain along with NSAIDs. HEENT Exam HEENT Exam: Normal Neck Exam Neck Exam: Normal Respiratory Exam Respiratory Exam: Normal Cardiovascular Exam Cardiovascular Exam: Normal Abdominal Exam Abdomen: Tender Comments: Incision C/D/I. steristrips in place Fundal Exam Fundus: Below Umbilicus Rectal Exam Rectal Exam: Not Done Extremities Exam Extremity Exam: Normal Back/Spine/Pelvis Exam Back Exam: Normal Skin Exam Skin Exam: Normal Neurological Exam Neurological Exam: Normal Psychiatric Exam Psychiatric Exam: Normal PFSH All Active Problems (Updated 03/19/22 @ 08:33 by Mone Vincent MD) Failed trial of labor following previous , delivered (Acute) Status post repeat low transverse section (Acute) 03/18/22. Unsuccessful CARRIE. F. 7lb8oz. Lana Wolf. 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 High fiber has helped. Uses Dicyclomine PRN. History of heartburn (~2018) s/p several normal EGDs History of migraine hemiplegic--[facility] neuro; resolved s/p History of sleep walking ?Amitriptyline related Surgical History (Updated 03/19/22 @ 08:31 by Mone Vincent MD) H/O dilation and curettage (~02/2019) missed miscarriage History of esophagogastroduodenoscopy (EGD) (~2018) 2013 & 2019-->normal; neg celiac biopsies Hx laparoscopic cholecystectomy (~05/17/19) [facility] Hx of appendectomy (~1997) Hx of section (~05/02/20) 05/02/2020. Arrest of dilation and descent at 41 weeks EGA. Crystal Alicia. Family History Mother Diverticulosis of colon with hemorrhage Hypertension w/ Asthma H/O: hysterectomy Father Heart disease stent; mild heart attack COPD (chronic obstructive pulmonary disease) H/O nicotine Aneurysm of heart Paternal Grandfather Dementia Paternal Grandmother Dementia Maternal Grandfather Dementia Maternal Grandmother Uterine cancer Leukemia chronic myeloid leukemia Other Alcohol use disorder Depression Social History Smoking/Tobacco Use Status: Never Smoking risk assessment performed?: Yes Alcohol Intake: never Drug use: Never Substance use type: does not use Adopted: No Caregiver/Support person: No Foster care: No Household members: spouse and children Housing: house Number of Children: 1 number of grandchildren: 0 Communication Needs: None Education Level: college Details: Associate's Degree Do you need help understanding health information?: Rarely current occupation: stay at home parent Pets and animals: Yes (1, 6) Pets and animals: cat(s) and dog(s) Sexually active: Yes Do you think of yourself as: straight/heterosexual Current gender identity: female What is your relationship status?: How often do you talk on the phone with friends or family?: three or more times per week How often do you get together with friends or relatives?: three or more times per week Do you belong to any clubs or organized social groups?: no Panel score (0-1 are the most socially isolated patients): 2 What type of physical activity do you participate in: walking and regular exercise Duration: 30-45 minutes/day Frequency: daily Rosemarie/Mu-Ism: None Special rosemarie needs: No Seatbelt use: always Helmet use: Yes Helmet use: always Drive intox or ride w/intox electric train driver: No Working smoke detector in home: Yes Fire extinguisher in home: Yes Carbon monox detector in home: Yes Do you feel safe at home: Yes Do you feel safe in your relationship?: Yes History History 3 Para 2 Hx # Term Pregnancies 2 Multiple births 0 Hx # Pregnancies 0 Ectopic pregnancies 0 AB induced 0 Hx Number of Living Children 1 AB spontaneous 2 Past Pregnancies Del. Date GA/Weeks # Preg Succ Route Wgt Sex Labor Lgth Anesthesia Location [facility] 04/08/[address] Bauer 05/02/20 41 No 7 lb 12.517 oz Female mone jimenez 03/18/22 40 No Yes 7 lb 8 oz Female TAMMI calvo Delivery Date: 04/08/19 Last Updated by: Belkis Rebolledo LPN Miscarriage at 8 with a D/C on 04/08/19 Delivery Date: 05/02/20 Last Updated by: Savanna Rodriguez CNM labor, IOL postdates, arrest at 3-4 cm for many hrs, then FHT decels. Inadequate anesthesia during surgery. wound infection. Delivery Date: 03/18/22 Last Updated by: Mone Vincent MD Carrie with no cervical dilation. Lana Wolf. DS: Data Vitals/I&O Vitals and I&O: Vital Signs Temperature 98.4 F 03/20/22 08:14 Pulse 88 03/20/22 08:14 Pulse Rhythm Regular 03/20/22 08:14 Respiratory Rate 14 03/20/22 08:14 Respiratory Depth Normal 03/18/22 12:35 Blood Pressure 102/65 03/20/22 08:14 Blood Pressure Mean 77 03/20/22 08:14 Pulse Oximetry 97 03/19/22 16:30 Oxygen Delivery Method Room Air 03/18/22 11:46 Oxygen Flow Rate 0 03/18/22 11:46 Pain Level 3 03/20/22 08:14 Intake & Output 03/19/22 03/19/22 03/20/22 11:59 23:59 11:59 Intake Total 1000 / 1000 Output Total 875 / 2225 1350 / 2225 Balance 125 / -1225 -1350 / -1225 Intake: IV 1000 / 1000 Output: Urine 875 / 2225 1350 / 2225 Other: Urine Color Yellow Pale Urine Appearance Clear Comment catheter clogged, irrigated with NS, draining well after irrigation
== END 2022-03-20 12:00 | disposition home or self-care (01) | DRG 787 ==
PROVIDERS: Obstetrics & Gynecology Gynecology; Admitting Provider Advanced Practice Midwife; PCP Nurse Practitioner Adult Health; Visit Provider Advanced Practice Midwife
PROC: 10D00Z1 Extraction of Products of Conception, Low, Open Approach (ICD-10-PCS; CPT 59514; principal; 2022-03-18 17:05)
DX: O34.211 Maternal care for low transverse scar from previous cesarean delivery (principal); O99.354 Diseases of the nervous system complicating childbirth; O66.41 Failed attempted vaginal birth after previous cesarean delivery; Z37.0 Single live birth; Z3A.40 40 weeks gestation of pregnancy; O62.1 Secondary uterine inertia; O77.0 Labor and delivery complicated by meconium in amniotic fluid; O99.52 Diseases of the respiratory system complicating childbirth; G43.909 Migraine, unspecified, not intractable, without status migrainosus; J45.909 Unspecified asthma, uncomplicated
CPT/HCPCS: 59620; 36415; 85027; 86850; 86900; 86901; 87635; 85025; J0131; J1100; J1580; J1885; J2310; J2370; J2405; J3010

== ENCOUNTER 2023-07-08 09:42 | Outpatient (REF) | payer MEDICAID, SELFPAY | END 2023-07-08 09:43 | disposition home or self-care (01) | LOC: LBN 09:42 | PROVIDERS: PCP Nurse Practitioner Adult Health; Visit Provider Physician Assistant | DX: R30.0 Dysuria (principal); N39.0 Urinary tract infection, site not specified; B37.31 Acute candidiasis of vulva and vagina | CPT/HCPCS: 87086; 87480; 87510; 87660 ==

== ENCOUNTER 2024-04-07 02:31 | Outpatient (CLI) | payer MEDICAID, SELFPAY ==
[2024-04-07 15:13] LABS: HCT 36.5 % (36.0-46.0); HGB 12.1 g/dL (11.2-15.7); MCH 30.7 pg (27.0-33.0); MCHC 33.2 % (32.0-36.0); MCV 93 fL (80-95); MPV 9.7 fL (8.0-11.0); Platelet Count 234 10^3/uL (130-400); RBC 3.94 10^6/uL (3.93-5.22); RDW 12.4 % (11.7-14.6); RDW-SD 42.6 fL; WBC 8.11 10^3/uL (4.4-10.8)
[2024-04-07 15:26] LABS: Panorama Kit Sent via Fed Ex
[2024-04-07 16:03] LABS: ALT 18 U/L (14-59); AST 14 U/L (15-37); Albumin 3.4 g/dL (3.4-5.0); Alkaline Phosphatase 50 U/L (46-116); Anion Gap 4.8 mmol/L (3-11); BUN 16 mg/dL (7-18); Bilirubin, Total 0.19 mg/dL (0.2-1.0); CO2 27.2 mmol/L (21.0-32.0); CREATININE 0.6 mg/dL (0.55-1.02); Calcium 8.5 mg/dL (8.5-10.1); Chloride 106 mmol/L (98-107); Estimated GFR 124.53 (mL/min/1.73m2); Glucose 80 mg/dL (74-106); Sodium 138 mmol/L (136-145); TSH (W/Ref FT4) 1.42 uIU/mL (0.36-3.74); Total Protein 6.6 g/dL (6.4-8.2)
[2024-04-07 23:30] LABS: Hepatitis B Surface Ag Negative (Negative)
[2024-04-07 23:59] LABS: Hepatitis C Ab w Rflx HCV PCR Negative (Negative)
[2024-04-08] LABS: HIV-1/2 Ag & Ab Screen Negative (Negative)
[2024-04-08 10:58] LABS: Varicella IgG Antibody Positive (See Note)
[2024-04-08 13:26] LABS: Rubella IgG Ab (UVM) Equivocal (See Note)
[2024-04-10 13:23] LABS: Syphilis IgG w/Reflex Nonreactive (Nonreactive)
== END 2024-04-07 02:32 | disposition home or self-care (01) ==
LOC: LBO 02:32
PROVIDERS: PCP Nurse Practitioner Adult Health; Visit Provider Advanced Practice Midwife
DX: F43.23 Adjustment disorder with mixed anxiety and depressed mood (principal); Z34.91 Encounter for supervision of normal pregnancy, unspecified, first trimester
CPT/HCPCS: 36415; 80053; 85027; 86787; 86803; 86850; 86900; 86901; 87340; 87389; 84443; 86762; 86780

== ENCOUNTER 2024-04-07 14:49 | Outpatient (REF) | payer MEDICAID, SELFPAY ==
--- NOTE | 2024-04-07 14:30 | PAPFT_PTH ---
PATIENT: Madeleine Menchaca LOC: [facility] U#:[id number] AGE/SX: 28/F ROOM: RE04/07/[address]: Jamaica Berger CNM : 1995 BED: DIS: 04/07/2024 SPEC #: [id number] RECD: 04/07/24 17:57 STATUS: RACHAEL MORENO #: [id number] MIAH: 04/07/24 14:[address]: Jamaica Berger DEPT: [facility] Cytology RECD BY: Naomi De La Cruz ENTERED: 04/07/24 17:57 SP TYPE: PAPFT NAZ DR: Susan Moulton APRN Tissues: 1 - CX/ENDOCX FOR PAP SMEARS Procedures: PAP THIN PREP/UVM Screening Comments: [id number] (CHLAMYDIA/GC)
[2024-04-08 10:57] LABS: Chlamydia Result Negative (Negative); GC Result Negative (Negative)
== END 2024-04-07 14:50 | disposition home or self-care (01) ==
LOC: LBN 14:49
PROVIDERS: PCP Nurse Practitioner Adult Health; Visit Provider Advanced Practice Midwife
DX: Z34.91 Encounter for supervision of normal pregnancy, unspecified, first trimester (principal)
CPT/HCPCS: 87491; 87591; 88142; 87086

== ENCOUNTER 2024-06-09 10:30 | Outpatient (REF) | payer MEDICAID, SELFPAY | END 2024-06-09 10:31 | disposition home or self-care (01) | LOC: LBN 10:30 | PROVIDERS: PCP Nurse Practitioner Adult Health; Visit Provider Nurse Practitioner Family | DX: J02.9 Acute pharyngitis, unspecified (principal); R68.89 Other general symptoms and signs; J06.9 Acute upper respiratory infection, unspecified | CPT/HCPCS: 87070 ==

== ENCOUNTER 2024-06-14 02:01 | Outpatient (CLI) | payer MEDICAID, SELFPAY ==
--- NOTE | 2024-06-14 07:15 | DI.US_ITS ---
Exam(s) US OB 2-3 TRIMESTER EXAM: US OB 2-3 TRIMESTER CLINICAL HISTORY: anatomy survey,z34.90,z34.91. TECHNIQUE: Transabdominal obstetrical ultrasound performed. COMPARISON: US US OB 2-3 TRIMESTER from 10/10/2021 FINDINGS: Number of fetuses: 1 position: VARIED heart rate: 150bpm Placental location: There is a grade 1 posterior placenta. No evidence of previa. Amniotic fluid index: Amount of fluid is within normal limits. ANATOMICAL SURVEY: Within normal limits. BIOMETRIC DATA: BPD: 3.96cm, 18weeks HC: 15.89cm, 18weeks 5days AC: 13.14cm, 18weeks 5days FL: 2.42cm, 17weeks 2days Cisterna magna: 5.4mm Cerebellum: 1.61cm Lateral ventricle: 0.7 cm EFW: 223.11g, 0.51lb, 7.6% Composite Age: 18weeks 1day ТАТЬЯНА: 11/14/2024 Heart Rate: 150bpm ANATOMICAL SURVEY: Four-chambered heart: Unremarkable. RVOT: Unremarkable. LVOT: Unremarkable. Left-sided stomach: Unremarkable. urinary bladder: Unremarkable. Bilateral kidneys: The left kidney was incompletely imaged. The right kidney is grossly unrema rkable. Three-vessel cord: Unremarkable. Cord insertion: The placental cord insertion site will be re-evaluated when the patient returns. Posterior fossa: Unremarkable. ventricles: Unremarkable. nose/lips: Unremarkable. Palate: Unremarkable. spine: The sacrum and coccygeal region cannot be well visualized. The remainder of the spine i s unremarkable. Two arms and two legs: Unremarkable. IMPRESSION: 1. Single live intrauterine gestation as above. 2. The patient is scheduled to return for repeat imaging of the spine, placental cord insertion site, the left kidney and the nuchal fold. DATA REPOSITORY:
== END 2024-06-14 02:21 ==
LOC: DI 02:01
PROVIDERS: PCP Nurse Practitioner Adult Health; Visit Provider Advanced Practice Midwife
DX: Z34.92 Encounter for supervision of normal pregnancy, unspecified, second trimester (principal); Z3A.19 19 weeks gestation of pregnancy
CPT/HCPCS: 76805

== ENCOUNTER 2024-06-22 00:31 | Outpatient (CLI) | payer MEDICAID, SELFPAY ==
--- NOTE | 2024-06-22 | DI.US_ITS ---
Exam(s) US OB F/U FACIAL/LVOT/RVOT EXAM: US OB F/U FACIAL/LVOT/RVOT CLINICAL HISTORY: F/u 06/14 US, placental cord insertion, spine, lt kidney, nuchal fold. COMPARISON: US US OB 2-3 TRIMESTER from 06/14/2024 TECHNIQUE: Transabdominal obstetrical ultrasound performed. FINDINGS: The patient returned for additional imaging of the lower spine, left kidney, nuchal fold and placenta l cord insertion. Sonographic images demonstrate a single intrauterine gestation. Heart Rate: 159bpm Number of fetuses: 1 position: Variable Placental location: Posterior. No evidence of previa. Placental cord insertion measures 2.4 cm from the placental margin. The bowel is noted to be more echogenic than normal, more echogenic than liver but less than pk ne. There is a question mild dilatation of the right lateral ventricle compared to the left which measure s 7 millimeters. The nuchal fold there is some not ideally demonstrated however appears thickened at 9 millimete rs. The distal aspect of the sacrum is not optimally visualized.. No associated cyst or mass is identifi ed. Amniotic fluid index: ZULAY was not performed to over the amount of amniotic fluid appears low. IMPRESSION: 1. ZULAY was not performed however the amniotic fluid amount appears visually low. 2. Distal sacrum not optimally visualized. 3. Mildly echogenic bowel. 4. Question mild dilatation of the right lateral ventricle compared to left. 5. Thickening and nuchal fold at 9 millimeters. Further evaluation of the above findings is recommended. Unexpected findings DATA REPOSITORY:
== END 2024-06-22 00:51 ==
LOC: DI 00:31
PROVIDERS: PCP Nurse Practitioner Adult Health; Visit Provider Advanced Practice Midwife
DX: Z34.82 Encounter for supervision of other normal pregnancy, second trimester (principal); Z3A.19 19 weeks gestation of pregnancy
CPT/HCPCS: 76815

== ENCOUNTER 2024-08-03 09:34 | Emergency (ER) | payer MEDICAID, SELFPAY ==
[2024-08-03 09:53] VITALS: BP 113/73; PULSE 86; RESP 14; TEMP 36.7; O2SAT 98
[2024-08-03 10:25] VITALS: RESP 16
--- NOTE | 2024-08-03 10:40 | ED.GENADUL_ITS ---
Discharge Plan Disposition Patient Disposition: Home Condition: Stable Discharge Details Clinical Impression: Thrombosed hemorrhoids Primary Care Provider: Susan Moulton ED Provider: Clementina Arechiga Home Meds and New Rx's Prescriptions: Continued cetirizine [Zyrtec] 10 mg tablet 10 mg PO DAILY Qty: 90 0RF famotidine [Pepcid] 20 mg tablet 20 mg PO DAILY Qty: 90 5RF epinephrine [EpiPen 2-[place]] 0.3 mg/0.3 mL auto-injector 0.3 mg IM ONCE PRN (Reason: anaphylaxis) Qty: 1 1RF Rx Instructions: as a single dose fluticasone propionate [Flovent HFA] 44 mcg/actuation HFA aerosol inhaler 1 - 2 puff inhalation BID PRN (Reason: asthma exacerbations) Qty: 10.6 1RF Rx Instructions: Trial use for asthma exacerbations albuterol sulfate 90 mcg/actuation HFA aerosol inhaler 1 - 2 puff IH Q4H PRN (Reason: shortness of breath or wheezing) Qty: 8.5 1RF Rx Instructions: Asthma hydroxyzine HCl 25 mg tablet See Rx Instructions PO .COMPLEX Qty: 60 1RF Rx Instructions: * May take 1/2 - 1 tab, by mouth, TID, prn * Do not take with Zyrtec. bupropion HCl [Wellbutrin XL] 150 mg tablet extended release 24 hr 150 mg PO QAM Qty: 30 2RF Discharge Instructions Instructions: Hemorrhoids ED Additional Instructions: The thrombosed hemorrhoid was excised today. There is a small incision and may continue to bleed for the next couple of days. The dressing that is there will fall off on its own or you may remove it in 1-2 days. You may continue with lukewarm sitz bath's. Keep clean and dry. If any further concerns you may return to the ER or follow-up with general surgery. After 2 to 3 days you may continue to apply Preparation H if that improves. The numbing medicine will wear off in a couple of hours. Follow up with primary care provider in 3-5 days. Return to ED sooner if any worsening or concerns. Please take Tylenol or Ibuprofen with food every 4-6 hours as needed for pain and swelling. Thank you for allowing us to care for you today. Referrals: Susan Moulton NP [Primary Care Provider] - Donnie Adair MD [ [facility] STAFF PHYSICIAN] - Return if symptoms worsen HPI General Mode of arrival: ambulatory . Date/Time Provider Initiated Documentation: 08/03/24 09:35 . Limitations to Documentation: no limitations . Information obtained by: patient, RN notes reviewed and old records reviewed . HPI Narrative: 29-year-old female with a history of hemorrhoids presents to the ER with approximately 24 hours of rectal pain. She has had her hemorrhoid excised at general surgery's office last year. She has been using Preparation H with little to no relief. Denies any other associated symptoms. Does have a history of irritable bowel syndrome. Related Data Home Medications ?Medication ?Instructions ?Recorded ?Confirmed epinephrine 0.3 mg/0.3 mL 0.3 mg (0.3 mL) IM ONCE PRN 07/22/22 08/03/24 injection, auto-injector (EpiPen anaphylaxis #1 ea 2-[place]) fluticasone propionate 44 1 - 2 puff inhalation BID PRN 07/22/22 08/03/24 mcg/actuation HFA aerosol inhaler asthma exacerbations #10.6 grams (Flovent HFA) albuterol sulfate 90 mcg/actuation 1 - 2 puff inhalation Q4H PRN 05/09/23 08/03/24 aerosol inhaler shortness of breath or wheezing #8.5 grams cetirizine 10 mg tablet (Zyrtec) 10 mg PO DAILY #90 tabs 04/07/24 08/03/24 famotidine 20 mg tablet (Pepcid) 20 mg PO DAILY #90 tabs 04/07/24 08/03/24 hydroxyzine HCl 25 mg tablet See Rx Instructions PO .COMPLEX 07/15/24 08/03/24 anxiety/insomnia #60 tabs bupropion HCl 150 mg 24 hr tablet, 150 mg PO QAM #30 tabs 07/22/24 08/03/24 extended release (Wellbutrin XL) Previous Rx's ?Medication ?Instructions ?Recorded epinephrine 0.3 mg/0.3 mL 0.3 mg (0.3 mL) IM ONCE PRN 07/22/22 injection, auto-injector (EpiPen anaphylaxis #1 ea 2-[place]) fluticasone propionate 44 1 - 2 puff inhalation BID PRN 07/22/22 mcg/actuation HFA aerosol inhaler asthma exacerbations #10.6 grams (Flovent HFA) albuterol sulfate 90 mcg/actuation 1 - 2 puff inhalation Q4H PRN 05/09/23 aerosol inhaler shortness of breath or wheezing #8.5 grams cetirizine 10 mg tablet (Zyrtec) 10 mg PO DAILY #90 tabs 04/07/24 famotidine 20 mg tablet (Pepcid) 20 mg PO DAILY #90 tabs 04/07/24 hydroxyzine HCl 25 mg tablet See Rx Instructions PO .COMPLEX 07/15/24 anxiety/insomnia #60 tabs bupropion HCl 150 mg 24 hr tablet, 150 mg PO QAM #30 tabs 07/22/24 extended release (Wellbutrin XL) Allergies Allergy/AdvReac Type Severity Reaction Status Date / Time lamotrigine Allergy Severe Skin Rash Verified 08/03/24 10:01 oxycodone Allergy Intermediate Dizziness/Lighthead, Verified 08/03/24 10:01 nausea apple Allergy Anaphylaxis Verified 08/03/24 10:01 Cephalosporins Allergy Rash (full Verified 08/03/24 10:01 body) chico Allergy Swelling/Ed Verified 08/03/24 10:01 flor peach Allergy Swelling/Ed Verified 08/03/24 10:01 flor plum Allergy Swelling/Ed Verified 08/03/24 10:01 flor Sulfa (Sulfonamide Allergy Dizziness/L Verified 08/03/24 10:01 Antibiotics) ighthead verapamil Allergy dizziness, Verified 08/03/24 10:01 headaches almonds Allergy Swelling/Ed Uncoded 08/03/24 10:01 flor mushrooms Allergy Swelling/Ed Uncoded 08/03/24 10:01 flor General Stated Complaint: GenMedical JENNY: 4 Exam Const General: cooperative, healthy appearing, well developed and well groomed Nutritional Appearance: average body habitus Orientation: alert, awake and oriented x3 GI Inspection: normal to inspection Rectal Exam - female: normal sphincter tone, hemorrhoids (External hard hemorrhoid noted.) and tenderness Course Vital Signs Vital signs: Vital Signs Temperature 36.7 C 08/03/24 09:53 Pulse 86 08/03/24 09:53 Respiratory Rate 14 08/03/24 09:53 Blood Pressure 113/73 08/03/24 09:53 Pulse Oximetry 98 08/03/24 09:53 Temperature 36.7 C 08/03/24 09:53 Temperature Source Oral 08/03/24 09:53 Pulse 86 08/03/24 09:53 Respiratory Rate 16 08/03/24 10:25 Respiratory Effort Normal 08/03/24 10:25 Respiratory Depth Normal 08/03/24 10:25 Respiratory Pattern Normal 08/03/24 10:25 Blood Pressure 113/73 08/03/24 09:53 Blood Pressure Position Sitting 08/03/24 09:53 Pulse Oximetry 98 08/03/24 09:53 Oxygen Delivery Method Room Air 08/03/24 09:53 Oxygen Flow Rate 0 08/03/24 09:53 Pain Level 7 08/03/24 09:53 Procedure Abscess Drainage Date of Procedure: 08/03/24 Time of Procedure: 11:13 Provider that performed the procedure: Clementina Patel Time Out Performed: Yes Patient Consented: Verbally Location of Exam: Perineum Indication: Mass (Thrombosed hemorrhoid), Pain and Swelling. Local anesthetic: Lidocaine 1% and with epi, Amount of Local Anesthetic Used (mL): 3. Procedure Prep: Hand hygiene, Surgical Mask, Chlohexidine, Alcohol and 11 blade. Technique used, Incised with Blade. Amount of fluid expressed(mL): 2. Irrigation: no irrigation Packing: None (Surgicel foam dressing applied). Outcome: Sucessful Procedure Description/Note: Thrombosed hemorrhoid excised elliptical incision made, approximately 1 cm blood clot removed Surgifoam dressing applied patient reported improvement in pain.. Complications: None Medical Decision Making 29-year-old female with a history of hemorrhoids presents to the ER with approximately 24 hours of rectal pain. She has had her hemorrhoid excised at general surgery's office last year. She has been using Preparation H with little to no relief. Denies any other associated symptoms. Does have a history of irritable bowel syndrome. Patient requesting excision, discussed anesthetic and infiltration she verbalized understanding has had the procedure before in the past. 1101: Hemorrhoid external skin infiltrated with 1% lidocaine with epi, 2 mL. Patient tolerated well. Will give approximately 2 minutes and return for the procedure. See procedure note. Patient was anesthetized with 1% lidocaine with epi, area prepped with chlorhexidine and alcohol. Anesthesia achieved. Thrombosed hemorrhoid successfully excised, a blood clot was expressed from the area, area left open for drainage. Dressing applied. Patient tolerated well. Surgifoam dressing applied to area and given an ABD pad. Patient had improvement in pain. Discussed home care, follow-up care and to be seen by general surgery if any recurrence or concerns. Discussed tricked return instructions verbalized understanding. This text was generated using Klip dictation system, please disregard any oddities of phrase or misspellings. Medical Records Medical records reviewed: Yes I reviewed the patient's medical records. Quality:[facility] [place] Health Related Social Needs: Health related social needs details N/A PFSH All Active Problems (Updated 08/03/24 @ 11:15 by Clementina Arechiga NP) Grief associated with loss of fetus (Acute) Abnormal ultrasound (Acute) Agenesis of the corpus callosum, ventriculomegaly, cardiac defect. Opting for termination. Seen at [facility]. Abnormal US (Acute) Echogenic bowel, slight ventricular dilation, mild thickening in the nuchal fold, poor visualization of the sacrum. Seen at [facility] 06/30/2024-ventricular asymmetry, increased nuchal fold, possible absence of the corpus callosum. MFM consult pending ADHD (attention deficit hyperactivity disorder) (Acute) Bipolar 2 disorder (Acute) Thrombosed hemorrhoids (Acute) Rubella non-immune status, antepartum (Acute) Previous delivery affecting , antepartum (Acute) prev c/s x2 (Acute) Nausea and vomiting during (Acute) 03/17/24. AM N/V at 7w EGA. Rx for Ondansetron. 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 High fiber has helped. Uses Dicyclomine PRN. History of heartburn (~2018) s/p several normal EGDs History of alcohol use sobriety 2018 Anxiety (~2018) Cyst of Bartholin's gland Surgical History Status post repeat low transverse section 03/18/22. Unsuccessful CARRIE. F. 7lb8oz. Lana Luciano. Patient desires vaginal after section () H/O dilation and curettage (~02/2019) missed miscarriage Hx laparoscopic cholecystectomy (~05/17/19) [facility] Hx of section (~05/02/20) 05/02/2020. Arrest of dilation and descent at 41 weeks EGA. F. Maral. 03/18/22 second child History of esophagogastroduodenoscopy (EGD) (~2018) 2013 & 2018-->normal; neg celiac biopsies Hx of appendectomy (~1997) Family History Mother Diverticulosis of colon with hemorrhage Hypertension w/ Asthma H/O: hysterectomy Colon polyp high number & suspicion; recommend early screening for Madeleine at 30yo Father Heart disease stent; mild heart attack COPD (chronic obstructive pulmonary disease) H/O nicotine Aneurysm of heart Paternal Grandfather Dementia Paternal Grandmother Dementia Maternal Grandfather Dementia Maternal Grandmother Uterine cancer Leukemia chronic myeloid leukemia Other Alcohol use disorder Depression Social History Smoking/Tobacco Use Status: Never Smoking risk assessment performed?: Yes Alcohol Intake: never Drug use: Never Substance use type: does not use Adopted: No Caregiver/Support person: No Foster care: No Household members: spouse and children Housing: house Number of Children: 2 number of grandchildren: 0 Communication Needs: None Education Level: college Details: Associate's Degree Do you need help understanding health information?: Rarely current occupation: stay at home parent Pets and animals: Yes (1, 6) Pets and animals: cat(s) and dog(s) Sexually active: Yes Do you think of yourself as: straight/heterosexual Current gender identity: female What is your relationship status?: How often do you talk on the phone with friends or family?: three or more times per week How often do you get together with friends or relatives?: three or more times per week How often do you attend taoism or spiritism services?: decline to answer Do you belong to any clubs or organized social groups?: no Panel score (0-1 are the most socially isolated patients): 2 What type of physical activity do you participate in: walking, regular exercise and other Details: Stationary bike, Weights Duration: 30-45 minutes/day Frequency: 3-4 times per week Rosemarie/Holiness: None Special rosemarie needs: No Seatbelt use: always Helmet use: Yes (No reason) Helmet use: never Drive intox or ride w/intox armored car guard and driver: No Working smoke detector in home: Yes Fire extinguisher in home: Yes Carbon monox detector in home: Yes Do you feel safe at home: Yes Do you feel safe in your relationship?: Yes History History 4 Para 2 Hx # Term Pregnancies 2 Multiple births 0 Hx # Pregnancies 0 Ectopic pregnancies 0 AB induced 0 Hx Number of Living Children 2 AB spontaneous 1 Past Pregnancies Del. Date GA/Weeks # Preg Succ Route Wgt Sex Labor Lgth Anesth esia Location Prov [facility] 04/08/[address] Bauer 05/02/20 41 No Yes 3530 g Female yocasta jimenez 03/18/22 40 No Yes 3401.943 g Female a oc, [facility] Delivery Date: 04/08/19 Last Updated by: Belkis Rebolledo LPN Miscarriage at 8 with a D/C on 04/08/19 Delivery Date: 05/02/20 Last Updated by: Savanna Rodriguez CNM labor, IOL postdates, arrest at 3-4 cm for many hrs, then FHT decels. Inadequate anesthesia during surgery. wound infection. Delivery Date: 03/18/22 Last Updated by: [place] BUTLER with no cervical dilation. Lana Wolf. POCUS Exam (ED) Limited Soft Tissue Exam PROVIDER THAT PERFORMED THE STUDY: Clementina Arechiga
[2024-08-03] MEDS: Lidocaine 1% Pres-Free W/EPI 1/200,000 30 ML VIAL IJ (11:07)
[2024-08-03] MEDS: Gelatin SPONGE 12-7 MM PKT 1 EACH TP (11:07)
== END 2024-08-03 11:38 | disposition home or self-care (01) ==
LOC: ER 11:27
PROVIDERS: Emergency Provider Registered Nurse Emergency; PCP Nurse Practitioner Adult Health
DX: K64.5 Perianal venous thrombosis (principal)
CPT/HCPCS: 46083; 99283; J2004

== ENCOUNTER 2024-08-03 17:03 | Emergency (ER) | payer MEDICAID, SELFPAY ==
[2024-08-03 17:15] VITALS: BP 106/74; PULSE 80; RESP 12; TEMP 37.2; O2SAT 98
[2024-08-03] MEDS: Lidocaine 1% Pres-Free W/EPI 1/200,000 30 ML VIAL IJ (18:49)
[2024-08-03] MEDS: Lidocaine/Epinephri/Tetracaine Topical Gel 3 ML TP (18:50)
[2024-08-03] MEDS: Docusate Sodium 100 MG CAP PO (19:20)
[2024-08-03 19:24] VITALS: BP 112/72; PULSE 78; RESP 14; TEMP 37; O2SAT 98
--- NOTE | 2024-08-03 21:29 | W.ED.GENAD ---
Discharge Plan Disposition Patient Disposition: Home Condition: Stable Discharge Details Clinical Impression: Thrombosed hemorrhoids Primary Care Provider: Susan Moulton ED Provider: Naomi Trejo Home Meds and New Rx's Prescriptions: Continued cetirizine [Zyrtec] 10 mg tablet 10 mg PO DAILY Qty: 90 0RF famotidine [Pepcid] 20 mg tablet 20 mg PO DAILY Qty: 90 5RF epinephrine [EpiPen 2-[place]] 0.3 mg/0.3 mL auto-injector 0.3 mg IM ONCE PRN (Reason: anaphylaxis) Qty: 1 1RF Rx Instructions: as a single dose fluticasone propionate [Flovent HFA] 44 mcg/actuation HFA aerosol inhaler 1 - 2 puff inhalation BID PRN (Reason: asthma exacerbations) Qty: 10.6 1RF Rx Instructions: Trial use for asthma exacerbations albuterol sulfate 90 mcg/actuation HFA aerosol inhaler 1 - 2 puff IH Q4H PRN (Reason: shortness of breath or wheezing) Qty: 8.5 1RF Rx Instructions: Asthma hydroxyzine HCl 25 mg tablet See Rx Instructions PO .COMPLEX Qty: 60 1RF Rx Instructions: * May take 1/2 - 1 tab, by mouth, TID, prn * Do not take with Zyrtec. bupropion HCl [Wellbutrin XL] 150 mg tablet extended release 24 hr 150 mg PO QAM Qty: 30 2RF Discharge Instructions Instructions: Hemorrhoids ED Additional Instructions: follow-up with surgery sitz baths daily take 100 mg of colace daily motrin/tylenol as needed for pain change dressing twice daily or with BM return earlier with new or worsening complaints Referrals: Donnie Adair MD [ [facility]IAN] - Discharge Data Discharge Date/Time-TO BE ENTERED AT DEPARTURE: 08/03/24 19:24 HPI General Date/Time Provider Initiated Documentation: 08/03/24 17:34. HPI Narrative: 29-year-old female with persistent rectal bleeding. Thrombosed hemorrhoid excised earlier today, but bleeding persists. No abdominal pain or discomfort. Not on anticoagulants. Related Data Home Medications ?Medication ?Instructions ?Recorded ?Confirmed epinephrine 0.3 mg/0.3 mL 0.3 mg (0.3 mL) IM ONCE PRN 07/22/22 08/03/24 injection, auto-injector (EpiPen anaphylaxis #1 ea 2-[place]) fluticasone propionate 44 1 - 2 puff inhalation BID PRN 07/22/22 08/03/24 mcg/actuation HFA aerosol inhaler asthma exacerbations #10.6 grams (Flovent HFA) albuterol sulfate 90 mcg/actuation 1 - 2 puff inhalation Q4H PRN 05/09/23 08/03/24 aerosol inhaler shortness of breath or wheezing #8.5 grams cetirizine 10 mg tablet (Zyrtec) 10 mg PO DAILY #90 tabs 04/07/24 08/03/24 famotidine 20 mg tablet (Pepcid) 20 mg PO DAILY #90 tabs 04/07/24 08/03/24 hydroxyzine HCl 25 mg tablet See Rx Instructions PO .COMPLEX 07/15/24 08/03/24 anxiety/insomnia #60 tabs bupropion HCl 150 mg 24 hr tablet, 150 mg PO QAM #30 tabs 07/22/24 08/03/24 extended release (Wellbutrin XL) Previous Rx's ?Medication ?Instructions ?Recorded epinephrine 0.3 mg/0.3 mL 0.3 mg (0.3 mL) IM ONCE PRN 07/22/22 injection, auto-injector (EpiPen anaphylaxis #1 ea 2-[place]) fluticasone propionate 44 1 - 2 puff inhalation BID PRN 07/22/22 mcg/actuation HFA aerosol inhaler asthma exacerbations #10.6 grams (Flovent HFA) albuterol sulfate 90 mcg/actuation 1 - 2 puff inhalation Q4H PRN 05/09/23 aerosol inhaler shortness of breath or wheezing #8.5 grams cetirizine 10 mg tablet (Zyrtec) 10 mg PO DAILY #90 tabs 04/07/24 famotidine 20 mg tablet (Pepcid) 20 mg PO DAILY #90 tabs 04/07/24 hydroxyzine HCl 25 mg tablet See Rx Instructions PO .COMPLEX 07/15/24 anxiety/insomnia #60 tabs bupropion HCl 150 mg 24 hr tablet, 150 mg PO QAM #30 tabs 07/22/24 extended release (Wellbutrin XL) Allergies Allergy/AdvReac Type Severity Reaction Status Date / Time lamotrigine Allergy Severe Skin Rash Verified 08/03/24 17:20 oxycodone Allergy Intermediate Dizziness/Lighthead, Verified 08/03/24 17:20 nausea apple Allergy Anaphylaxis Verified 08/03/24 17:20 Cephalosporins Allergy Rash (full Verified 08/03/24 17:20 body) chico Allergy Swelling/Ed Verified 08/03/24 17:20 flor peach Allergy Swelling/Ed Verified 08/03/24 17:20 flor plum Allergy Swelling/Ed Verified 08/03/24 17:20 flor Sulfa (Sulfonamide Allergy Dizziness/L Verified 08/03/24 17:20 Antibiotics) ighthead verapamil Allergy dizziness, Verified 08/03/24 17:20 headaches almonds Allergy Swelling/Ed Uncoded 08/03/24 17:20 flor mushrooms Allergy Swelling/Ed Uncoded 08/03/24 17:20 flor General Stated Complaint: Recheck JENNY: 4 Exam Narrative Exam Narrative: General Appearance: Alert, oriented, no acute distress. Vital signs: Hemodynamically stable. HEENT: Within normal limits. Respiratory: Within normal limits. Skin: Warm and dry, no rash. Neurological: Normal. Course Vital Signs Vital signs: Vital Signs Temperature 37.2 C 08/03/24 17:15 Pulse 80 08/03/24 17:15 Respiratory Rate 12 08/03/24 17:15 Blood Pressure 106/74 08/03/24 17:15 Pulse Oximetry 98 08/03/24 17:15 Temperature 37.0 C 08/03/24 19:24 Temperature Source Oral 08/03/24 17:15 Pulse 78 08/03/24 19:24 Respiratory Rate 14 08/03/24 19:24 Blood Pressure 112/72 08/03/24 19:24 Blood Pressure Position Sitting 08/03/24 17:15 Pulse Oximetry 98 08/03/24 19:24 Pain Level 0 08/03/24 19:24 Medical Decision Making Procedure: Thrombosed hemorrhoid excised earlier today. Remaining thrombosed hemorrhoid injected with 4 cm3 of 1% lidocaine with epinephrine, incision extended with 11 blade, clot removed with forceps. Procedure tolerated well, bleeding controlled. Initial Assessment: 29-year-old female with persistent rectal bleeding post excision of thrombosed hemorrhoid. No worsening pain or abdominal discomfort. Not anticoagulated. Hemodynamically stable. ED Course: - Large clot with remaining thrombosed hemorrhoid identified. - Applied let over hemorrhoid and injected with 4 cm? of 1% lidocaine with epinephrine. - Extended incision with 11 blade and removed remainder of clot with forceps. - Procedure tolerated well, bleeding controlled. - Encouraged to start Colace and use sitz baths at home. - Reviewed return precautions, patient expressed understanding. Final Assessment: Bleeding controlled post-procedure. Patient to start Colace and use sitz baths. Follow-up with surgery on . Clinical Impression: - Thrombosed hemorrhoid Disposition: - Follow-Up: Follow-up with surgery on . MDM Components Evaluation: - Number of Differential Diagnoses or Management Options: Thrombosed hemorrhoid - Amount and Complexity of Data Reviewed: Physical exam, procedure details - Risk of Complication and Morbidity or Mortality: Low risk given controlled bleeding and stable condition. Quality:[facility] Health Related Social Needs: Health related social needs details N/A PFSH All Active Problems (Updated 08/03/24 @ 19:11 by ELSIE Arce) Grief associated with loss of fetus (Acute) Abnormal ultrasound (Acute) Agenesis of the corpus callosum, ventriculomegaly, cardiac defect. Opting for termination. Seen at [facility]. Abnormal US (Acute) Echogenic bowel, slight ventricular dilation, mild thickening in the nuchal fold, poor visualization of the sacrum. Seen at [facility] 06/30/2024-ventricular asymmetry, increased nuchal fold, possible absence of the corpus callosum. MFM consult pending ADHD (attention deficit hyperactivity disorder) (Acute) Bipolar 2 disorder (Acute) Thrombosed hemorrhoids (Acute) Rubella non-immune status, antepartum (Acute) Previous delivery affecting , antepartum (Acute) prev c/s x2 (Acute) Nausea and vomiting during (Acute) 03/17/24. AM N/V at 7w EGA. Rx for Ondansetron. 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 High fiber has helped. Uses Dicyclomine PRN. History of heartburn (~2018) s/p several normal EGDs History of alcohol use sobriety 2017 Anxiety (~2018) Cyst of Bartholin's gland Surgical History Status post repeat low transverse section 03/18/22. Unsuccessful CARRIE. F. 7lb8oz. Lana Wolf. Patient desires vaginal after section () H/O dilation and curettage (~02/2019) missed miscarriage Hx laparoscopic cholecystectomy (~05/17/19) [facility] Hx of section (~05/02/20) 05/02/2020. Arrest of dilation and descent at 41 weeks EGA. FMarielos Alicia. 03/18/22 second child History of esophagogastroduodenoscopy (EGD) (~2018) 2013 & 2019-->normal; neg celiac biopsies Hx of appendectomy (~1997) Family History Mother Diverticulosis of colon with hemorrhage Hypertension w/ Asthma H/O: hysterectomy Colon polyp high number & suspicion; recommend early screening for Madeleine at 30yo Father Heart disease stent; mild heart attack COPD (chronic obstructive pulmonary disease) H/O nicotine Aneurysm of heart Paternal Grandfather Dementia Paternal Grandmother Dementia Maternal Grandfather Dementia Maternal Grandmother Uterine cancer Leukemia chronic myeloid leukemia Other Alcohol use disorder Depression Social History Smoking/Tobacco Use Status: Never Smoking risk assessment performed?: Yes Alcohol Intake: never Drug use: Never Substance use type: does not use Adopted: No Caregiver/Support person: No Foster care: No Household members: spouse and children Housing: house Number of Children: 2 number of grandchildren: 0 Communication Needs: None Education Level: college Details: Associate's Degree Do you need help understanding health information?: Rarely current occupation: stay at home parent Pets and animals: Yes (1, 6) Pets and animals: cat(s) and dog(s) Sexually active: Yes Do you think of yourself as: straight/heterosexual Current gender identity: female What is your relationship status?: How often do you talk on the phone with friends or family?: three or more times per week How often do you get together with friends or relatives?: three or more times per week How often do you attend nondenominational or caodaism services?: decline to answer Do you belong to any clubs or organized social groups?: no Panel score (0-1 are the most socially isolated patients): 2 What type of physical activity do you participate in: walking, regular exercise and other Details: Stationary bike, Weights Duration: 30-45 minutes/day Frequency: 3-4 times per week Rosemarie/Episcopalian: None Special rosemarie needs: No Seatbelt use: always Helmet use: Yes (No reason) Helmet use: never Drive intox or ride w/intox lumber driver: No Working smoke detector in home: Yes Fire extinguisher in home: Yes Carbon monox detector in home: Yes Do you feel safe at home: Yes Do you feel safe in your relationship?: Yes History History 4 Para 2 Hx # Term Pregnancies 2 Multiple births 0 Hx # Pregnancies 0 Ectopic pregnancies 0 AB induced 0 Hx Number of Living Children 2 AB spontaneous 1 Past Pregnancies Del. Date GA/Weeks # Preg Succ Route Wgt Sex Labor Lgth Anesthesia Location [facility] 04/08/[address] Bauer 05/02/20 41 No Yes 3530 g Female yocasta jimenez 03/18/22 40 No Yes 3401.943 g Female TAMMI calvo Delivery Date: 04/08/19 Last Updated by: Belkis Rebolledo LPN Miscarriage at 8 with a D/C on 04/08/19 Delivery Date: 05/02/20 Last Updated by: Savanna Rodriguez CNM labor, IOL postdates, arrest at 3-4 cm for many hrs, then FHT decels. Inadequate anesthesia during surgery. wound infection. Delivery Date: 03/18/22 Last Updated by: [place] BUTLER with no cervical dilation. Lana Wolf.
== END 2024-08-03 19:24 | disposition home or self-care (01) ==
PROVIDERS: Emergency Provider Physician Assistant; PCP Nurse Practitioner Adult Health
DX: K64.5 Perianal venous thrombosis (principal)
CPT/HCPCS: 46083; 99283; J2004